=== PATIENT | female | born 1985 | race Caucasian/White ===

== ENCOUNTER 2021-07-18 23:27 | Emergency (ER) | payer MEDICAID ==
[~2021-07-18] VITALS: Ht 175.3 cm; Wt 77.3 kg
[~2021-07-18 23:27] MED LIST: CIPR-202 PO; CLIN-97 PO; CLIN150C8 PO; CYCL-1 PO; HYDR1TAB PO; IBUP-1984 PO; IBUP-1986 PO; ZOF4T PO
[2021-07-18 23:30] VITALS: BP 171/97
[2021-07-19 00:10] LABS: URINE HCG NEGATIVE (NEG)
[2021-07-19] MEDS ORDERED: CefTRIAXone 1000mg IM Kit (w/lidocaine diluent) IM ONE (00:15)
[2021-07-19] MEDS ORDERED: azithromycin 250mg tablet PO ONE (00:15)
[2021-07-19] MEDS ORDERED: DOXY100C76 PO (00:16)
--- NOTE | 2021-07-19 00:25 | NUR ---
PIV site c/d/i s complication or adverse. IVF bolus started as ordered, infusing well without complication. Offered pt blanket, declined. Pt laying supine, bed in lowest position, wheels locked, rail 2/2 up, call talbot in reach. Pt covered with warm blanket. Offered anything else, pt declined offer.
== END 2021-07-19 00:48 | disposition home or self-care (01) ==
LOC: ER 23:28
DX: Z20.2 Contact with and (suspected) exposure to infections with a predominantly sexual mode of transmission (principal); A54.9 Gonococcal infection, unspecified; A53.9 Syphilis, unspecified; F31.9 Bipolar disorder, unspecified; F15.90 Other stimulant use, unspecified, uncomplicated; Z88.1 Allergy status to other antibiotic agents; Z79.2 Long term (current) use of antibiotics; Z79.899 Other long term (current) drug therapy
CPT/HCPCS: 81025; 96372; 99283; J0696

== ENCOUNTER 2022-10-24 19:15 | Emergency (ER) | payer SELFPAY ==
[~2022-10-24] VITALS: Ht 172.7 cm; Wt 77.2 kg
[~2022-10-24 19:15] MED LIST changes: +CLIN-214 PO; -CLIN150C8 PO
[2022-10-24 19:21] VITALS: BP 168/109; PULSE 95; RESP 16; TEMP 97.3; O2SAT 98
[2022-10-24] MEDS ORDERED: CefTRIAXone 500MG IM Kit w/LIDOcaine IM ONE (20:25)
[2022-10-24] MEDS ORDERED: azithromycin 250mg tablet PO ONE (20:25)
[2022-10-24] MEDS ORDERED: ibuprofen tablet 400 MG TABLET PO ONE (20:25)
--- NOTE | 2022-10-24 20:31 | NUR ---
AMANDA CALLED AND WILL DISPATCH OUT OFFICER
[2022-10-24] MEDS ORDERED: IBUP-1986 PO (20:33)
[2022-10-24] MEDS ORDERED: DOXY-1 PO (20:33)
[2022-10-24 21:05] LABS: URINE HCG NEGATIVE (NEG)
--- NOTE | 2022-10-24 21:16 | NUR ---
SO AT BS
== END 2022-10-24 21:32 | disposition home or self-care (01) ==
LOC: ER 19:16
DX: J34.89 Other specified disorders of nose and nasal sinuses (principal); Z11.3 Encounter for screening for infections with a predominantly sexual mode of transmission; F31.9 Bipolar disorder, unspecified; F15.10 Other stimulant abuse, uncomplicated; Z88.1 Allergy status to other antibiotic agents; Z88.0 Allergy status to penicillin; Z79.899 Other long term (current) drug therapy; Y04.8XXA Assault by other bodily force, initial encounter; Y93.89 Activity, other specified; Y92.89 Other specified places as the place of occurrence of the external cause; Y99.8 Other external cause status
CPT/HCPCS: 36415; 81025; 86592; 87491; 87591; 96372; 99283; J0696

== ENCOUNTER 2022-12-29 13:48 | Emergency (ER) | payer MEDICAID | END 2022-12-29 14:41 | disposition left against medical advice (07) | LOC: ER 13:48 | DX: T14.8XXA Other injury of unspecified body region, initial encounter (principal); Z53.21 Procedure and treatment not carried out due to patient leaving prior to being seen by health care provider; Y04.0XXA Assault by unarmed brawl or fight, initial encounter; Y93.89 Activity, other specified; Y92.89 Other specified places as the place of occurrence of the external cause; Y99.8 Other external cause status ==

== ENCOUNTER 2024-09-11 14:08 | Inpatient (IN) | payer MEDICAID ==
[~2024-09-11] VITALS: Ht 175.3 cm; Wt 86.3 kg
--- NOTE | 2024-09-11 14:23 | Physician Documentation ---
History of Present Illness Chief Complaint: Abdominal Pain Stated Complaint: ABD SWELLING Primary Medical Doctor: bette pond HPI 39 year old female reports abdominal pain and a recent hospitalization at [facility] where she was seen for what sounds like a CHF exacerbation. She was discharged yesterday. However she reports that she was trying to get her caregivers at [facility] to work her up for abodminal paind and believes that her complaints were ignored. She has a hard time describing her abdominal pain, points all over, and also says that it is accompanied by pus issuing from her vagina. It is unclear if she received a CT scan or further workup at [facility] for this. She denies fevers and shortness of breath, N/V/D, and urinary symptoms. She also reports using methamphetamine last night. Medication Reconciliation Allergies: Coded Allergies: amoxicillin (Unverified Allergy, Unknown, 09/11/24) Uncoded Allergies: PENICILLIN (Allergy, Intermediate, 05/02/17) RASH Scheduled Ciprofloxacin HCl (Ciprofloxacin HCl), 1 TAB PO BID Clindamycin HCL* (Clindamycin HCL*), 1 CAP PO Q6H Clindamycin HCL* (Clindamycin HCL*), 1 CAP PO Q6H Clindamycin HCl (Clindamycin HCl CAPSULE), 2 CAP PO TID Hydrocodone/Acetaminophen (Vicodin 5-500 Tablet), 1 TAB PO Q6H Ibuprofen (Ibuprofen), 1 TAB PO Q8H Ibuprofen (Ibuprofen), 1 TAB PO Q8H Ibuprofen* (Motrin*), 1-2 TAB PO Q8H Ondansetron ODT* (Zofran ODT*), 4 MG PO Q6H Scheduled PRN Cyclobenzaprine* (Cyclobenzaprine*), 1 TABLET PO Q8H PRN for muscle spasms Miscellaneous Medications [None], (Reported) Past Medical History Past Medical History: No Pertinent History, Bipolar Past Surgical History: no surgical history Alcohol Use: None Drug Use: methamphetamine Lives with: S/O Lives In: Home Occupation: employed Review of Systems All Other Systems at this time: Reviewed and Negative Physical Exam Vital Signs: RN Vital Signs have been reviewed: Yes, Temperature: 96.8, Source: Temporal, Heart Rate: 92, Respiratory Rate: 18, BP: 129/92, Pulse Oximetry: 98, Weight: 86.350 Physical Exam HEENT: PERRL, moist oral mucosa, EOMI Pulmonary: No respiratory distress Cardiac: RRR, no murmur, rub or gallop GI: nondistended, soft, diffusely tender without peritoneal signs, no guarding, no rebound MSK: no deformity 1+ pitting edema to bilateral lower extremities Skin: w/d/i, no rash Neuro: alert, nonfocal Psych: normal affect Progress Progress Note We are able to get some records from [facility] and CT scan performed at their facility in the last 24 hours showed some fatty hepatomegaly as well as some anasarca with mesenteric edema and cardiomegaly but does not appear to show any infectious process. When discussing these results along with her labs patient became upset and eloped. Results/Orders Results/Orders Vital Signs 09/11/24 14:16 Temp 96.8 Pulse 92 Resp 18 B/P (MAP) 129/92 Pulse Ox 98 Medical Decision Making Findings 39 year old female with symptoms as above. Workup has thus far been significant for elevated total bilirubin and a RUQ ultrasound which demonstrates thickened gallbladder wall and pericholecystic fluid without notable gallstones. Some labs and CT scan are pending. Thus far she has a diagnosis of acalculous cholecystitis and I will sign her out to the oncoming ER physician for further workup and disposition. Additional Comments Ddx = PID, cervicitis, cholecystitis, choledocholithiasis, UTI, liver disease, CHF exacerbation Departure Disposition: 30 STILL A PATIENT Admitted to Inpatient Unit: yes, to hospitalist Impression: Primary Impression: Acalculous cholecystitis Condition: Guarded Referrals: NO PRIMARY CARE PROVIDER (PCP) Education Educated: Patient Additional Comment Medical Screen Exam History: This is a 39-year-old female who presents with progressively worsening lower extremity edema and abdominal edema causing pain, patient reports that she has been having shortness shortness breath on exertion and when lying flat. Patient additionally reports feeling ill lately reporting subjective fever. Exam: VITALS: Reviewed and as above. GENERAL: Alert, nontoxic appearing, no apparent distress. RESPIRATORY: No increased work of breathing, no respiratory distress, speaking in full clear sentences CV: Nonpitting lower extremity edema SKIN: Skin of lower extremities is reddened though blanchable MSE performed in triage and patient returned to ED lobby by nursing staff The note accurately reflects work and decisions made by me.SARITA Mattson 09/11/24 14:23 Signature Scribe Signature: . Attestation: The note accurately reflects work and decisions made by me.Edmond Forrester MD 09/11/24 20:07 . JOHN LOREDO Sep 11, 2024 14:23 BETZY MACEDO MD Sep 11, 2024 19:07 EDMOND FORRESTER MD Sep 11, 2024 20:08
--- NOTE | 2024-09-11 14:40 | ELECTROCARDIOGRAPH REPORT ---
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 Jose E Horvath Measurements Intervals [place] Rate: 90 P: 79 OK: 176 QRS: 100 QRSD: 116 T: -33 QT: 386 QTc: 473 Interpretive Statements Sinus rhythm LAE, consider biatrial enlargement Incomplete right bundle branch block Electronically Signed On 09-21-2024 18:43:[address] Jose E Horvath Please click the below link to view image of tracing.
[2024-09-11 14:47] LABS: BASOPHILS % (AUTO) 0.7 % (0-1); EOSINOPHILS % (AUTO) 0.5 % (0-6); HEMATOCRIT 46.2 % (35.0-45.0); HEMOGLOBIN 15.3 g/dl (12.0-16.0); LYMPHOCYTES # (AUTO) 1.4 X10'3 (1.1-4.8); LYMPHOCYTES % (AUTO) 20.9 % (21-51); MEAN CORPUSCULAR HEMOGLOBIN 29.8 PG (27.0-31.0); MEAN CORPUSCULAR VOLUME 90.2 FL (78-98); MEAN PLATELET VOLUME 7.6 FL (7.4-10.4); MONOCYTES # (AUTO) 0.5 X10'3 (0-0.9); MONOCYTES % (AUTO) 8.3 % (2-12); NEUTROPHILS # (AUTO) 4.5 X10'3 (1.8-7.7); NEUTROPHILS % (AUTO) 69.6 % (42-75); PLATELET COUNT 216 X10'3 (140-440); RED BLOOD COUNT 5.13 X10'6 (4.20-5.60); WHITE BLOOD COUNT 6.5 X10'3 (4.5-11.0)
[2024-09-11 15:01] LABS: ALANINE AMINOTRANSFERASE 51 U/L (12-78); ALBUMIN 3.7 G/DL (3.4-5.0); ALKALINE PHOSPHATASE 276 IU/L (46-116); ANION GAP 6 (8-16); ASPARTATE AMINO TRANSFERASE 50 U/L (10-37); BILIRUBIN,TOTAL 4.2 MG/DL (0.1-1.0); BLOOD UREA NITROGEN 19 MG/DL (7-18); CALCIUM 9.2 MG/DL (8.5-10.1); CHLORIDE 102 MMOL/L (99-107); CREATININE 1.12 MG/DL (0.40-0.90); GLUCOSE 112 MG/DL (70-104); POTASSIUM 4.8 MMOL/L (3.5-5.1); SODIUM 138 MMOL/L (135-145); TOTAL CARBON DIOXIDE 30.1 MMOL/L (24-32); eCRCL 70 ML/MIN; eGFR 54 ML/MIN
[2024-09-11 15:08] LABS: LIPASE 22 U/L (16-77); PRO BRAIN NATRIURETIC PEPTIDE 2387 PG/ML (0-125)
[2024-09-11 15:19] LABS: ALBUMIN/GLOBULIN RATIO 0.9 (1.1-1.5); TOTAL PROTEIN 7.9 G/DL (6.4-8.2)
--- NOTE | 2024-09-11 15:28 | RADIOLOGY REPORT ---
EXAM: DI CHEST,SINGLE VIEW HISTORY: CP COMPARISON: None TECHNIQUE: Portable upright AP view of the chest was performed. FINDINGS: No pneumothorax, consolidative infiltrates, or pulmonary edema. The heart is enlarged. IMPRESSION: Cardiomegaly without evidence of acute intrathoracic process.
[2024-09-11] MEDS ORDERED: iohexol 300mg/ml 100ml inj. ONE (16:49)
[2024-09-11 17:03] LABS: BILIRUBIN,URINE NEGATIVE (Neg); CLARITY,URINE CLEAR (Clear); COLOR,URINE YELLOW (Yellow); GLUCOSE, URINE NEGATIVE (Neg); KETONES,URINE NEGATIVE (Neg); LEUKOCYTE ESTERASE ,URINE NEGATIVE (Neg); NITRITES, URINE NEGATIVE (Neg); OCCULT BLOOD,URINE NEGATIVE (Neg); PROTEIN,URINE 100 mg/dl (Neg); UROBILINOGEN,URINE 0.2 E.U/dL (0.2-1.0)
[2024-09-11 17:07] LABS: URINE HCG NEGATIVE (NEG)
[2024-09-11 17:09] LABS: UA COLLECTION TYPE NON-SPECIFIED
[2024-09-11 17:12] LABS: BACTERIA,URINE FEW /HPF (Neg); MUCUS STRANDS NONE SEEN /LPF (Neg); RBC,URINE 0-2 /HPF (0-2); SQUAMOUS EPITHELIAL CELL,UR NONE SEEN /LPF (FEW); TRANSITIONAL EPI CELLS,URINE FEW /HPF; WBC,URINE 0-4 /HPF (0-4)
[2024-09-11 17:13] LABS: AMORPHOUS URATES 1+
--- NOTE | 2024-09-11 17:47 | RADIOLOGY REPORT ---
COMPLETE ABDOMEN ULTRASOUND: INDICATION: abdominal pain, elevated t. bili COMPARISON: None TECHNIQUE: Grayscale sonographic evaluation of the abdomen. FINDINGS: Liver: Right lobe of the liver measures 18.5 cm. Slightly coarsened echotexture. Patent main portal vein with appropriately directed flow. Gallbladder and biliary tree: Gallbladder argueta thickened measuring 5 mm with trace pericholecystic f luid. The gallbladder is not distended. There i gallbladder sludge. 5 mm cholesterol polyp. Kidneys: Right kidney measures 12.2 cm. Normal echotexture and parenchymal thickness. No hydronephrosis, solid mass or nephrolithiasis. IMPRESSION: 1. Gallbladder wall thickening with sludge with trace pericholecystic fluid without distension. Findi ngs are equivocal for cholecystitis. If there is clinical concern consider HIDA scan. 2. 5 mm cholesterol gallbladder polyp, given size no definite follow-up needed.
--- NOTE | 2024-09-11 18:42 | RADIOLOGY REPORT ---
Indication: abdominal pain Technique: CT axial images of the abdomen and pelvis are obtained with intravenous contrast. Coronal and sagittal reformats were obtained. Radiation Dose Information: CTDI volume is 20 mGy. Dose-length product is 1008 mGy*cm Comparison: None FINDINGS: Cardiomegaly. Right heart enlargement reflux of contrast the hepatic veins and IVC. Adrenal glands, spleen and pancreas unremarkable. No enhancing hepatic lesion. Hepatic periportal edema. IVC distention. Pericholecystic edema. No hydronephrosis. Bilateral perinephric edema. Stomach partially distended. Small bowel loops demonstrate moderate distention. Moderate volume stool in the colon. Bowel wall edema and thickening of the ascending and proximal tra nsverse colon. Abdominal aorta normal in caliber. Mesenteric edema. Scattered mesenteric and retroperitoneal lymph nodes measuring approximately 1 cm in short axis. Bladder is partially distended. Small amount of ascites fluid extending to the pelvis. Left inguinal lymph nodes measuring up to 10 mm. Right inguinal lymph nodes measuring up to 11 mm. Soft tissue edema / anasarca. [id number] thoracolumbar degenerative disc disease most pronounced at L5-S1. IMPRESSION: Mesenteric edema, periportal edema, pericholecystic edema, perinephric edema, IVC distention. These findings could be secondary to fluid /volume overload, septicemia, heart failure, infectious and infl ammatory processes. Correlate clinically. Cardiomegaly. Reflux of contrast in the hepatic veins and IVC may represent underlying right heart dy sfunction. There is evidence of right heart enlargement. Mesenteric edema. Small moderate ascites fluid which extends to the pelvis. Soft tissue edema / anasarca. Mesenteric, retroperitoneal lymph nodes up to 1 cm with differential considerations including reactiv e etiologies, infection/inflammatory processes, malignancy. Bowel wall edema and thickening of the ascending and transverse colon which can be secondary to genaro l hypertension related enteropathy, inflammatory bowel disease, colitis. Portal vein suboptimally characterized. Recommend abdominal ultrasound to ensure portal vein patency and exclude portal vein thrombosis. Findings described.
[2024-09-11 19:24] LABS: URINE AMPHETAMINE SCREEN POSITIVE (Neg); URINE BARBITUATE SCREEN NEGATIVE (Neg); URINE BENZODIAZEPINES SCREEN NEGATIVE (Neg); URINE CANNABINOID SCREEN NEGATIVE (Neg); URINE COCAINE SCREEN NEGATIVE (Neg); URINE METHADONE SCREEN NEGATIVE (Neg); URINE OPIATE SCREEN NEGATIVE (Neg); URINE PHENCYCLIDINE SCREEN NEGATIVE (Neg)
[2024-09-11] MEDS: CefTRIAXone/D5W-Rocephin 1gm 50 ML IV ONE (19:59)
[2024-09-11] MEDS: PERFLUTREN PROTEIN-A MICROSPHR (Optison) 0.22 MG/ML 3ML VIAL IV ONE ×2 (20:45→22:25)
[2024-09-11] MEDS ORDERED: magnesium hydroxide 30ml (MOM) UD suspension PO PRN (22:25)
[2024-09-11] MEDS ORDERED: HYDROcodone/acetaminophen 5mg/325mg tablet PO PRN (22:25)
[2024-09-11] MEDS ORDERED: potassium Cl 20 mEq SR tablet PO PRN ×2 (22:25)
[2024-09-11] MEDS ORDERED: magnesium sulf-water 4G/100mL 100 ML IV PRN (22:25)
[2024-09-11] MEDS ORDERED: magnesium sulf-water 2g/50mL 50 ML IV PRN (22:25)
[2024-09-11] MEDS ORDERED: morphine 2 MG/ML inj. syringe IV PRN (22:25)
[2024-09-11] MEDS ORDERED: magnesium Cl slow-release 64mg tablet PO PRN (22:25)
[2024-09-11] MEDS ORDERED: potassium Cl 40MEQ/1/2NS 520ml 520 ML IV PRN (22:25)
[2024-09-11] MEDS ORDERED: acetaminophen 325mg tablet PO PRN (22:25)
[2024-09-11] MEDS ORDERED: ondansetron/PF 4mg/2ml inj IV PRN (22:25)
--- NOTE | 2024-09-11 23:06 | HISTORY AND PHYSICAL-Residence ---
History & Physical Providers to CC Resident Creating Document: MARIELOS JACOBS, RES CC: TRINIDAD CHAVIRA MD ~ History of Present Illness Primary Medical Doctor: bette pond Reason for Admit\Complaint: Retaining fluids, fever associated with chills and worsening edema History of Present Illness A 39-year-old female who is homeless with multiple medical comorbidities presented to the ED with presenting complaints of retaining fluids, worsening edema, vaginal pus discharge and fever with chills. Patient states that she has been swelling up with increasing abdominal girth, pedal edema for the last one and half weeks. Patient also states that she had fever associated with chills with the maximum of 100.3 noted on her vomitus. Patient endorses epigastric and lower abdominal pain with no radiation with a severity of 5/10, burning/sharp in character associated with nausea and vomitings mostly dry heaving but has vomitings episodes with mostly saliva. Patient also describes that her pain worsens after eating. Patient is supposed to use 2-3 L of oxygen at home but has never used as she is homeless. Patient also states that she has substernal chest pain which is pressure-like with a severity of 7/10 with radiation to the left arm neck and ear that has been constant associated with shortness of breaths and present mostly on exertion but relieved with nitroglycerin. She has been having this chest pain for quite a bit of time that she has been neglecting. Patient states that she has shortness of breaths and can not walk more than 15 ft, Patient endorses orthopnea, PND, palpitations. test in an [facility] has been negative. Additionally patient states that she has not had her periods for the last four months and she is sexually active. Allergies: Coded Allergies: amoxicillin (Unverified Allergy, Unknown, 09/11/24) Uncoded Allergies: PENICILLIN (Allergy, Intermediate, 05/02/17) RASH Home Medications Home Medications Active Ibuprofen 800 Mg Tablet 1 Tab PO Q8H 10 Days Clindamycin HCL* (Clindamycin HCl) 300 Mg Capsule 1 Cap PO Q6H Clindamycin HCL* (Clindamycin HCl) 300 Mg Capsule 1 Cap PO Q6H Cyclobenzaprine* (Cyclobenzaprine HCl) 10 Mg Tablet 1 Tablet PO Q8H PRN Ibuprofen 800 Mg Tablet 1 Tab PO Q8H 10 Days Clindamycin HCl CAPSULE (Clindamycin HCl) 150 Mg Capsule 2 Cap PO TID Zofran ODT* (Ondansetron HCl) 4 Mg Tab.rapdis 4 Mg PO Q6H may sub tablets or phenergan 25mg every 6 hours #12 Motrin* (Ibuprofen) 400 Mg Tablet 1-2 Tab PO Q8H Ciprofloxacin HCl (Ciprofloxacin) 500 Mg Tab 1 Tab PO BID Vicodin 5-500 Tablet (Acetaminophen/Hydrocodone Bitart) 5 Mg/500 Mg Tablet 1 Tab PO Q6H Reported [None] Past Medical History Past Medical History Pulmonary fibrosis HTN Diabetes mellitus type 2 Cor pulmonale Valve regurgitation Past Surgical History Surgical History Comment None Past Social History Social History Comment Smokes 1-2 cigarettes per day for the last 27 years Uses methamphetamine Does not consume alcohol, marijuana Homeless Goes to [facility] for primary care. Smoking: Cigarettes Alcohol Use: None Drug Use: Methamphetamine Lives with: S/O Lives In: Home Occupation: employed ROS ROS All other systems reviewed in full and negative except for the pertinent positives mentioned in the HPI. Exam Vitals: Vital Signs Date Time Temp Pulse Resp B/P (MAP) Pulse Ox O2 Delivery O2 Flow Rate FiO2 09/11/24 20:01 96.8 96 12 125/89 (101) 92 0 General: General: Alert, awake, oriented, in acute distress HEENT: PERRLA, icterus, pallor present, no lymphadenopathy, carotid bruit Respiratory system: Bilateral vesicular breath sounds heard, no adventitious breath sounds CVS: S1-S2 heard, grade 3/6 holosystolic murmur present in the mitral area that is radiating to the tricuspid area GI: Generalized distention of the abdomen, tenderness in the epigastric and lower abdominal region present Soft, no organomegaly, no guarding/rigidity, hyperactive bowel sounds present Neuro: No focal neurological deficits present Extremities: Erythematous 3+ pitting edema, bluish discoloration of bilateral lower extremities, peripheral pulses present, a laceration present on the right lower extremity Skin: Warm and dry Diagnostic Data Last Recorded Lab Results: 09/11/24 1438 09/11/24 1438 Advance Care Planning Advanced Care plannin - 30 Minutes (I spent 20 minutes discussing various resuscitative measures and the patient decided to be full code) Additional Plan Assessment: A 39-year-old female who is homeless with multiple medical comorbidities presented to the ED with a worsening edema, abdominal pain and chest pain. Patient is admitted for the evaluation management of possible acute cholecystitis, heart failure with pending echo. Plan: Acute on chronic Heart failure, pending echo History of cor pulmonale Endocarditis, rule out Anasarca Elevated pro BNP, follow up with echo Cardiomegaly. Reflux of contrast in the hepatic veins and IVC may represent underlying right heart dysfunction. There is evidence of right heart enlargement. Chest x-ray: Cardiomegaly Received one dose of IV Lasix 60 mg followed by IV Lasix 40 mg b.i.d. Consider optimization with GDM T Strict Is&Os Daily weights 1.5 L fluid restriction Troponinemia possibly type 2 MN Can not exclude ACS/NSTEMI EKG: Normal sinus rhythm Follow up with a repeat troponin Follow up with echo Lexiscan in a.m. Bilateral lower extremity edema DVT, RULE OUT Follow up with vascular and arterial ultrasound of bilateral lower extremities Follow up with D-dimer Possible acute cholecystitis Ultrasound abdomen: Gallbladder wall thickening with sludge with trace pericholecystic fluid without distension. Findings are equivocal for cholecystitis. If there is clinical concern consider HIDA scan. 2. 5 mm cholesterol gallbladder polyp, given size no definite follow-up needed. CT abdomen pelvis at outside hospital: Mesenteric edema, body wall edema, hepatitis or cirrhosis can not be excluded CT abdomen pelvis at [facility]: Mesenteric edema, periportal edema, pericholecystic edema, perinephric edema, IVC distention. These findings could be secondary to fluid /volume overload, septicemia, heart failure, infectious and inflammatory processes. Correlate clinically. Small moderate ascites fluid which extends to the pelvis. Soft tissue edema / anasarca. Mesenteric, retroperitoneal lymph nodes up to 1 cm with differential considerations including reactive etiologies, infection/inflammatory processes, malignancy. Bowel wall edema and thickening of the ascending and transverse colon which can be secondary to portal hypertension related enteropathy, inflammatory bowel disease, colitis. IV Zofran 4 mg p.r.n. Pain management Follow up with HIDA scan Sepsis, POA History of drug abuse Follow up with CT chest, urinalysis normal Source unknown in the moment Started the patient on IV vancomycin, meropenem Follow up with blood cultures and hepatitis panel serologies Vaginal pus discharge Started the patient on azithromycin Follow up with chlamydia and Neisseria serologies Portal venous thrombosis, ruled out Ultrasound: Patent main portal vein with appropriately directed flow. Prerenal TRISTIAN probably secondary to renal tubular stasis Elevated BUN and creatinine Continue to monitor BMP Substance abuse disorder health services administrator consult HTN Started the patient on losartan 50 mg Diabetes mellitus type 2 A1c: 6.7 On hyper/hypoglycemia protocol Low sliding scale insulin Code status: Full code Diet: NPO after midnight DVT prophylaxis: SCD Disposition: Admit to PCU, follow up with Jong wilburn in a.m., follow up with DHAVAL Jacobs MD Internal Medicine, PGY 1 I discussed the patient with the resident and agree with the assessment and plan, as documented above, with no changes. Trinidad Chavira MD Critical Care. Date of Service: Sep 11, 2024 Billing Provider: TRINIDAD CHAVIRA MD, SIVA, RES Sep 11, 2024 23:06 TRINIDAD HCAVIRA MD Sep 12, 2024 17:44
[2024-09-11 23:11] LABS: HEMOGLOBIN A1C 6.7 % (4.5-6.2)
[2024-09-11] MEDS: ondansetron/PF 4mg/2ml inj IV PRN (23:14)
[2024-09-11] MEDS ORDERED: FURO-150 PO (23:16)
[2024-09-11] MEDS: furosemide 10 MG/1 ML 10ml inj IV ONE (23:20)
[2024-09-11] MEDS ORDERED: metoprolol tartrate 1mg/ml inj IV PRN (23:35)
[2024-09-11] MEDS ORDERED: aminophylline 500mg/20ml vial IV PRN (23:35)
[2024-09-11] MEDS ORDERED: glucagon, human recombinant 1mg kit SUBCUT PRN (23:35)
[2024-09-11] MEDS ORDERED: DEXTROSE 15 GM of carb/4 tabs (each vial/BOTTLE has 4 tablets) PO PRN (23:35)
[2024-09-11] MEDS ORDERED: dextrose 50%-water 50ml dispensing syringe IV PRN ×2 (23:35)
[2024-09-11] MEDS ORDERED: nitroGLYCERIN 0.4mg SUBLingual tab SL PRN (23:35)
[2024-09-11 23:52] LABS: D-DIMER 11.61 MG/L FEU (0-0.50)
[2024-09-12] VITALS (9 sets, daily range): BP systolic 107–122; BP diastolic 65–87; PULSE 84–93; RESP 13–21; TEMP 97–98.3; O2SAT 90–96
[2024-09-12] MEDS: azithromycin 250mg tablet PO ONE (00:52)
[2024-09-12] MEDS: meropenem inj 500 MG in normal saline 100ml IV soln 100 ML IV SCH (00:58)
[2024-09-12] MEDS: MEROPENEM 500MG/50ML-NS IVPB 50 ML IV ONE (00:59)
[2024-09-12] MEDS: VANCOMYCIN 2GM/400ML H20 (PEG) 400 ML IV ONE ×2 (00:59→02:12)
[2024-09-12] MEDS: mag hydrox/Alum hydrox/simeth 30ml oral suspension PO PRN (03:15)
[2024-09-12 05:19] LABS: BASOPHILS # (AUTO) 0.1 X10'3 (0-0.2); EOSINOPHILS # (AUTO) 0.1 X10'3 (0-0.9); EOSINOPHILS % (AUTO) 1.4 % (0-6); HEMATOCRIT 46.5 % (35.0-45.0); HEMOGLOBIN 15.1 g/dl (12.0-16.0); LYMPHOCYTES # (AUTO) 2.2 X10'3 (1.1-4.8); LYMPHOCYTES % (AUTO) 30.5 % (21-51); MEAN CORPUSCULAR HEMOGLOBIN 29.7 PG (27.0-31.0); MEAN CORPUSCULAR HGB CONC 32.6 g/dL (33.0-36.5); MEAN CORPUSCULAR VOLUME 91.2 FL (78-98); MEAN PLATELET VOLUME 7.6 FL (7.4-10.4); MONOCYTES # (AUTO) 0.5 X10'3 (0-0.9); MONOCYTES % (AUTO) 7.1 % (2-12); NEUTROPHILS # (AUTO) 4.3 X10'3 (1.8-7.7); PLATELET COUNT 230 X10'3 (140-440); RED BLOOD COUNT 5.09 X10'6 (4.20-5.60); RED CELL DISTRIBUTION WIDTH 16.3 % (11.5-14.5); WHITE BLOOD COUNT 7.2 X10'3 (4.5-11.0)
[2024-09-12 05:40] LABS: ALANINE AMINOTRANSFERASE 47 U/L (12-78); ALBUMIN 3.5 G/DL (3.4-5.0); ANION GAP 13 (8-16); ASPARTATE AMINO TRANSFERASE 45 U/L (10-37); BILIRUBIN,TOTAL 5.1 MG/DL (0.1-1.0); BLOOD UREA NITROGEN 16 MG/DL (7-18); BUN/CREATININE RATIO 13.9 (10.0-20.0); CALCIUM 8.9 MG/DL (8.5-10.1); CHLORIDE 102 MMOL/L (99-107); CREATININE 1.15 MG/DL (0.40-0.90); GLUCOSE 80 MG/DL (70-104); MAGNESIUM 2.2 MG/DL (1.5-2.4); POTASSIUM 4.6 MMOL/L (3.5-5.1); SODIUM 140 MMOL/L (135-145); TOTAL CARBON DIOXIDE 25.4 MMOL/L (24-32); eCRCL 69 ML/MIN; eGFR 53 ML/MIN
[2024-09-12 05:41] LABS: ALKALINE PHOSPHATASE 252 IU/L (46-116); HDL CHOLESTEROL 62 MG/DL (35-60); LDL CHOLESTEROL 68 MG/DL (50-100)
[2024-09-12 05:42] LABS: ALBUMIN/GLOBULIN RATIO 0.9 (1.1-1.5); CHOL/HDL RATIO 2.3 (0.00-4.99); CHOLESTEROL 140 MG/DL (0-200); TOTAL PROTEIN 7.5 G/DL (6.4-8.2); TRIGLYCERIDES 56 MG/DL (20-135)
[2024-09-12] MEDS: INSULIN LISPRO 100 UNIT/ML INSULN.PEN MULTI-DOSE SQ SCH (07:00)
--- NOTE | 2024-09-12 07:07 | VASCULAR REPORT ---
BILATERAL Lower Extremity Arterial Duplex Date: 09/12/2024 05:01 AM Clinical History: Leg pain. Comparison: None Technique: Duplex Doppler evaluation including color Doppler and spectral/pulsed waveform analysis of the lower extremity arteries was performed. Finding: RIGHT: Peak systolic velocities are as follows: SENIOR COMPENSATION CONSULTANT 66 cm/s Deep femoral 63 cm/s SFA proximal 76 cm/s SFA mid-portion 80 cm/s SFA distal 63 cm/s Popliteal 43 cm/s Posterior tibial 25 cm/s Anterior tibial 30 cm/s Peroneal 33 cm/s Dorsalis pedis not imaged The waveforms are triphasic. LEFT: Peak systolic velocities are as follows: SENIOR COMPENSATION CONSULTANT 78 cm/s Deep femoral 61 cm/s SFA proximal 80 cm/s SFA mid-portion 66 cm/s SFA distal 65 cm/s Popliteal 52 cm/s Posterior tibial 26 cm/s Anterior tibial 27 cm/s Peroneal 17 cm/s Dorsalis pedis not imaged The waveforms are triphasic. REFERENCE VALUES, [facility]) vascular Imaging Lab Criteria: Peak systolic velocity ranges (in cm/sec) are as follows: <150 cm/s - <20 % stenosis 150-200 cm/s - 20-49% stenosis 200-300 cm/s - 50-75% stenosis >300 cm/s -> 75% stenosis IMPRESSION: 1. There is no significant focal stenosis identified in the right or left lower extremity.
--- NOTE | 2024-09-12 07:41 | VASCULAR REPORT ---
Bilateral lower extremity venous duplex Clinical History: Swelling. Comparison: None Findings: Duplex Doppler evaluation of the deep venous systems of both lower extremities from the common femora l veins to the popliteal veins including color Doppler and spectral/pulsed waveform analysis was perf ormed. RIGHT SIDE: The common femoral vein demonstrates appropriate compressibility and waveform variability. There is compressibility/patency of the great saphenous vein at the proximal thigh. The femoral vein demonstrates appropriate compressibility and waveform variability. The deep femoral vein demonstrates appropriate compressibility and waveform variability. The popliteal vein demonstrates appropriate compressibility and waveform variability. There is normal compressibility at the tibioperoneal trunk. There is a lymph node measuring 2.4 x 0.5 cm. LEFT SIDE: The common femoral vein demonstrates appropriate compressibility and waveform variability. There is compressibility/patency of the great saphenous vein at the proximal thigh. The femoral vein demonstrates appropriate compressibility of the femoral vein. There is abnormal bot h arterial and venous flow seen on color Doppler images in the proximal and mid femoral vein. The deep femoral vein demonstrates appropriate compressibility and waveform variability. The popliteal vein demonstrates appropriate compressibility and waveform variability. There is normal compressibility at the tibioperoneal trunk. There is a lymph node measuring 1.9 x 0.6 cm. Impression: 1. No deep venous thrombosis in the bilateral lower extremities. 2. Abnormal doppler flow suggesting arterial and venous flow in the left proximal and mid femoral vei n. There is no obvious arterial connection and there was none seen on the concurrently performed talat rial ultrasound of the legs. However the doppler signal is abnormal and could suggest an underlying venous malformation. Arterial venous fistula is not excluded. Consider a repeat left lower extremity ultrasound targeted to the area of concern and including spectral waveform analysis exactly at the a john in question in the left femoral vein or alternatively CT angiography of the left lower extremity may be performed.
[2024-09-12] MEDS: DEXTROSE 15 GM of carb/4 tabs (each vial/BOTTLE has 4 tablets) PO PRN (07:51)
[2024-09-12] MEDS: heparin, porcine 5000 units/ml vial SQ SCH (08:00)
[2024-09-12] MEDS ORDERED: piperacillin/tazo 4.5gm/100ml 100 ML IV SCH (08:00)
[2024-09-12] MEDS ORDERED: azithromycin/NS 500mg/250ml 250 ML IV SCH (08:00)
[2024-09-12] MEDS: furosemide 10 MG/1 ML 10ml inj IV SCH (08:04)
[2024-09-12] MEDS: docusate sod 100mg capsule PO SCH (08:06)
[2024-09-12] MEDS: losartan 50mg tablet PO SCH (08:06)
[2024-09-12] MEDS: K and/or MAG REPLACEMENT MC SCH (08:12)
[2024-09-12] MEDS: MEROPENEM 500MG/50ML-NS IVPB 50 ML IV SCH (08:38)
[2024-09-12] MEDS ORDERED: VANCOMYCIN/H2O 750mg/150mL PB 150 ML IV SCH (13:00)
[2024-09-12] MEDS ORDERED: vancomycin inj. 750 MG in normal saline 250ml IV soln 250 ML IV SCH (13:00)
[2024-09-12] MEDS: regadenoson 0.4mg/5ml syringe IV PRN (13:10)
[2024-09-12] MEDS ORDERED: aminophylline 250mg/10ml inj. IV PRN (13:15)
[2024-09-12] MEDS ORDERED: iohexol 350MG/ML 100ml bottle IV ONE (13:19)
--- NOTE | 2024-09-12 14:29 | RADIOLOGY REPORT ---
Procedure: NM NM HIDA SCAN Exam Date: 09/12/2024 10:29 AM Clinical History: equivocal results of acute cholecystitis on US Comparison Study: None Technique: Following the intravenous administration of 6 mCi of technetium 99m labeled Choletec multi ple planar abdominal planar images were obtained in anterior projection in 5 minute intervals for 60 minutes . Right lateral images were obtained at 60 minutes after injection. Findings: The liver appears grossly normal in size. There is no abnormal persistence of the cardiac or blood po ol activity. There is prompt visualization of the gallbladder and excretion of activity into the smal l bowel. Impression: 1. No evidence of cystic duct obstruction.
[2024-09-12] MEDS: vancomycin/NS 1 GM ADD-VANTAGE 250 ML X 1 DOSE IV SCH (15:30)
--- NOTE | 2024-09-12 18:40 | RADIOLOGY REPORT ---
EXAM: CT Angiography Chest With Intravenous Contrast CLINICAL INDICATION: high D-dimer TECHNIQUE: Axial computed tomographic angiography images of the chest with intravenous contrast. Th is CT exam was performed using one or more of the following dose reduction techniques: automated exp osure control, adjustment of the mA and/or kV according to patient size, and/or use of iterative lolita nstruction technique. MIP reconstructed images were created and reviewed. CONTRAST: COMPARISON: None FINDINGS: LIMITATIONS: Suboptimal opacification of the pulmonary arteries. PULMONARY ARTERIES: No pulmonary embolism is identified. Some of the distal pulmonary arteries can not be evaluated due to suboptimal opacification. AORTA: No acute findings. No thoracic aortic aneurysm. LUNGS AND PLEURAL SPACES: Suggestion of pulmonary hypertension. Bibasilar atelectasis or scarring. No mass. No significant effusion. No pneumothorax. HEART: Mild cardiomegaly. No significant pericardial effusion. No evidence of RV dysfunction. BONES/JOINTS: No acute fracture. No dislocation. SOFT TISSUES: Unremarkable. LYMPH NODES: Unremarkable. No enlarged lymph nodes. INTRAPERITONEAL SPACE: Large fatty liver with trace ascites. OTHER FINDINGS: . IMPRESSION: 1. No pulmonary embolism is identified. Some of the distal pulmonary arteries cannot be evaluated d ue to suboptimal opacification. 2. Suggestion of pulmonary hypertension.
--- NOTE | 2024-09-12 18:51 | PROGRESS NOTE- Residence ---
Progress Note - Resident Providers to CC Resident Creating Document: TANYA SONDRADON Marie, RES ~ Antibiotic Timeout Antibiotic Ordered?: Yes Subjective The patient has been evaluated at the bedside. The patient states that she has been experiencing vaginal secretion greenish in color and associated lower abdominal pain described as a burning type, 5/10 in intensity, without radiation. The patient also noted bilateral lower extremity swelling. Objective Vital Signs Date Time Temp Pulse Resp B/P (MAP) Pulse Ox O2 Delivery O2 Flow Rate FiO2 09/12/24 08:06 93 09/12/24 08:00 92 Nasal Cannula 2.0 09/12/24 07:09 98.3 16 122/83 (96) Physical exam: General: Well alert, well oriented, not confused, not agitated, not in acute distress, well cooperated during the physical. HEENT: Conjunctive are pink, sclerae clear, icteric, pupil is equal in both sides, reactive to light, no ear discharge, no pharyngeal erythema or an edema. Neck: Supple, no JVD, no lymphadenopathy and thyromegaly. Chest: Equal air entry on both lungs, no additional sounds no rhonchi no wheezing at the moment. Cardiovascular: S1-S2 regular sinus rhythm and, regular rate, systolic murmur best heard in the mitral area. Abdomen: No visible peristalsis, Bowel sounds present on auscultation, soft, nontender, no guarding, no rigidity Extremities: No obvious deformities, 3+ pedal edema, capillary refill intact, peripheral pulsations are intact on both sides, presence of cross in the right lower extremity as per patient from shaving. Central Nervous System: No focal neurological deficits, no motor or sensory weakness in all 4 extremities, could move all 4 extremities, 2+ deep tendon reflexes, negative Babinski. Musculoskeletal: No joint swelling, deformities, inflammations, and no scoliosis and back tenderness Skin: Warm and dry. Result Diagram: 09/13/24 0502 09/13/24 0502 Coagulation Studies Laboratory Tests Test 09/11/24 23:25 D-Dimer 11.61 MG/L FEU (0-0.50) H D-Dimer Comment Assessment Assessment 39-year-old female patient admitted with multiple medical comorbidities, presented to the emergency department with chief complaint of greenish vaginal secretion. Plan Plan Acute exacerbation of diastolic congestive heart failure: Cor pulmonale: Right ventricular heart failure: Endocarditis-rule out: Anasarca: The patient states that she has been experienced bilateral lower extremity swelling. Echocardiogram: Impression: LVEF 65-70%, RVSP 79 mmHg. No evidence of vegetations. CT abdomen pelvis at [facility]: Mesenteric edema, periportal edema, pericholecystic edema, perinephric edema, IVC distention. These findings could be secondary to fluid /volume overload, septicemia, heart failure, infectious and inflammatory processes. Correlate clinically. Small moderate ascites fluid which extends to the pelvis. Soft tissue edema / anasarca. Mesenteric, retroperitoneal lymph nodes up to 1 cm with differential considerations including reactive etiologies, infection/inflammatory processes, malignancy. Bowel wall edema and thickening of the ascending and transverse colon which can be secondary to portal hypertension related enteropathy, inflammatory bowel disease, colitis. ProBNP: 2387. Lasix 40 mg IV b.i.d. Strict Is&Os Daily weights 1.5 L fluid restriction Troponinemia possibly type 2 OH Can not exclude ACS/NSTEMI EKG: Normal sinus rhythm Troponin levels [phone] Echocardiogram: Impression: LVEF 65-70%, RVSP 79 mmHg. No evidence of vegetations. Lexiscan in a.m. not able to perform due to anxiety of the patient. We will be performed tomorrow. Bilateral lower extremity edema DVT, RULE OUT Pulmonary embolism-ruled out: Vascular ultrasound: No deep venous thrombosis in the bilateral lower extremities. Arterial Doppler ultrasound: There is no significant focal stenosis identified in the right or left lower extremity. D-dimer 11.61. CTA of the chest: no pulmonary embolism is identified. Some of the distal pulmonary arteries cannot be evaluated due to suboptimal opacification. Suggestion of pulmonary hypertension. Possible acute cholecystitis-ruled out: Portal venous thrombosis, ruled out Ultrasound abdomen: Gallbladder wall thickening with sludge with trace pericholecystic fluid without distension. Findings are equivocal for cholecystitis. If there is clinical concern consider HIDA scan. 2. 5 mm cholesterol gallbladder polyp, given size no definite follow-up needed. CT abdomen pelvis at outside hospital: Mesenteric edema, body wall edema, hepatitis or cirrhosis can not be excluded CT abdomen pelvis at [facility]: Mesenteric edema, periportal edema, pericholecystic edema, perinephric edema, IVC distention. These findings could be secondary to fluid /volume overload, septicemia, heart failure, infectious and inflammatory processes. Correlate clinically. Small moderate ascites fluid which extends to the pelvis. Soft tissue edema / anasarca. Mesenteric, retroperitoneal lymph nodes up to 1 cm with differential considerations including reactive etiologies, infection/inflammatory processes, malignancy. Bowel wall edema and thickening of the ascending and transverse colon which can be secondary to portal hypertension related enteropathy, inflammatory bowel disease, colitis. Ultrasound: Patent main portal vein with appropriately directed flow. IV Zofran 4 mg p.r.n. Pain management HIDA SCAN: No evidence of cystic duct obstruction. Vaginal pus discharge: Possible chlamydia vs Trichomona infection versus gonorrhea: No sepsis criteria: The patient states greenish vaginal secretion Follow up with chlamydia and Neisseria serologies On ceftriaxone 1 g daily. On metronidazole 500 mg b.i.d. Culturelle [address] mmu b.i.d. Prerenal TRISTIAN probably secondary to renal tubular stasis Elevated BUN and creatinine. Follow-up urine lytes. 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 Losartan 50 mg Diabetes mellitus type 2 A1c: 6.7 Hyper/hypoglycemia protocol in place. Low-dose short-acting insulin. Code status: Full code DVT prophylaxis: Heparin Analgesia/sedation: Morphine Line/tube: PIV GI prophylaxis: None Nutrition: 75 carb controlled diet PT: Ordered Prognosis: Guarded Disposition: We will continue medical management. Don Coyle Internal Medicine Resident [facility] Addendum Patient was seen in presence of nursing staff, resident and charge nurse today. Patient was showing signs of mood swings not very cooperative during exam. First she was concerned about the vaginal discharge I did the genital exam I was not able to get any greenish discharged on glove and rest of the vulva and vagina was not swollen red on appearance. Patient was also concerned about the swelling over her legs and over her belly she is aware that she had recent meth use. Has clinical signs of right sided congestive heart failure. Patient wanted to get the stress test stress test was done which was abnormal cardiology consultation requested from Dr. Amador and Dr. Amador evaluated the patient today. No recommendation for cardiac catheterization at this point of time and recommended medical management. Patient was upset that we are planning to discharge the patient patient needs to be re-evaluated in a.m. for discharge plan. Date of Service: Sep 12, 2024 Billing Provider: LEVAR BATES MD, FRANCO MAYCO, RES Sep 12, 2024 18:51 LEVAR BATES MD Sep 13, 2024 17:56
--- NOTE | 2024-09-12 18:59 | CARDIOLOGY REPORT ---
APPROVED REPORT EXAM: Comprehensive 2D, Doppler, and color-flow Echocardiogram. 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 108.2 cm/s AoV VTI 13.4 cm AO Peak GR. 4.7 mmHg AO Mean GR. 2 mmHg LVOT VTI 18.19 cm LVOT Peak Vitor. 91.3 cm/s TATY(VTI)/BSA 4.25 cm2/m2 TATY (VTI) 4.25 cm2 Mitral Valve MV E Velocity 59.2 cm/s MV Peak Gr. 4 mmHg MV DECEL TIME 160 ms MV A Velocity 82.0 cm/s MV PHT 20 ms E/A Ratio 0.7 MVA (PHT) 11.00 cm2 MV REvu956.3 cm/s TDI Lateral E' P. V9.59 cm/s E/Lateral E' 6.2 Pulmonary Valve PAEDP12.33 mmHg Tricuspid Valve TR P. Velocity 414 cm/s RAP ESTIMATE 10 mmHg TR Peak Gr. 69 mmHg RVSP 79 mmHg LEFT VENTRICLE Left ventricular cavity is small with normal wall thickness. Overall systolic function is normal. Fla ttened septum consistent with right ventricular volume and pressure overload. LVEF is 65-70%. RIGHT VENTRICLE Right ventricle is severely dilated. ATRIA The left atrium size is normal. Right atrium is severely dilated. AORTIC VALVE Trileaflet AV appears mildly sclerotic without stenosis. No insufficiency. MITRAL VALVE Mitral valve leaflets are mildly thickened with mild annular calcification. No stenosis. Trace regurg itation. TRICUSPID VALVE The tricuspid valve is normal in structure with moderate regurgitation. PULMONIC VALVE The pulmonary valve is normal in structure with trace regurgitation. GREAT VESSELS The aortic root is normal in size. The ascending aorta is normal in size. IVC is dilated and collapse s less than 50% with inspiration. PERICARDIUM Normal pericardium. No effusion. Other Information Study Quality: Adequate Conclusion Left ventricular cavity is small with normal wall thickness. Overall systolic function is normal. Fl attened septum consistent with right ventricular volume and pressure overload. LVEF is 65-70%. Right ventricle is severely dilated. Elevated with herat pressures with an RVSP of 79 mmHg. The left atrium size is normal. Right atrium is severely dilated. Trileaflet AV appears mildly sclerotic without stenosis. No insufficiency. Mitral valve leaflets are mildly thickened with mild annular calcification. No stenosis. Trace regu rgitation. The tricuspid valve is normal in structure with moderate regurgitation. The pulmonary valve is normal in structure with trace regurgitation. Normal pericardium. No effusion.
[2024-09-12 20:57] LABS: BILIRUBIN,URINE NEGATIVE (Neg); CLARITY,URINE CLEAR (Clear); COLOR,URINE YELLOW (Yellow); GLUCOSE, URINE NEGATIVE (Neg); KETONES,URINE NEGATIVE (Neg); LEUKOCYTE ESTERASE ,URINE NEGATIVE (Neg); NITRITES, URINE NEGATIVE (Neg); OCCULT BLOOD,URINE NEGATIVE (Neg); PH,URINE 5.5 (4.8-8.0); PROTEIN,URINE NEGATIVE (Neg); UROBILINOGEN,URINE 0.2 E.U/dL (0.2-1.0)
[2024-09-12] MEDS: metroNIDAZOLE-Flagyl 500mg/NS 100 ML IV SCH (20:57)
[2024-09-12] MEDS: furosemide 40mg/4ml inj IV SCH (20:57)
[2024-09-12 20:58] LABS: UA COLLECTION TYPE NON-SPECIFIED
[2024-09-12 21:09] LABS: TOTAL PROTEIN,URINE RANDOM 27.4 MG/DL
[2024-09-12] MEDS: CefTRIAXone/D5W-Rocephin 1gm 50 ML IV SCH (21:20)
[2024-09-12 21:26] LABS: UA EOSINOPHILS FEW EOS /HPF
[2024-09-12] MEDS: Melatonin 3mg tablet PO ONE (23:17)
[2024-09-13] VITALS (17 sets, daily range): BP systolic 91–146; BP diastolic 56–96; PULSE 75–90; RESP 15–28; TEMP 97.2–98.1; O2SAT 91–97
[2024-09-13 05:18] LABS: HBSAG SCREEN Negative (Negative); HEP A AB, IGM Negative (Negative); HEP B CORE AB, IGM Negative (Negative); HEPATITIS C VIRUS ANTIBODY Non Reactive (Non Reactive)
[2024-09-13 05:42] LABS: BASOPHILS # (AUTO) 0.1 X10'3 (0-0.2); BASOPHILS % (AUTO) 1.1 % (0-1); EOSINOPHILS # (AUTO) 0.1 X10'3 (0-0.9); EOSINOPHILS % (AUTO) 2.2 % (0-6); HEMATOCRIT 44.1 % (35.0-45.0); HEMOGLOBIN 14.9 g/dl (12.0-16.0); LYMPHOCYTES # (AUTO) 1.8 X10'3 (1.1-4.8); LYMPHOCYTES % (AUTO) 30.6 % (21-51); MEAN CORPUSCULAR HEMOGLOBIN 30.5 PG (27.0-31.0); MEAN CORPUSCULAR HGB CONC 33.8 g/dL (33.0-36.5); MEAN CORPUSCULAR VOLUME 90.2 FL (78-98); MONOCYTES # (AUTO) 0.6 X10'3 (0-0.9); MONOCYTES % (AUTO) 10.1 % (2-12); NEUTROPHILS # (AUTO) 3.2 X10'3 (1.8-7.7); PLATELET COUNT 243 X10'3 (140-440); RED BLOOD COUNT 4.89 X10'6 (4.20-5.60); RED CELL DISTRIBUTION WIDTH 15.8 % (11.5-14.5); WHITE BLOOD COUNT 5.8 X10'3 (4.5-11.0)
[2024-09-13 06:00] LABS: ALANINE AMINOTRANSFERASE 44 U/L (12-78); ALBUMIN 3.2 G/DL (3.4-5.0); ALBUMIN/GLOBULIN RATIO 0.8 (1.1-1.5); ALKALINE PHOSPHATASE 249 IU/L (46-116); ANION GAP 11 (8-16); ASPARTATE AMINO TRANSFERASE 45 U/L (10-37); BILIRUBIN,TOTAL 3.7 MG/DL (0.1-1.0); BLOOD UREA NITROGEN 21 MG/DL (7-18); BUN/CREATININE RATIO 18.1 (10.0-20.0); CALCIUM 8.4 MG/DL (8.5-10.1); CHLORIDE 99 MMOL/L (99-107); CREATININE 1.16 MG/DL (0.40-0.90); GLUCOSE 98 MG/DL (70-104); MAGNESIUM 1.8 MG/DL (1.5-2.4); SODIUM 137 MMOL/L (135-145); TOTAL CARBON DIOXIDE 26.8 MMOL/L (24-32); TOTAL PROTEIN 7.1 G/DL (6.4-8.2); eCRCL 68 ML/MIN; eGFR 52 ML/MIN
[2024-09-13 08:20] LABS: PRO BRAIN NATRIURETIC PEPTIDE 1464 PG/ML (0-125)
--- NOTE | 2024-09-13 08:51 | RADIOLOGY REPORT ---
CLINICAL INFORMATION: Elevated troponins. TECHNIQUE: 7.9 mCi of technetium 99m sestamibi was infused at rest. Rest SPECT imaging was obtained. The patient refused the stress portion of the exam. Only rest images were obtained. COMPARISON: None FINDINGS: Rest images demonstrate no perfusion defect in the argueta of the left ventricle. No stress imaging was performed. IMPRESSION: Incomplete examination. The patient refused the stress portion of the examination. No perfusion defe ct identified on rest images.
[2024-09-13] MEDS ORDERED: METR-159 PO (10:49)
[2024-09-13] MEDS ORDERED: LACT1CAP26 PO (10:49)
[2024-09-13 12:31] LABS: C-REACTIVE PROTEIN 2.15 MG/DL (0.0-0.5)
[2024-09-13] MEDS: regadenoson 0.4mg/5ml syringe IV ONE (13:13)
[2024-09-13] MEDS: VANCOMYCIN LEVEL IV ONE ×2 (13:30→15:04)
--- NOTE | 2024-09-13 15:26 | RADIOLOGY REPORT ---
Procedure: [facility] SCAN Exam Date: 09/13/2024 12:31 PM Reason for study/Clinical History: TROPONINEMIA Comparison Study: [facility] SCAN on DOS: 09/12/24 Myocardial Perfusion Study with SPECT Technique: The patient received an intravenous injection of 7.9 mCi of technetium-99m sestamibi whil e at rest. After a short delay, SPECT tomographic images of the heart were obtained. The patient th en went to the stress lab where they received an intravenous infusion of 0.[address] andard protocol. 32 mCi of technetium-99m sestamibi was injected intravenously immediately after th e start of the lexiscan infusion. Gated SPECT tomographic images of the heart were acquired and proc essed. Findings: Global dyskinesia. Reversible defects of the septum, anterior argueta End diastolic volume: 56 mL End systolic volume: 26 mL The left ventricular ejection fraction is 54 %. (normal greater than 50%) Impression: Reversible defects of the septum, anterior argueta. Global dyskinesis The left ventricular ejection fraction is 54 %.
--- NOTE | 2024-09-13 17:50 | CONSULTATION REPORT ---
Cardiac Consultation Report Providers to CC ~ Subjective Subjective Cardiology consultation: Abnormal echocardiogram abnormal nuclear scan minimal troponin rise. Exertional shortness of breath and chest pain. Patient is sleeping peacefully on my arrival. Comfortable. By her history she has known severe pulmonary hypertension when she was hospitalized in in the [facility] 18 months ago or so. At that time she was discharged on diuretics and Viagra therapy. She has known right-sided heart failure. She has not been receiving her medications due to social dislocation without a home and living on the streets with multiple visits to different hospitals and emergency rooms for a variety of issues. She had a stable living environment she states she would take her medications. She states she can not get them in her situation. Unfortunately she also is a chronic methamphetamine user. In used prior to this hospitalization. Day prior to this particular hospitalization here she would [facility] where she was treated with diuretics and given antibiotics for vaginal discharge. Presently she is on multiple intravenous at antibiotics furosemide and potassium. There is a history of bipolar disorder however no medications. Once again perhaps for her homeless situation. Objective Vitals Vital Signs Date Time Temp Pulse Resp B/P (MAP) Pulse Ox O2 Delivery O2 Flow Rate FiO2 09/13/24 15:20 98.1 79 16 116/85 (95) 97 Nasal Cannula 2.0 Lab Results: 09/13/24 0502 09/13/24 0502 Objective Neck veins V wave noted at 45. Lungs are clear. Grade 1 systolic murmur left sternal border. Apical S3 present. Abdomen right upper quadrant tenderness bowel sounds present. Pulses plus two upper and lower extremities minimal lower extremity edema with chronic venous stasis skin changes. She is presently pleasant and cooperative Coagulation Studies Laboratory Tests Test 09/11/24 23:25 D-Dimer 11.61 MG/L FEU (0-0.50) H D-Dimer Comment Other Results Echocardiogram is reviewed right ventricle is nearly 3 times the size of the left ventricle massive right atrial enlargement. His apical dyskinetic motion with normal left ventricular contractility otherwise right ventricular ejection fraction is 30% or less. Left ventricular ejection fraction approximately 40 45%. Estimated pulmonary artery pressure is close to 80 mm Hg. Nuclear stress test once again shows a massive right ventricle hypokinetic with dyskinesis of the apical portion and partially anterior portion of the myocardium. During stress there is septal anterior reversible ischemia. The patient did not have any symptoms. EKG changes are chronic right bundle branch block with diffuse nonspecific ST-T changes. Troponin is 0.546. Problem\Assessment\Plan Additional Plan Impression 1. Severe pulmonary hypertension with massive right ventricle right atrium compressing the left ventricle with dyskinetic septal and apical motion present both on the echocardiogram and on the nuclear scan. Pulmonary hypertension previously treated at [facility] with diuretics and Viagra treatment. Usual dose 25 mg 3 times daily as tolerated. 2. Nuclear scan echocardiogram abnormal secondary to severe pulmonary hypertension. No need for diagnostic heart catheterization. Recommendation; hopefully the patient care managers can get her to a safe environment where she will be able to take her medications. Prognosis poor due to methamphetamine abuse and social circumstances. ALVINA GUILLEN MD Sep 13, 2024 17:50
[2024-09-13] MEDS ORDERED: nitroGLYCERIN 0.4mg SUBLingual tab SL PRN (18:35)
--- NOTE | 2024-09-13 18:39 | PROGRESS NOTE- Residence ---
Progress Note - Resident Providers to CC Resident Creating Document: REZA BE, RES ~ Antibiotic Timeout Antibiotic Ordered?: Yes Subjective The patient has been evaluated at the bedside. The patient currently denies abdominal pain, chest pain, still endorses greenish secretion from genital area. Objective Vital Signs Date Time Temp Pulse Resp B/P (MAP) Pulse Ox O2 Delivery O2 Flow Rate FiO2 09/13/24 15:20 98.1 79 16 116/85 (95) 97 Nasal Cannula 2.0 Physical exam: General: Well alert, well oriented, not confused, not agitated, not in acute distress, well cooperated during the physical. HEENT: Conjunctive are pink, sclerae clear, icteric, pupil is equal in both sides, reactive to light, no ear discharge, no pharyngeal erythema or an edema. Neck: Supple, no JVD, no lymphadenopathy and thyromegaly. Chest: Equal air entry on both lungs, no additional sounds no rhonchi no wheezing at the moment. Cardiovascular: S1-S2 regular sinus rhythm and, regular rate, systolic murmur best heard in the mitral area. Abdomen: No visible peristalsis, Bowel sounds present on auscultation, soft, nontender, no guarding, no rigidity Extremities: No obvious deformities, 3+ pedal edema, capillary refill intact, peripheral pulsations are intact on both sides, presence of cross in the right lower extremity as per patient from shaving. Genital examination performed by attending accompanied by nurse: No evidenced discharged in urinary tract infection. Central Nervous System: No focal neurological deficits, no motor or sensory weakness in all 4 extremities, could move all 4 extremities, 2+ deep tendon reflexes, negative Babinski. Musculoskeletal: No joint swelling, deformities, inflammations, and no scoliosis and back tenderness Skin: Warm and dry. Result Diagram: 09/13/24 0502 09/13/24 0502 Coagulation Studies Laboratory Tests Test 09/11/24 23:25 D-Dimer 11.61 MG/L FEU (0-0.50) H D-Dimer Comment Assessment Assessment 39-year-old female patient admitted with multiple medical comorbidities, presented to the emergency department with chief complaint of greenish vaginal secretion. Plan Plan Acute exacerbation of diastolic congestive heart failure: Cor pulmonale: Right ventricular heart failure: Endocarditis-rule out: Anasarca: The patient states that she has been experienced bilateral lower extremity swelling. Echocardiogram: Impression: LVEF 65-70%, RVSP 79 mmHg. No evidence of vegetations. CT abdomen pelvis at [facility]: Mesenteric edema, periportal edema, pericholecystic edema, perinephric edema, IVC distention. These findings could be secondary to fluid /volume overload, septicemia, heart failure, infectious and inflammatory processes. Correlate clinically. Small moderate ascites fluid which extends to the pelvis. Soft tissue edema / anasarca. Mesenteric, retroperitoneal lymph nodes up to 1 cm with differential considerations including reactive etiologies, infection/inflammatory processes, malignancy. Bowel wall edema and thickening of the ascending and transverse colon which can be secondary to portal hypertension related enteropathy, inflammatory bowel disease, colitis. ProBNP: 2387. Lasix 40 mg IV b.i.d. Strict Is&Os Daily weights 1.5 L fluid restriction. 09/13/2024: Lasix 40 mg IV daily. Strict I&Os, daily weights, 1.5 L fluid restriction. NSTEMI: EKG: Normal sinus rhythm Troponin levels [phone] Echocardiogram: Impression: LVEF 65-70%, RVSP 79 mmHg. No evidence of vegetations. 09/13/2024: Lexiscan: Reversible defects of the septum, anterior argueta. Global dyskinesis. The left ventricular ejection fraction is 54 %. Cardiology, Dr. Amador consulted. Recommends medical management. Aspirin 81 mg daily. Atorvastatin 40 mg daily. Metoprolol 25 mg daily. Nitroglycerin 0.4 mg SL as needed. Vaginal pus discharge: Possible chlamydia vs Trichomona infection versus gonorrhea: No sepsis criteria: The patient states greenish vaginal secretion Follow up with chlamydia and Neisseria serologies On ceftriaxone 1 g daily. On metronidazole 500 mg b.i.d. Culturelle 10339 mmu b.i.d. 09/13/2024: Pelvic examination performed by attending doctor (Dr. Miguel) accompanied by charge nurse at the bedside. No evidence of purulent secretion, no tenderness of pelvic area or cervix. Continue ceftriaxone 1 g daily. Metronidazole 500 mg b.i.d. Prerenal TRISTIAN probably secondary to renal tubular stasis: Elevated BUN and creatinine. Follow-up urine lytes. Continue to monitor BMP 09/13/2024: Fractional excretion of sodium: 0.4%, indicating prerenal TRISTIAN. Bilateral lower extremity edema DVT-ruled out: Pulmonary embolism-ruled out: Vascular ultrasound: No deep venous thrombosis in the bilateral lower extremities. Arterial Doppler ultrasound: There is no significant focal stenosis identified in the right or left lower extremity. D-dimer 11.61. CTA of the chest: no pulmonary embolism is identified. Some of the distal pulmonary arteries cannot be evaluated due to suboptimal opacification. Suggestion of pulmonary hypertension. Possible acute cholecystitis-ruled out: Portal venous thrombosis, ruled out Ultrasound abdomen: Gallbladder wall thickening with sludge with trace pericholecystic fluid without distension. Findings are equivocal for cholecystitis. If there is clinical concern consider HIDA scan. 2. 5 mm cholesterol gallbladder polyp, given size no definite follow-up needed. CT abdomen pelvis at outside hospital: Mesenteric edema, body wall edema, hepatitis or cirrhosis can not be excluded CT abdomen pelvis at [facility]: Mesenteric edema, periportal edema, pericholecystic edema, perinephric edema, IVC distention. These findings could be secondary to fluid /volume overload, septicemia, heart failure, infectious and inflammatory processes. Correlate clinically. Small moderate ascites fluid which extends to the pelvis. Soft tissue edema / anasarca. Mesenteric, retroperitoneal lymph nodes up to 1 cm with differential considerations including reactive etiologies, infection/inflammatory processes, malignancy. Bowel wall edema and thickening of the ascending and transverse colon which can be secondary to portal hypertension related enteropathy, inflammatory bowel disease, colitis. Ultrasound: Patent main portal vein with appropriately directed flow. IV Zofran 4 mg p.r.n. Pain management HIDA SCAN: No evidence of cystic duct obstruction. 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 Losartan 50 mg Diabetes mellitus type 2 A1c: 6.7 Hyper/hypoglycemia protocol in place. Low-dose short-acting insulin. Code status: Full code DVT prophylaxis: Heparin Analgesia/sedation: Morphine Line/tube: PIV GI prophylaxis: None Nutrition: 75 carb controlled diet PT: Ordered Prognosis: Guarded Disposition: We will continue medical management. Anticipated discharge tomorrow. Reza Coyle Internal Medicine Resident [facility] Date of Service: Sep 13, 2024 Billing Provider: LEVAR MIGUEL MD, FRANCO LUIS, RES Sep 13, 2024 18:39
[2024-09-13] MEDS: diphenhydrAMINE 25mg capsule PO PRN (19:55)
[2024-09-13] MEDS: LORazepam 1 MG tablet PO ONE (22:05)
[2024-09-14 00:41] VITALS: O2SAT 93
[2024-09-14 02:00] VITALS: BP 128/78; PULSE 86; RESP 16; TEMP 97.6; O2SAT 93
[2024-09-14 05:13] LABS: CHLAMYDIA TRACHOMATIS, NAA Negative (Negative)
[2024-09-14 06:00] VITALS: BP 136/92; PULSE 80; RESP 16; TEMP 97.7; O2SAT 95
[2024-09-14 06:41] LABS: BASOPHILS % (AUTO) 0.8 % (0-1); EOSINOPHILS # (AUTO) 0.2 X10'3 (0-0.9); EOSINOPHILS % (AUTO) 3.8 % (0-6); HEMATOCRIT 44.8 % (35.0-45.0); HEMOGLOBIN 14.8 g/dl (12.0-16.0); LYMPHOCYTES # (AUTO) 1.2 X10'3 (1.1-4.8); LYMPHOCYTES % (AUTO) 24.1 % (21-51); MEAN CORPUSCULAR HEMOGLOBIN 30.1 PG (27.0-31.0); MEAN CORPUSCULAR HGB CONC 33.1 g/dL (33.0-36.5); MEAN CORPUSCULAR VOLUME 90.7 FL (78-98); MEAN PLATELET VOLUME 7.5 FL (7.4-10.4); MONOCYTES # (AUTO) 0.6 X10'3 (0-0.9); NEUTROPHILS # (AUTO) 3.1 X10'3 (1.8-7.7); NEUTROPHILS % (AUTO) 60.3 % (42-75); PLATELET COUNT 216 X10'3 (140-440); RED BLOOD COUNT 4.94 X10'6 (4.20-5.60); RED CELL DISTRIBUTION WIDTH 15.4 % (11.5-14.5); WHITE BLOOD COUNT 5.1 X10'3 (4.5-11.0)
[2024-09-14 06:51] LABS: ALANINE AMINOTRANSFERASE 40 U/L (12-78); ALBUMIN/GLOBULIN RATIO 0.7 (1.1-1.5); ALKALINE PHOSPHATASE 240 IU/L (46-116); ANION GAP 9 (8-16); ASPARTATE AMINO TRANSFERASE 42 U/L (10-37); BILIRUBIN,TOTAL 2.7 MG/DL (0.1-1.0); BLOOD UREA NITROGEN 17 MG/DL (7-18); BUN/CREATININE RATIO 15.7 (10.0-20.0); CALCIUM 8.7 MG/DL (8.5-10.1); CHLORIDE 102 MMOL/L (99-107); CREATININE 1.08 MG/DL (0.40-0.90); GLUCOSE 85 MG/DL (70-104); MAGNESIUM 1.9 MG/DL (1.5-2.4); POTASSIUM 3.7 MMOL/L (3.5-5.1); SODIUM 141 MMOL/L (135-145); TOTAL CARBON DIOXIDE 30.5 MMOL/L (24-32); TOTAL PROTEIN 7.1 G/DL (6.4-8.2); eCRCL 73 ML/MIN; eGFR 56 ML/MIN
[2024-09-14 08:30] VITALS: RESP 16; O2SAT 93; O2SAT 94
[2024-09-14] MEDS: atorvastatin 20mg tablet PO SCH (08:37)
[2024-09-14] MEDS: aspirin 81mg, enteric-coated 1 TAB TABLET.DR PO SCH (08:39)
[2024-09-14] MEDS: metoprolol succinate 25mg (24-HOUR) SR. Tablet PO SCH (08:39)
[2024-09-14] MEDS ORDERED: EMPA10TA PO (10:15)
[2024-09-14] MEDS ORDERED: METR-159 PO (10:15)
[2024-09-14] MEDS ORDERED: METO-395 PO (10:17)
[2024-09-14] MEDS ORDERED: ASPI-1265 PO (10:17)
[2024-09-14] MEDS ORDERED: ATOR20TA66 PO (10:17)
[2024-09-14 10:49] VITALS: BP 114/72; PULSE 75; RESP 17; TEMP 97.4; O2SAT 94
--- NOTE | 2024-09-14 15:18 | DISCHARGE SUMMARY-Residence ---
Discharge Summary Providers to CC Resident Creating Document: TANYA LOZADADON, RES ~ Discharge Summary Admission Diagnosis: ACUTE CHOLECYSTITIS Hospital Course DATE OF ADMISSION: 09/11/2024 DATE OF DISCHARGE: 09/14/2024 Discharge Diagnosis\Comment: Acute exacerbation of diastolic congestive heart failure Cor pulmonale Right ventricular heart failur Endocarditis-rule out Anasarca NSTEMI Vaginal pus discharge Possible chlamydia vs Trichomona infection versus gonorrhea No sepsis criteria Vaginal pus discharge Possible chlamydia vs Trichomona infection versus gonorrhea No sepsis criteria Bilateral lower extremity edema DVT-ruled out Pulmonary embolism-ruled out Possible acute cholecystitis-ruled out Portal venous thrombosis-ruled out Operations\Procedures: Jong Consultants: Fern Cutter Complications: None Condition on DC: Stable New Medications: Aspirin (Aspirin) 81 Mg Tab.chew 1 TAB PO DAILY for 30 Days, #30 TAB.CHEW Atorvastatin Calcium (Atorvastatin Calcium) 20 Mg Tablet 20 MG PO DAILY for 30 Days, #30 TAB Empagliflozin (Jardiance) 10 Mg Tablet 1 TAB PO DAILY for 30 Days, #30 TAB 0 Refills Lactobacillus Rhamnosus (Culturelle) 10 Billion Cell Capsule 1 CAP PO BID for 30 Days, #60 CAP 0 Refills Metoprolol Succinate (Metoprolol Succinate) 25 Mg Tab.sr.24h 1 TAB PO DAILY for 30 Days, #30 TAB 0 Refills Metronidazole* (Flagyl*) 500 Mg Tablet 1 TAB PO Q12H for 5 Days, #10 TAB Continued Medications: Furosemide* (Lasix*) 20 Mg Tablet 20 TAB PO DAILY for 30 Days, #30 TAB Discharge Summary: HPI: A 39-year-old female who is homeless with multiple medical comorbidities presented to the ED with presenting complaints of retaining fluids, worsening edema, vaginal pus discharge and fever with chills. Patient states that she has been swelling up with increasing abdominal girth, pedal edema for the last one and half weeks. Patient also states that she had fever associated with chills with the maximum of 100.3 noted on her vomitus. Patient endorses epigastric and lower abdominal pain with no radiation with a severity of 5/10, burning/sharp in character associated with nausea and vomitings mostly dry heaving but has vomitings episodes with mostly saliva. Patient also describes that her pain worsens after eating. Patient is supposed to use 2-3 L of oxygen at home but has never used as she is homeless. Patient also states that she has substernal chest pain which is pressure-like with a severity of 7/10 with radiation to the left arm neck and ear that has been constant associated with shortness of breaths and present mostly on exertion but relieved with nitroglycerin. She has been having this chest pain for quite a bit of time that she has been neglecting. Patient states that she has shortness of breaths and can not walk more than 15 ft, Patient endorses orthopnea, PND, palpitations. test in [facility] has been negative. Additionally patient states that she has not had her periods for the last four months and she is sexually active. Hospital course: 39-year-old female patient admitted with multiple complaints. Mainly due to vaginal secretion stated as green colored. Further work out because of abdominal pain and chest pain was performed. Troponin levels were elevated around 500, Lexiscan was obtained which showed reversible defects of the septum, anterior argueta. Global dyskinesis. Fern Cutter, Dr. Amador was consulted who recommends medical management. Due to the abdominal pain CT scan of the abdomen was obtained showing soft tissue edema/ anasarca likely related to right-sided heart failure, the patient was started on Lasix and GDMT. Upon the following day the patient reports improvement of abdominal distention and pain, acute cholecystitis was ruled out. Due to her vaginal discharge physical exam was performed by attending Dr. Miguel accompanied by charge nurse at the bedside without evidenced of purulent secretion or tenderness in pelvic area or cervix. Patient was started on treatment for STDs based on ceftriaxone and metronidazole. Results came back negative for gonorrhea and chlamydia trachomatis. The patient remained hemodynamically stable. The patient will be discharged home. Discharge course: The patient remained hemodynamically stable. The patient will be discharged with the following instructions: Call 911 or come back to the emergency department if severe chest pain, shortness of breath, palpitations, fever sensation, or severe abdominal pain is evidence. Take metronidazole 1 tablet of 500 mg every 12 hours for 5 days. Take metoprolol 1 tablet of 25 mg daily. Take atorvastatin 1 tablet of 20 mg daily. Take aspirin 1 tablet of 81 mg daily. Take jardiance 1 tablet of 10 mg daily. Take culturelle [place] [address] mmu every 12 hours. Follow up with your primary care physician within 2 weeks. Strong recommendation to stop methampethamines or any type of recreational drugs. Physical exam: General: Well alert, well oriented, not confused, not agitated, not in acute distress, well cooperated during the physical. HEENT: Conjunctive are pink, sclerae clear, icteric, pupil is equal in both sides, reactive to light, no ear discharge, no pharyngeal erythema or an edema. Neck: Supple, no JVD, no lymphadenopathy and thyromegaly. Chest: Equal air entry on both lungs, no additional sounds no rhonchi no wheezing at the moment. Cardiovascular: S1-S2 regular sinus rhythm and, regular rate, systolic murmur best heard in the mitral area. Abdomen: No visible peristalsis, Bowel sounds present on auscultation, soft, nontender, no guarding, no rigidity Extremities: No obvious deformities, 3+ pedal edema, capillary refill intact, peripheral pulsations are intact on both sides, presence of cross in the right lower extremity as per patient from shaving. Genital examination performed by attending accompanied by nurse: No evidenced discharged in urinary tract infection. Central Nervous System: No focal neurological deficits, no motor or sensory weakness in all 4 extremities, could move all 4 extremities, 2+ deep tendon reflexes, negative Babinski. Musculoskeletal: No joint swelling, deformities, inflammations, and no scoliosis and back tenderness Skin: Warm and dry. *Problems/Diagnosis: (1) TRISTIAN (acute kidney injury) Status: Acute (2) Cor pulmonale Status: Chronic (3) Right-sided heart failure Status: Chronic (4) Congestive heart failure Status: Acute (5) NSTEMI (non-ST elevated myocardial infarction) Status: Acute Total Time Spent on D/C: > 30 Minutes Date of Service: Sep 14, 2024 Billing Provider: SHOBHA CUEVA MD, FRANCO LUIS, RES Sep 14, 2024 15:17
[2024-09-15] MEDS ORDERED: FURO-150 PO (08:48)
== END 2024-09-14 11:39 | disposition home or self-care (01) | DRG 190 ==
LOC: ER 14:09 → ED HOLD 20:18 → EDBEDREQ 22:31 → PCU 3S 23:54
PROVIDERS: ADMIT Internal Medicine Pulmonary Disease; ATTEND Internal Medicine
PROC: BW211ZZ Computerized Tomography (CT Scan) of Abdomen and Pelvis using Low Osmolar Contrast (ICD-10-PCS; 2024-09-11)
PROC: 4A02XM4 Measurement of Cardiac Total Activity, External Approach (ICD-10-PCS; principal; 2024-09-12)
PROC: 3E033HZ Introduction of Radioactive Substance into Peripheral Vein, Percutaneous Approach (ICD-10-PCS; 2024-09-12)
PROC: B32T1ZZ Computerized Tomography (CT Scan) of Left Pulmonary Artery using Low Osmolar Contrast (ICD-10-PCS; 2024-09-12)
PROC: B3201ZZ Computerized Tomography (CT Scan) of Thoracic Aorta using Low Osmolar Contrast (ICD-10-PCS; 2024-09-12)
PROC: B32S1ZZ Computerized Tomography (CT Scan) of Right Pulmonary Artery using Low Osmolar Contrast (ICD-10-PCS; 2024-09-12)
PROC: CF141ZZ Planar Nuclear Medicine Imaging of Gallbladder using Technetium 99m (Tc-99m) (ICD-10-PCS; 2024-09-12)
PROC: 3E033HZ Introduction of Radioactive Substance into Peripheral Vein, Percutaneous Approach (ICD-10-PCS; 2024-09-13)
PROC: 4A02XM4 Measurement of Cardiac Total Activity, External Approach (ICD-10-PCS; 2024-09-13)
DX: I21.4 Non-ST elevation (NSTEMI) myocardial infarction (principal); I50.33 Acute on chronic diastolic (congestive) heart failure; N17.9 Acute kidney failure, unspecified; I27.81 Cor pulmonale (chronic); K81.9 Cholecystitis, unspecified; E11.9 Type 2 diabetes mellitus without complications; F15.90 Other stimulant use, unspecified, uncomplicated; F31.9 Bipolar disorder, unspecified; A64 Unspecified sexually transmitted disease; I11.0 Hypertensive heart disease with heart failure; Z59.00 Homelessness unspecified; Z88.0 Allergy status to penicillin; Z88.1 Allergy status to other antibiotic agents
CPT/HCPCS: 36415; 71045; 71275; 74177; 76700; 78227; 78451; 80053; 80061; 80305; 81001; 81003; 81025; 82570; 82948; 83036; 83605; 83690; 83735; 83880; 83930; 83935; 84145; 84156; 84300; 84484; 84540; 84702; 85025; 85379; 85651; 86140; 86705; 86709; 86803; 87040; 87081; 87207; 87340; 87491; 87522; 87591; 93005; 93017; 93306; 93925; 93970; 96365; 97116; 97161; 97530; 99285; A6250; A9500; A9537; G0378; J0696; J1644; J1815; J1938; J2185; J2405; J2785; J2805; J3370; J3372; J3490; J7040; Q0163; Q9967

== ENCOUNTER 2024-09-23 13:34 | Inpatient (IN) | payer MEDICAID ==
[~2024-09-23] VITALS: Ht 165.1 cm; Wt 90.0 kg
[~2024-09-23 13:34] MED LIST changes: +ASPI-1265 PO; +ATOR20TA66 PO; -CIPR-202 PO; -CLIN-214 PO; -CLIN-97 PO; -CYCL-1 PO; +EMPA10TA PO; +FURO-150 PO; -HYDR1TAB PO; -IBUP-1984 PO; -IBUP-1986 PO; +LACT1CAP26 PO; +METO-395 PO; +METR-159 PO; -ZOF4T PO
--- NOTE | 2024-09-23 13:40 | Physician Documentation ---
History of Present Illness ~ Chief Complaint: Extremity Swelling Stated Complaint: CHF Time Seen by MD: 13:39 Primary Medical Doctor: bette pond [facility] 39-year-old female just released from this hospital approximately 10 days ago presents per ambulance due to concerns for increasing shortness of breath, increasing abdominal girth, and increasing facial and peripheral edema. She reports that she has been out of her medications for the last three days due to inability to pay for them. Reportedly, her insurance has changed. She denies chills or fever. She denies dysuria. No chest pain. Known hx of methamphetamine-induced cardiomyopathy. Most recent echocardiogram 09/12/2024 showed severe dilatation of the right ventricle with ejection fraction 65-70% and RVSP 79 mmHg. Troponin 565 at last visit with BNP 1464. Reportedly "in a program" for meth use and currently sober. Tetanus witin 5 years: No Medication Reconciliation Allergies: Coded Allergies: amoxicillin (Unverified Allergy, Unknown, 09/23/24) Uncoded Allergies: PENICILLIN (Allergy, Intermediate, 05/02/17) RASH Scheduled Aspirin (Aspirin), 1 TAB PO DAILY Atorvastatin Calcium (Atorvastatin Calcium), 20 MG PO DAILY Empagliflozin (Jardiance), 1 TAB PO DAILY Furosemide* (Lasix*), 40 TAB PO DAILY Lactobacillus Rhamnosus (Culturelle), 1 CAP PO BID Metoprolol Succinate (Metoprolol Succinate), 1 TAB PO DAILY Metronidazole* (Flagyl*), 1 TAB PO Q12H Miscellaneous Medications [None], (Reported) Past Medical History Past Medical History: No Pertinent History, Bipolar Past Surgical History: no surgical history Alcohol Use: None Drug Use: methamphetamine Lives with: S/O Lives In: Home Occupation: employed Review of Systems ROS As stated above in the HPI, otherwise all systems are reviewed and negative. Physical Exam Vital Signs: Temperature: 98.0, Source: Oral, Heart Rate: 84, Respiratory Rate: 20, BP: 182/128, Pulse Oximetry: 96, Weight: 90.000 Oxygen Flow Rate: 0 Physical Exam General: Alert, no apparent distress. Neck: Full range of motion. Respiratory: Lungs clear, no respiratory distress. Dim bases. Chest: No accessory muscle use. Cardiovascular: Regular rate and rhythm, no murmurs. Gastrointestinal: Soft, nontender, mildly distended. Bowels sounds present. Extremities: Normal range of motion, no deformity. Neurologic: Oriented x4. Psychiatric: Normal mood and affect. Skin: Normal color, warm and dry. Facial edema, including tuan-orbital. 2+ edema hands and feet. Progress Results/Orders Results/Orders Orders - DOTTY JAMA SCHEDULE CLERK Vice President Regulatory (09/23/24 14:19) Page Hospitalist (09/23/24 15:11) Completed Orders - DOTTY JAMA SCHEDULE CLERK Liver Panel (09/23/24 13:40) Furosemide 40mg Inj (Lasix Inj) (09/23/24 13:55) Furosemide 40mg Inj (Lasix Inj) (09/23/24 13:55) Aspirin 81mg Chew Tablet (Aspirin 81mg C (09/23/24 14:55) Medications Received in ER Medications (Trade) Dose Ordered Sig/Sydnee Route PRN Reason Start Time Stop Time Status Last Admin Dose Admin (Lasix inj) 40 mg NOW ONCE IV 09/23/24 13:55 09/23/24 13:56 DC 09/23/24 14:26 40 MG (aspirin 81MG chew tablet) 81 mg ONCE ONCE PO 09/23/24 14:55 09/23/24 14:56 DC 09/23/24 15:11 81 MG Vital Signs 09/23/24 13:35 Temp 98.0 Pulse 84 Resp 20 B/P (MAP) 182/128 Pulse Ox 96 O2 Flow Rate 0 Laboratory Tests Test 09/23/24 14:07 White Blood Count 5.6 Red Blood Count 5.10 Hemoglobin 15.3 Hematocrit 46.1 H Mean Corpuscular Volume 90.2 Mean Corpuscular Hemoglobin 29.9 Mean Corpuscular Hemoglobin Concent 33.2 Red Cell Distribution Width 15.4 H Platelet Count 237 Mean Platelet Volume 7.3 L Neutrophils (%) (Auto) 68.6 Lymphocytes (%) (Auto) 19.2 L Monocytes (%) (Auto) 8.9 Eosinophils (%) (Auto) 2.1 Basophils (%) (Auto) 1.2 H Neutrophils # (Auto) 3.8 Lymphocytes # (Auto) 1.1 Monocytes # (Auto) 0.5 Eosinophils # (Auto) 0.1 Basophils # (Auto) 0.1 CBC Comment Sodium Level 136 Potassium Level 4.3 Chloride Level 104 Carbon Dioxide Level 23.9 L Anion Gap 8 Blood Urea Nitrogen 18 Creatinine 0.88 Estimated GFR/1.73 m2 72 BUN/Creatinine Ratio 20.5 H Glucose Level 94 Calcium Level 9.0 Total Bilirubin 3.9 H Direct Bilirubin 0.7 H Aspartate Amino Transf (AST/SGOT) 50 H Alanine Aminotransferase (ALT/SGPT) 48 Alkaline Phosphatase 241 H Troponin I High Sensitivity 434 *H Pro-B-Type Natriuretic Peptide 2844 H Total Protein 7.3 Albumin 3.3 L Globulin 4.0 Albumin/Globulin Ratio 0.8 L Chemistry Comments EKG/XRAY/CT/US/VASC/MRI EKG : Additional Comment Interpreted to show RSR rate of 83. No ectopy. No ST segment elevation. Incom plete RBBB. QTC 430 ms. Chest X-Ray : Additional Comments [place] [address] DIAGNOSTIC RADIOLOGY Patient: ALDAIR ESCALERA Medical Record: [id number] [facility] : 1985, Age: 39 Sex: Female Location: ER Patient Status: [facility] ER Service Date/Time: 09/23/24/ 1351 Ordering Physician: IBRAHIMA STARK DO Exam: CHEST,SINGLE VIEW AP portable chest CLINICAL INDICATION: CP Comparison: 09/11/2024 FINDINGS: Heart size is enlarged. No infiltrates or effusions. IMPRESSION: 1. No acute cardiopulmonary pathology compared to prior study Electronically Signed by:LISA ENGLAND MD Date & Time: 09/23/241401 Dictated by: LISA ENGLAND MD Dictation date and time: 09/23/241401 Primary Care Provider: NO PRIMARY CARE PROVIDER cc: IBRAHIMA STARK DO ~ Medical Decision Making Additional Comment This is a 39-year-old female with a significant history of methamphetamine induced cardiomyopathy. She was just released from this hospital approximately 10 days ago for multitude of complaints that included fluid volume overload. At that time, she was found to have a echocardiogram that demonstrated a normal ejection fraction, but markedly elevated right ventricular systolic pressure. She notes that she is currently in a program for methamphetamine dependence, and is sober. She has evidently been out of her medications for three days, and presented due to worsening of her shortness of breath and significant edema to the face and extremities. Her troponin today is again elevated, but not as high as at previous visit. Her chest x-ray does not show evidence of fluid volume overload. EKG without acute changes. Heart score 2. The patient was given furosemide 40 mg IV in the ER. She was then considered appropriate for admission due to her multiple comorbidities and high risk for worsening of her symptoms without access to her medications. NILAM Stark was consulted regardi ng this patient's presentation, hx, symptoms, and affirmed her need to be admitted for further care. Departure Time of Disposition: 15:23 Disposition: 09 ADMITTED INPATIENT Admitted to Inpatient Unit: yes, to hospitalist Impression: Primary Impression: NSTEMI (non-ST elevated myocardial infarction) Additional Impressions: Congestive heart failure Edema of lower extremity Referrals: NO PRIMARY CARE PROVIDER (PCP) Signature Scribe Signature: no scribe Attestation: The note accurately reflects work and decisions made by me.Dotty Freeman NP 09/23/24 13:50 DOTTY JAMA NP Sep 23, 2024 13:40
--- NOTE | 2024-09-23 13:42 | ELECTROCARDIOGRAPH REPORT ---
[facility] Test Date: 2024-09-23 Test Time: 13:40:05 Pat Name: ALDAIR ESCALERA Department: [facility] Patient ID: [facility]-[id number] Room: [place] [address] Gender: F F[employer] Builder: : 1985 Requested By: IBRAHIMA JOHNS Order Number: [id number] Reading MD: Dr. Jose E Horvath Measurements Intervals [place] Rate: 83 P: 77 [place]: 173 QRS: 100 QRSD: 113 T: 47 QT: 430 QTc: 506 Interpretive Statements Sinus rhythm Biatrial enlargement Incomplete right bundle branch block Anteroseptal infarct, age indeterminate Electronically Signed On 09-23-2024 18:13:[address] Jose E Horvath Please click the below link to view image of tracing.
--- NOTE | 2024-09-23 14:04 | RADIOLOGY REPORT ---
AP portable chest CLINICAL INDICATION: CP Comparison: 09/11/2024 FINDINGS: Heart size is enlarged. No infiltrates or effusions. IMPRESSION: 1. No acute cardiopulmonary pathology compared to prior study
[2024-09-23 14:20] LABS: MEAN PLATELET VOLUME 7.3 FL (7.4-10.4); RED CELL DISTRIBUTION WIDTH 15.4 % (11.5-14.5)
[2024-09-23 14:42] LABS: CREATININE 0.88 MG/DL (0.40-0.90); TOTAL CARBON DIOXIDE 23.9 MMOL/L (24-32); eCRCL 77 ML/MIN; eGFR 72 ML/MIN
[2024-09-23 14:44] LABS: PRO BRAIN NATRIURETIC PEPTIDE 2844 PG/ML (0-125)
[2024-09-23] MEDS ORDERED: mag hydrox/Alum hydrox/simeth 30ml oral suspension PO PRN (16:00)
[2024-09-23] MEDS ORDERED: magnesium sulf-water 4G/100mL 100 ML IV PRN (16:00)
[2024-09-23] MEDS ORDERED: magnesium sulf-water 2g/50mL 50 ML IV PRN (16:00)
[2024-09-23] MEDS ORDERED: ondansetron/PF 4mg/2ml inj IV PRN (16:00)
[2024-09-23] MEDS ORDERED: magnesium hydroxide 30ml (MOM) UD suspension PO PRN (16:00)
[2024-09-23] MEDS ORDERED: magnesium Cl slow-release 64mg tablet PO PRN (16:00)
[2024-09-23] MEDS ORDERED: potassium Cl 20 mEq SR tablet PO PRN ×2 (16:00)
[2024-09-23] MEDS ORDERED: potassium Cl 40MEQ/1/2NS 520ml 520 ML IV PRN (16:00)
--- NOTE | 2024-09-23 16:18 | HISTORY AND PHYSICAL-Residence ---
History & Physical Providers to CC Resident Creating Document: TEOFILO WINSTON CC: ILANA POLLOCK MD ~ History of Present Illness Primary Medical Doctor: bette pond Reason for Admit\Complaint: Shortness of breath History of Present Illness Patient is a 39-year-old female with medical history of heart failure with preserved ejection fraction, pulmonary hypertension, type 2 diabetes, hypertension, chronic respiratory failure and substance abuse who came to the ED due to increasing shortness of breaths and edema. Patient was discharged from our hospital about 9 days ago, at that time she was admitted with acute on chronic heart failure and she was discharged on GDMT. Patient reports that due to insurance problems she was not able to get any of her medications, therefore, she has been off of them since discharged. She states that about 2 days ago she presented with increasing facial and abdominal edema, as well as increasing shortness of breath on exertion, orthopnea and PND. She is supposed to be on 2- 4 L of oxygen, but she also has not been able to get her oxygen tank. She denies significant lower extremity edema. She does report that she has been experiencing intermittent chest pain/pressure, which lasts sec at a time, stabbing, with a episodes every 45 minutes to 1 hour, left-sided, radiating to the neck/jaw, 7/10 of intensity. Patient does not have a PCP or price economist at this time as she starting to resolve her insurance situation. She is also living in a sober living facility for her methamphetamine use disorder. Allergies: Coded Allergies: amoxicillin (Unverified Allergy, Unknown, 09/23/24) Uncoded Allergies: PENICILLIN (Allergy, Intermediate, 05/02/17) RASH Home Medications Home Medications Active Lasix* (Furosemide) 20 Mg Tablet 40 Tab PO DAILY 30 Days Atorvastatin Calcium 20 Mg Tablet 20 Mg PO DAILY 30 Days Aspirin 81 Mg Tab.chew 1 Tab PO DAILY 30 Days Metoprolol Succinate 25 Mg Tab.sr.24h 1 Tab PO DAILY 30 Days Jardiance (Empagliflozin) 10 Mg Tablet 1 Tab PO DAILY 30 Days Flagyl* (Metronidazole) 500 Mg Tablet 1 Tab PO Q12H 5 Days Culturelle (Lactobacillus Rhamnosus) 10 Billion Cell Capsule 1 Cap PO BID 30 Days Reported [None] Past Medical History Past Medical History Heart failure with preserved ejection fraction, pulmonary hypertension, type 2 diabetes, hypertension, chronic respiratory failure and substance abuse Past Surgical History Surgical History Comment None Family History Family History: FH: heart disease FATHER Past Social History Smoking: Cigarettes (Currently smokes 1 or 2 cigarettes a day. Used to smoke up to 2 packs a day. Smoking since age 12) Alcohol Use: Sober (She has been sober for the past 5 years. Used to drink 1 bottle of rum or 30 beers a day) Drug Use: Methamphetamine Lives with: Other Lives In: Other (Sober living facility) Occupation: unemployed ROS ROS All systems were reviewed except for pertinent positives mentioned in HPI Exam Vitals: Vital Signs Date Time Temp Pulse Resp B/P (MAP) Pulse Ox O2 Delivery O2 Flow Rate FiO2 09/23/24 13:35 98.0 84 20 182/128 96 0 General: General: awake, alert oriented to place, time, and person HEENT: Marked periorbital edema. Nasal cannula in place. No pallor present, no icterus, moist mucous membranes Neck: No masses and tenderness Resp: Unlabored. Lungs clear to auscultation bilaterally. Chest: Normal expansion. Some tenderness to palpation on left hemithorax Cardiovascular: Regular Rate and rhythm, normal S1 and S2 without murmur, rub or gallop Abdomen: Soft and nontender, no organomegaly, no guarding and rigidity, bowel sounds present Neuro: No focal weakness in the upper and lower limb muscles, power of the muscles 5/5 bilateral upper and lower extremities, normal reflexes bilaterally. Cranial nerves intact Extremities: Trace lower extremity edema. No cyanosis or clubbing Skin: Warm and Dry. No lesions Psych: Normal affect Diagnostic Data Last Recorded Lab Results: 09/23/24 1407 09/23/24 1407 Advance Care Planning Advanced Care plannin - 30 Minutes Additional Plan Patient is a 39-year-old female with medical history of heart failure with preserved ejection fraction, pulmonary hypertension, type 2 diabetes, hypertension, chronic respiratory failure and substance abuse who came to the ED due to increasing shortness of breaths and edema. Admitted for evaluation and management of acute on chronic heart failure with preserved ejection fraction and pulmonary hypertension. Acute on chronic HFpEF Acute on chronic respiratory failure Pulmonary hypertension/cor pulmonale Generalized edema Chest pain, atypical CAD with positive stress test Methamphetamine induced cardiomyopathy Hypertension/hypertensive urgency, improving Noncompliance Patient with known history of meth induced cardiomyopathy Echocardiogram 10 days ago showed: LVEF is 65-70%. Right ventricle is severely dilated. Elevated with herat pressures with an RVSP of 79 mmHg Stress test last visit was also positive for reversible ischemia. Not cardiac catheterization recommended at that time by Dr. Amador Chest x-ray today is unremarkable DVT/PE were ruled out last visit on CTA and vascular ultrasound ProBNP 2844, increased from 1464 on last discharge Troponins are close to her baseline. 434, 503 today Resume metoprolol 25 mg daily, Jardiance 10 mg daily, baby aspirin, atorvastatin 20 mg daily Will add lisinopril Received 80 mg of Lasix in ED. Will continue 40 mg daily Strict I's and O's and daily weights Type 2 diabetes A1c was 6.7 on last admission Will start Lantus 10 units, lispro 3 units, low-dose supplemental Substance abuse-methamphetamine Patient is currently living at a sober living facility Financial insecurity student services director consulted for possible assistance for medication coverage Code Status: Full code DVT prophylaxis: Lovenox Nutrition: carb controlled PT: Ordered Prognosis: Guarded Disposition: Admit to PCU with tele monitoring. Continue medical management Teofilo Welch MD Internal Medicine Resident PGY-1 Date of Service: Sep 23, 2024 Billing Provider: ILANA POLLOCK MD, LEONARDO LUIS Sep 23, 2024 16:18
[2024-09-23] MEDS ORDERED: DEXTROSE 15 GM of carb/4 tabs (each vial/BOTTLE has 4 tablets) PO PRN ×2 (17:05)
[2024-09-23] MEDS ORDERED: dextrose 50%-water 50ml dispensing syringe IV PRN ×2 (17:05)
[2024-09-23] MEDS ORDERED: glucagon, human recombinant 1mg kit SUBCUT PRN (17:05)
[2024-09-23] MEDS: INSULIN LISPRO 100 UNIT/ML INSULN.PEN MULTI-DOSE SQ SCH ×2 (18:00→21:00)
[2024-09-23 20:00] VITALS: RESP 18; O2SAT 95
[2024-09-23] MEDS: K and/or MAG REPLACEMENT MC SCH (20:00)
[2024-09-23] MEDS: docusate sod 100mg capsule PO SCH (20:00)
[2024-09-23] MEDS: insulin glargine (Lantus) pen - multi-dose SQ SCH (21:00)
[2024-09-23] MEDS: enoxaparin 40mg/0.4ml syringe SQ SCH (21:51)
[2024-09-23 22:00] VITALS: BP 120/88; PULSE 89; RESP 18; TEMP 98.6; O2SAT 92
[2024-09-24] VITALS (7 sets, daily range): BP systolic 104–135; BP diastolic 70–103; PULSE 72–82; RESP 16–22; TEMP 96.6–98.6; O2SAT 93–98
[2024-09-24 06:54] LABS: MEAN PLATELET VOLUME 7.3 FL (7.4-10.4); RED CELL DISTRIBUTION WIDTH 15.6 % (11.5-14.5)
[2024-09-24 07:02] LABS: CREATININE 1.01 MG/DL (0.40-0.90); TOTAL CARBON DIOXIDE 27.9 MMOL/L (24-32); eCRCL 67 ML/MIN; eGFR 61 ML/MIN
[2024-09-24] MEDS: metoprolol succinate 25mg (24-HOUR) SR. Tablet PO SCH (08:07)
[2024-09-24] MEDS: EMPAGLIFLOZIN 10 MG TABLET PO SCH (08:07)
--- NOTE | 2024-09-24 16:37 | CONSULTATION REPORT ---
History of Present Illness Providers to CC CC: KATYA PERRY MD ~ Reason for Admit\Admit Dx: Cardiology consultation Refering MD: bette pond History of Present Illness This is a 39-year-old female with past history of hypertension, diabetes mellitus, chronic respiratory failure on home oxygen. She was diagnosed with suspected pulmonary hypertension during a hospitalization in [place] in April 2022. She spent two weeks in the ICU at that time. Did not have a right heart catheterization but was discharged home on oxygen as well as sildenafil. Unfortunately, due to insurance difficulties she has lost her oxygen. She has a history of methamphetamine use. Last use was about a week ago when she relapsed. Currently in a sober living situation and has not intentions of staying sober. Patient was discharged home on Lasix and some other medications however has been unable to afford her medications as she does not currently have insurance. She ran out of her medications a few days ago and noticed increased facial swelling, abdominal bloating and lower extremity edema. She therefore presented to the hospital. She had a nuclear stress test which was abnormal secondary to severe right heart dilation and likely pulmonary hypertension. It was read as reversibility of the septum and anterior argueta. Read by service desk specialist as no reversible ischemia. Of note, she was seen by Cardiology September 13, 2024 who also noted abnormal nuclear stress test secondary to pulmonary hypertension. Allergies: Coded Allergies: amoxicillin (Unverified Allergy, Unknown, 09/23/24) Uncoded Allergies: PENICILLIN (Allergy, Intermediate, 05/02/17) RASH Home Medications Home Medications Active Lasix* (Furosemide) 20 Mg Tablet 40 Tab PO DAILY 30 Days Atorvastatin Calcium 20 Mg Tablet 20 Mg PO DAILY 30 Days Aspirin 81 Mg Tab.chew 1 Tab PO DAILY 30 Days Metoprolol Succinate 25 Mg Tab.sr.24h 1 Tab PO DAILY 30 Days Jardiance (Empagliflozin) 10 Mg Tablet 1 Tab PO DAILY 30 Days Flagyl* (Metronidazole) 500 Mg Tablet 1 Tab PO Q12H 5 Days Culturelle (Lactobacillus Rhamnosus) 10 Billion Cell Capsule 1 Cap PO BID 30 Days Reported [None] Past Medical History Medical History Comment Suspected pulmonary arterial hypertension secondary to methamphetamine use Hypertension Diabetes mellitus Chronic respiratory failure Past Surgical History Surgical History Comment Denies surgeries Past Family History Family History Comment Father had CHF. from an ID at age 73 Family History: FH: heart disease FATHER Past Social History Social History Comment Patient is attempting to quit smoking. Down to a couple cigarettes per day. Has smoked since age 12. Denies alcohol use. Methamphetamine use disorder. Recent relapse. Currently in sober living. Physical Exam Last Vital Signs Recorded: RN Vital Signs have been reviewed: Yes, Temperature: 97.9, Source: Oral, Heart Rate: 82, Respiratory Rate: 22, BP: 133/103, Pulse Oximetry: 96, Weight: 90.000 Physical Exam General: Awake, alert, oriented. No apparent distress. Jaundice noted in the sclera Neck: Supple. Normal range of motion. No JVD Respiratory: Lungs are clear to auscultation bilaterally. No respiratory distress. Chest: Normal shape and size. No accessory muscle use. Cardiovascular: Regular rate and rhythm. S1-S2. No murmur, gallop, rub. Gastrointestinal: Abdomen is firm. Nontender to palpation. Bowel sounds present. Extremities: No lower extremity edema, cyanosis or clubbing. Neurologic: Alert and oriented x4. Nonfocal Psychiatric: Normal mood and affect. Skin: Normal color. Warm and dry. Review of Systems ROS Patient complains of abdominal pain and bloating. Lower extremity edema improved. Was asked, but otherwise denies review of systems. Results EKG EKG Sinus rhythm rate of 83. Severe biatrial enlargement noted. Incomplete right bundle branch block with QRS duration of 113 milliseconds. Poor R-wave progression. Echocardiogram Echocardiogram Conclusion Left ventricular cavity is small with normal wall thickness. Overall systolic function is normal. Flattened septum consistent with right ventricular volume and pressure overload. LVEF is 65-70%. Right ventricle is severely dilated. Elevated with herat pressures with an RVSP of 79 mmHg. The left atrium size is normal. Right atrium is severely dilated. Trileaflet AV appears mildly sclerotic without stenosis. No insufficiency. Mitral valve leaflets are mildly thickened with mild annular calcification. No stenosis. Trace regurgitation. The tricuspid valve is normal in structure with moderate regurgitation. The pulmonary valve is normal in structure with trace regurgitation. Normal pericardium. No effusion. Dictated by:AISSATOU RAMIREZ MD Dictation date and time:09/12/24 9957 Cardiac Stress Test Cardiac Stress Test Procedure: [facility] SC[facility] Exam Date: 09/13/2024 12:31 PM Reason for study/Clinical History: TROPONINEMIA Comparison Study: [facility] SCAN on DOS: 09/12/24 Myocardial Perfusion Study with SPECT Technique: The patient received an intravenous injection of 7.9 mCi of technetium-99m sestamibi while at rest. After a short delay, SPECT tomographic images of the heart were obtained. The patient then went to the stress lab where they received an intravenous infusion of 0.4 mg lexiscan utilizing standard protocol. 32 mCi of technetium-99m sestamibi was injected intravenously immediately after the start of the lexiscan infusion. Gated SPECT tomographic images of the heart were acquired and processed. Findings: Global dyskinesia. Reversible defects of the septum, anterior argueta End diastolic volume: 56 mL End systolic volume: 26 mL The left ventricular ejection fraction is 54 %. (normal greater than 50%) Impression: Reversible defects of the septum, anterior argueta. Global dyskinesis The left ventricular ejection fraction is 54 %. Electronically Signed by:FABIEN MARTIN MD Date & Time: 09/13/24 0207 Other Other EXAM: CT Angiography Chest With Intravenous Contrast CLINICAL INDICATION: high D-dimer TECHNIQUE: Axial computed tomographic angiography images of the chest with intravenous contrast. This CT exam was performed using one or more of the following dose reduction techniques: automated exposure control, adjustment of the mA and/or kV according to patient size, and/or use of iterative reconstruction technique. MIP reconstructed images were created and reviewed. CONTRAST: COMPARISON: None FINDINGS: LIMITATIONS: Suboptimal opacification of the pulmonary arteries. PULMONARY ARTERIES: No pulmonary embolism is identified. Some of the distal pulmonary arteries cannot be evaluated due to suboptimal opacification. AORTA: No acute findings. No thoracic aortic aneurysm. LUNGS AND PLEURAL SPACES: Suggestion of pulmonary hypertension. Bibasilar atelectasis or scarring. No mass. No significant effusion. No pneumothorax. HEART: Mild cardiomegaly. No significant pericardial effusion. No evidence of RV dysfunction. BONES/JOINTS: No acute fracture. No dislocation. SOFT TISSUES: Unremarkable. LYMPH NODES: Unremarkable. No enlarged lymph nodes. INTRAPERITONEAL SPACE: Large fatty liver with trace ascites. OTHER FINDINGS: . IMPRESSION: 1. No pulmonary embolism is identified. Some of the distal pulmonary arteries cannot be evaluated due to suboptimal opacification. 2. Suggestion of pulmonary hypertension. Electronically Signed by:DARREL CHO MD Date & Time: 09/12/24 1836 Dictated by: DARREL CHO MD Dictation date and time: 09/12/24 1315 Diagram Lab Result Diagram: 09/24/24 0609/24/24 06 Lab Results High sensitivity troponins 434, 503, 467 Assessment/Plan Additional Plan This is a 39-year-old female who presented with abdominal bloating and swelling. The following is her problem list: Severe right ventricular failure Suspected pulmonary arterial hypertension, group one secondary to methamphetamine use TTE demonstrates preserved LVEF. D shaped septum. Severe RV dilation with reduced function. RVSP 79 mm of mercury. Moderate TR. --Recommend referral (outpatient) to [facility] for further evaluation and management of possible PAH --previously on soldenafil. Can consider restarting this however will benefit from at least dual therapy from a PAH center. --continue Lasix to keep euvolemic. NSTEMI ID type 2 secondary to severe right-sided heart failure --previous stress test last admission read as reversibility to the septal and anterior argueta. There is possibly some septal reversibility however over estimated due to massive RV. Continue with medical management. Hypertension --on lisinopril 10 mg daily Diabetes mellitus Hemoglobin A1c 6.7 Tobacco use disorder Patient encouraged to quit Methamphetamine use disorder Patient strongly encouraged to quit. Risks of continued methamphetamine use were reviewed up to and including . Case reviewed with Dr. Cynthia Perry who had the opportunity to review stress test. In agreement with the above. Supervising MD Supervising Physician: RUSTY Zuleta NP Sep 24, 2024 16:37
--- NOTE | 2024-09-24 18:15 | PROGRESS NOTE- Residence ---
Progress Note - Resident Providers to CC Resident Creating Document: TEOFILO WINSTON CC: ILANA POLLOCK MD ~ Antibiotic Timeout Antibiotic Ordered?: No Subjective Patient was examined at bedside today. Her shortness of breath and edema has improved. However, she has some flu-like symptoms with a headache, sore throat and nasal congestion. Objective Vital Signs Date Time Temp Pulse Resp B/P (MAP) Pulse Ox O2 Delivery O2 Flow Rate FiO2 09/24/24 15:00 97.7 76 18 135/90 (105) 93 Nasal Cannula 4.0 Result Diagram: 09/24/2460409/24/24604 General: awake, alert oriented to place, time, and person HEENT: Marked periorbital edema. Nasal cannula in place. No pallor present, no icterus, moist mucous membranes Neck: No masses and tenderness Resp: Unlabored. Lungs clear to auscultation bilaterally. Chest: Normal expansion. Some tenderness to palpation on left hemithorax Cardiovascular: Regular Rate and rhythm, normal S1 and S2 without murmur, rub or gallop Abdomen: Soft and nontender, no organomegaly, no guarding and rigidity, bowel sounds present Neuro: No focal weakness in the upper and lower limb muscles, power of the muscles 5/5 bilateral upper and lower extremities, normal reflexes bilaterally. Cranial nerves intact Extremities: Trace lower extremity edema. No cyanosis or clubbing Skin: Warm and Dry. No lesions Psych: Normal affect Coagulation Studies Laboratory Tests Test 09/24/24 09:10 D-Dimer 12.45 MG/L FEU (0-0.50) H D-Dimer Comment Assessment Assessment Patient is a 39-year-old female with medical history of heart failure with preserved ejection fraction, pulmonary hypertension, type 2 diabetes, hypertension, chronic respiratory failure and substance abuse who came to the ED due to increasing shortness of breaths and edema. Admitted for evaluation and management of acute on chronic heart failure with preserved ejection fraction and pulmonary hypertension. Plan Plan Acute on chronic HFpEF Acute on chronic respiratory failure Pulmonary hypertension/cor pulmonale Generalized edema Chest pain, atypical CAD with positive stress test Methamphetamine induced cardiomyopathy Hypertension/hypertensive urgency, improving Noncompliance Patient with known history of meth induced cardiomyopathy Echocardiogram 10 days ago showed: LVEF is 65-70%. Right ventricle is severely dilated. Elevated with herat pressures with an RVSP of 79 mmHg Stress test last visit was also positive for reversible ischemia. Not cardiac catheterization recommended at that time by Dr. Amador Chest x-ray today is unremarkable DVT/PE were ruled out last visit on CTA and vascular ultrasound ProBNP 2844, increased from 1464 on last discharge Troponins are close to her baseline. 434, 503 today Resume metoprolol 25 mg daily, Jardiance 10 mg daily, baby aspirin, atorvastatin 20 mg daily Added lisinopril Continue Lasix 40 mg daily Strict I's and O's and daily weights Cardiology consulted. Recommended restarting sildenafil and referral to [facility] for dual PAH therapy Type 2 diabetes A1c was 6.7 on last admission Will start Lantus 10 units, lispro 3 units, low-dose supplemental Continue monitoring BG Substance abuse-methamphetamine Patient is currently living at a sober living facility Substance abuse navigator consulted Financial insecurity rehabilitation services director consulted for possible assistance for medication coverage Flu-like symptoms COVID negative Tylenol PRN Code Status: Full code DVT prophylaxis: Lovenox Nutrition: carb controlled PT: Ordered Prognosis: Guarded Disposition: Continue care PCU with tele monitoring. Continue medical management Teofilo Welch MD Internal Medicine Resident PGY-1 Date of Service: Sep 24, 2024 Billing Provider: ILANA POLLOCK MD, LEONARDO LUIS Sep 24, 2024 18:15
[2024-09-24 20:26] LABS: URINE AMPHETAMINE SCREEN NEGATIVE (Neg); URINE BARBITUATE SCREEN NEGATIVE (Neg); URINE BENZODIAZEPINES SCREEN NEGATIVE (Neg); URINE CANNABINOID SCREEN NEGATIVE (Neg); URINE COCAINE SCREEN NEGATIVE (Neg); URINE METHADONE SCREEN NEGATIVE (Neg); URINE OPIATE SCREEN NEGATIVE (Neg); URINE PHENCYCLIDINE SCREEN NEGATIVE (Neg)
[2024-09-24 20:32] LABS: LEUKOCYTE ESTERASE ,URINE NEGATIVE (Neg); NITRITES, URINE NEGATIVE (Neg); OCCULT BLOOD,URINE NEGATIVE (Neg)
[2024-09-24 20:35] LABS: UA COLLECTION TYPE CLN CATCH MIDSTREAM
[2024-09-24 20:53] LABS: SQUAMOUS EPITHELIAL CELL,UR FEW /LPF (FEW)
[2024-09-25 02:00] VITALS: BP 104/65; PULSE 78; RESP 19; TEMP 97.2; O2SAT 93
[2024-09-25 06:18] LABS: MEAN PLATELET VOLUME 7.5 FL (7.4-10.4); RED CELL DISTRIBUTION WIDTH 15.1 % (11.5-14.5)
[2024-09-25 06:37] LABS: CREATININE 1.15 MG/DL (0.40-0.90); TOTAL CARBON DIOXIDE 28.3 MMOL/L (24-32); eCRCL 59 ML/MIN; eGFR 53 ML/MIN
[2024-09-25 07:00] VITALS: BP 108/59; PULSE 68; RESP 19; TEMP 97.4; O2SAT 100
[2024-09-25] MEDS ORDERED: LACT1CAP26 PO (10:28)
[2024-09-25] MEDS ORDERED: ASPI-1265 PO (10:28)
[2024-09-25] MEDS ORDERED: METO-395 PO (10:28)
[2024-09-25] MEDS ORDERED: LISI10TA27 PO (10:28)
[2024-09-25] MEDS ORDERED: METF-1203 PO (10:28)
[2024-09-25] MEDS ORDERED: ATOR20TA66 PO (10:28)
[2024-09-25] MEDS ORDERED: FURO-149 PO (10:28)
[2024-09-25] MEDS ORDERED: EMPA10TA PO (10:28)
[2024-09-25] MEDS ORDERED: SPIR25TA5 PO (10:37)
[2024-09-25 11:00] VITALS: BP 104/86; PULSE 69; RESP 28; TEMP 97.5; O2SAT 96
[2024-09-25] MEDS ORDERED: SILD20TA14 PO (13:49)
--- NOTE | 2024-09-25 14:08 | DISCHARGE SUMMARY-Residence ---
Discharge Summary Providers to CC Resident Creating Document: MALCOLM ENCARNACION RES CC: ILANA POLLOCK MD ~ Discharge Summary Assessment 39-year-old female with medical history of heart failure with preserved ejection fraction, pulmonary hypertension, type 2 diabetes, hypertension, chronic respiratory failure and substance abuse who came to the ED due to increasing shortness of breaths and edema. Admission Diagnosis: Acute on chronic CHF Hospital Course DATE OF ADMISSION: 09/23/2024 DATE OF DISCHARGE: 09/25/2024 Discharge Diagnosis\Comment: Acute on chronic heart failure with preserved ejection fraction Pulmonary hypertension Acute on chronic hypoxemic respiratory failure Methamphetamine induced cardiomyopathy Type 2 VT Type 2 diabetes mellitus MethAmphetamine use disorder Tobacco use disorder Operations\Procedures: None Consultants: Dr.Aazib. Perry, cardiology Complications: None Condition on DC: Stable New Medications: Furosemide (Lasix) 40 Mg Tablet 1 TAB PO DAILY for 30 Days, #30 TAB 0 Refills Metformin HCl (Metformin HCl) 500 Mg Tablet 2 TAB PO BIDWM for 30 Days, #120 TAB Sildenafil Citrate (Sildenafil) 20 Mg Tablet 1 TAB PO Q8H for 30 Days, #90 TAB 0 Refills Spironolactone (Spironolactone) 25 Mg Tablet 25 MG PO DAILY, #30 TAB Lisinopril (Lisinopril) 10 Mg Tablet 10 MG PO DAILY for 30 Days, #30 TAB Continued Medications: Aspirin (Aspirin) 81 Mg Tab.chew 1 TAB PO DAILY for 30 Days, #30 TAB.CHEW (This prescription has been renewed) Atorvastatin Calcium (Atorvastatin Calcium) 20 Mg Tablet 20 MG PO DAILY for 30 Days, #30 TAB (This prescription has been renewed) Empagliflozin (Jardiance) 10 Mg Tablet 1 TAB PO DAILY for 30 Days, #30 TAB 0 Refills (This prescription has been renewed) Lactobacillus Rhamnosus (Culturelle) 10 Billion Cell Capsule 1 CAP PO BID for 30 Days, #60 CAP 0 Refills (This prescription has been renewed) Metoprolol Succinate (Metoprolol Succinate) 25 Mg Tab.sr.24h 1 TAB PO DAILY for 30 Days, #30 TAB 0 Refills (This prescription has been renewed) [None] () Discontinued Medications: Furosemide* (Lasix*) 20 Mg Tablet 40 TAB PO DAILY for 30 Days, #60 TAB Metronidazole* (Flagyl*) 500 Mg Tablet 1 TAB PO Q12H for 5 Days, #10 TAB Discharge Summary: 39-year-old female with medical history of heart failure with preserved ejection fraction, pulmonary hypertension, type 2 diabetes, hypertension, chronic respiratory failure and substance abuse who came to the ED due to increasing shortness of breaths and edema. Hospital course -patient was admitted with acute on chronic hypoxemic respiratory failure. 2D echo showed EF of 65-70% with severely dilated right ventricle with RVSP of 79 -patient had past history of pulmonary hypertension. Cardiology was consulted and they also suggested diagnosis of pulmonary arterial hypertension. She was taking sildenafil 20 mg t.i.d. at one point which she discontinued. But she reported improvement with taking sildenafil -during the hospital course she was started on GD MT with empagliflozin and spironolactone for heart failure with preserved ejection fraction -she was also started on lisinopril and metoprolol for high blood pressures -troponins were elevated in the range of 400s to 500s. And stress test was positive for reversible ischemia. Cardiology consulted and they recommended this could be secondary to PH and no cardiac catheterization was recommended -also had A1c of 6.7 and was started on Lantus and lispro -she received counseling from substance abuse navigator regarding methamphetamine and tobacco cessation -patient's symptoms improved and her oxygen requirements were back to her baseline status. 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 Nasal cannula in place. No pallor present, no icterus, moist mucous membranes Neck: No masses and tenderness Resp: Unlabored. Lungs clear to auscultation bilaterally. Chest: Normal expansion. Some tenderness to palpation on left hemithorax Cardiovascular: Regular Rate and rhythm, normal S1 and S2 without murmur, rub or gallop Abdomen: Soft and nontender, no organomegaly, no guarding and rigidity, bowel sounds present Neuro: No focal weakness in the upper and lower limb muscles, power of the muscles 5/5 bilateral upper and lower extremities, normal reflexes bilaterally. Cranial nerves intact Extremities: Trace lower extremity edema. No cyanosis or clubbing Skin: Warm and Dry. No lesions Psych: Normal affect Labs at discharge CBC- H and H 14/44, WBC 5.3, platelets 249 CMP sodium 140, potassium 4.2, BUN 24, creatinine 1.15, A1c 6.7, Serum bilirubin 3.6, AST 61, ALT 56, ALP 240, albumin 3.1 TSH 3.81 Troponins 434, 503, 467 2D echo done on 09/12/2024 Conclusion Left ventricular cavity is small with normal wall thickness. Overall systolic function is normal. Flattened septum consistent with right ventricular volume and pressure overload. LVEF is 65-70%. Right ventricle is severely dilated. Elevated with herat pressures with an RVSP of 79 mmHg. The left atrium size is normal. Right atrium is severely dilated. Trileaflet AV appears mildly sclerotic without stenosis. No insufficiency. Mitral valve leaflets are mildly thickened with mild annular calcification. No stenosis. Trace regurgitation. The tricuspid valve is normal in structure with moderate regurgitation. The pulmonary valve is normal in structure with trace regurgitation. Normal pericardium. No effusion. Cardiac nuclear stress test done on 09/13/2024 Reversible defects of the septum, anterior argueta. Global dyskinesis The left ventricular ejection fraction is 54 %. Chest CTA done on 09/12/2024 IMPRESSION: 1. No pulmonary embolism is identified. Some of the distal pulmonary arteries cannot be evaluated due to suboptimal opacification. 2. Suggestion of pulmonary hypertension. Her discharge medications can be found above, and she is sent home with the following recommendations Please follow up with your PCP within a week of discharge You also need to follow up with Pulmonary hypertension Clinic at [facility] for further evaluation Strongly recommended to stop using methamphetamine Strongly recommended to be abstinent from nicotine smoking and alcohol use Strongly recommended to be compliant with all medications Follow on the diet mentioned in the handouts for heart failure and diabetes Started you on a new medication called metformin for diabetes Return to the ER in case of any worsening shortness of breaths *Problems/Diagnosis: (1) Pulmonary hypertension (2) Right-sided heart failure Status: Chronic Total Time Spent on D/C: > 30 Minutes Counseling Services Smoking & Tobacco Cessation: 3-10 Minutes Date of Service: Sep 25, 2024 Billing Provider: ILANA POLLOCK MD, HARIVARSHA, RES Sep 25, 2024 14:04
== END 2024-09-25 12:15 | disposition home or self-care (01) | DRG 194 ==
LOC: ER 13:35 → ED HOLD 16:05 → PCU 3S 17:45
PROVIDERS: ADMIT Family Medicine; ATTEND Family Medicine
DX: I11.0 Hypertensive heart disease with heart failure (principal); J96.21 Acute and chronic respiratory failure with hypoxia; I21.A1 Myocardial infarction type 2; I16.0 Hypertensive urgency; I50.33 Acute on chronic diastolic (congestive) heart failure; Z20.822 Contact with and (suspected) exposure to COVID-19; F17.210 Nicotine dependence, cigarettes, uncomplicated; E11.9 Type 2 diabetes mellitus without complications; F15.10 Other stimulant abuse, uncomplicated; I42.7 Cardiomyopathy due to drug and external agent; Z99.81 Dependence on supplemental oxygen; Z88.0 Allergy status to penicillin; Z88.1 Allergy status to other antibiotic agents; I25.2 Old myocardial infarction; Z79.899 Other long term (current) drug therapy; Z91.199 Patient's noncompliance with other medical treatment and regimen due to unspecified reason
CPT/HCPCS: 36415; 71045; 80048; 80053; 80076; 80305; 81001; 82948; 83735; 83880; 84443; 84484; 85025; 85379; 87081; 87811; 93005; 96374; 99285; G0378; J1650; J1815; J1938

== ENCOUNTER 2024-09-25 22:33 | Emergency (ER) | payer MEDICAID ==
[~2024-09-25] VITALS: Ht 175.3 cm; Wt 82.0 kg
[~2024-09-25 22:33] MED LIST changes: +FURO-149 PO; +LISI10TA27 PO; +METF-1203 PO; +SILD20TA14 PO; +SPIR25TA5 PO
[2024-09-25 22:43] VITALS: TEMP 98.6
[2024-09-25 23:02] LABS: MEAN PLATELET VOLUME 7.4 FL (7.4-10.4); RED CELL DISTRIBUTION WIDTH 15.5 % (11.5-14.5)
--- NOTE | 2024-09-25 23:17 | Physician Documentation ---
History of Present Illness ~ Chief Complaint: Chest Pain Stated Complaint: CHEST PAIN Time Seen by MD: 23:11 Primary Medical Doctor: bette pond [facility] Patient presents to the emergency room for evaluation of chest pain similar to previous visit. Please see previous note for details. Medication Reconciliation Allergies: Coded Allergies: Penicillins (Verified Allergy, Unknown, 09/25/24) Uncoded Allergies: PENICILLIN (Allergy, Intermediate, 05/02/17) RASH Scheduled Aspirin (Aspirin), 1 TAB PO DAILY Atorvastatin Calcium (Atorvastatin Calcium), 20 MG PO DAILY Empagliflozin (Jardiance), 1 TAB PO DAILY Furosemide (Lasix), 1 TAB PO DAILY Lactobacillus Rhamnosus (Culturelle), 1 CAP PO BID Lisinopril (Lisinopril), 10 MG PO DAILY Metformin HCl (Metformin HCl), 2 TAB PO BIDWM Metoprolol Succinate (Metoprolol Succinate), 1 TAB PO DAILY Sildenafil Citrate (Sildenafil), 1 TAB PO Q8H Spironolactone (Spironolactone), 25 MG PO DAILY Miscellaneous Medications [None], (Reported) Discontinued Medications Furosemide* (Lasix*), 40 TAB PO DAILY Metronidazole* (Flagyl*), 1 TAB PO Q12H Past Medical History Past Medical History: No Pertinent History, Bipolar Past Surgical History: no surgical history Patient History: FH: heart disease FATHER Alcohol Use: Sober Drug Use: methamphetamine Lives with: Other Lives In: Other Occupation: unemployed Review of Systems ROS All review of systems negative except as per HPI Physical Exam Vital Signs: Temperature: 98.6, Source: Oral, Heart Rate: 77, Respiratory Rate: 16, BP: 123/105, Pulse Oximetry: 92, Weight: 82.000 Oxygen Flow Rate: 0 Physical Exam General: Patient is awake, alert, oriented x4 in no acute distress Head: Normocephalic and atraumatic. Eyes: Conjunctival normal. EOMI. PERRL. ENT: Mucous membranes moist. Neck: Supple, trachea is midline. Chest: Clear to auscultation bilaterally without rales, rhonchi, or wheezes. There is no accessory muscle use or retractions. Cardiac: RRR without murmurs, gallops, or rubs. Progress Results/Orders Results/Orders Orders - EDMOND FORRESTER MD Chest,Single View (09/25/24 23:18) Monitor (09/25/24 22:42) Saline Lock (09/25/24 22:42) Oxygen (09/25/24 22:42) Electrocardiogram (09/25/24 22:42) Hs Troponin I W Calculations (09/26/24 01:42) Completed Orders - EDMOND FORRESTER MD Chest,Single View (09/25/24 23:18) Cbc/Diff (09/25/24 22:42) BMP (09/25/24 22:42) PBNP (09/25/24 22:42) Hs Troponin I W Calculations (09/25/24 22:42) Hs Troponin I W Calculations (09/26/24 00:42) Vital Signs 09/25/24 09/25/24 09/26/24 09/26/24 22:43 22:50 00:17 00:17 Temp 98.6 Pulse 77 88 Resp 16 16 B/P (MAP) 123/105 139/104 (116) Pulse Ox 92 91 O2 Flow Rate 0 2.0 Laboratory Tests Test 09/25/24 22:52 09/26/24 00:33 White Blood Count 6.7 Red Blood Count 5.04 Hemoglobin 15.1 Hematocrit 45.4 H Mean Corpuscular Volume 90.0 Mean Corpuscular Hemoglobin 29.9 Mean Corpuscular Hemoglobin Concent 33.2 Red Cell Distribution Width 15.5 H Platelet Count 264 Mean Platelet Volume 7.4 Neutrophils (%) (Auto) 69.5 Lymphocytes (%) (Auto) 19.0 L Monocytes (%) (Auto) 9.7 Eosinophils (%) (Auto) 0.8 Basophils (%) (Auto) 1.0 Neutrophils # (Auto) 4.7 Lymphocytes # (Auto) 1.3 Monocytes # (Auto) 0.7 Eosinophils # (Auto) 0.1 Basophils # (Auto) 0.1 CBC Comment Sodium Level 141 Potassium Level 4.6 Chloride Level 103 Carbon Dioxide Level 32.6 H Anion Gap 5 L Blood Urea Nitrogen 24 H Creatinine 1.23 H Estimated GFR/1.73 m2 49 BUN/Creatinine Ratio 19.5 Glucose Level 103 Calcium Level 8.8 Troponin I High Sensitivity 357 *H 375 *H Troponin I High Sens Percent Delta 23 5 Troponin I Hi Sens Absolute Change -110 18 Pro-B-Type Natriuretic Peptide 1458 H Albumin 3.3 L Chemistry Comments EKG/XRAY/CT/US/VASC/MRI EKG : Additional Comment EKG interpreted by myself shows time of 05/17/2055, rate 76, sinus rhythm, normal axis, nonspecific ST-T changes Medical Decision Making Findings Patient presents to the emergency room with chief complaint of chest pain as per HPI. Patient's chest pain is atypical and she has just recently been admitted and evaluated by by cardiology therefore he had not feel she requires readmission for re-evaluation by Cardiology. Troponins are elevated however she is known to have a baseline elevation of troponins and that has no significant change seeing 1st and 2nd draws. Differential Dx:Considerations: Include: angina, aortic dissection, chest wall pain, costochondritis, gastritis, myocardial infarction, pericarditis, pneumonia, pulmonary embolus Departure Disposition: 01 HOME / SELF CARE / HOMELESS Impression: Primary Impression: Chest pain Condition: Stable Discharge Instructions: Nonspecific Chest Pain, Adult Referrals: NO PRIMARY CARE PROVIDER (PCP) Signature Scribe Signature: No scribe Attestation: The note accurately reflects work and decisions made by me.Edmond Forrester MD 09/26/24 01:03 EDMOND FORRESTER MD Sep 25, 2024 23:17
[2024-09-25 23:24] LABS: CREATININE 1.23 MG/DL (0.40-0.90); PRO BRAIN NATRIURETIC PEPTIDE 1458 PG/ML (0-125); TOTAL CARBON DIOXIDE 32.6 MMOL/L (24-32); eCRCL 64 ML/MIN; eGFR 49 ML/MIN
--- NOTE | 2024-09-26 00:26 | RADIOLOGY REPORT ---
CHEST RADIOGRAPH Indication: CP Technique: Single frontal view of the chest was obtained COMPARISON: DI CHEST,SINGLE VIEW on DOS: 09/23/24, DI CHEST,SINGLE VIEW on DOS: 09/11/24 FINDINGS: Lines and Tubes: None Lungs: Clear Pleura: No effusion. No pneumothorax. Cardiomediastinal contours: Cardiomegaly. Bones: Unremarkable IMPRESSION: 1. No acute disease. 2. Cardiomegaly.
[2024-09-26 01:15] VITALS: BP 133/99; PULSE 76; RESP 19; O2SAT 94
--- NOTE | 2024-09-26 05:25 | ELECTROCARDIOGRAPH REPORT ---
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 Jose E Horvath Measurements Intervals [place] Rate: 76 P: 76 [place]: 177 QRS: 95 QRSD: 115 T: -15 QT: 437 QTc: 492 Interpretive Statements Sinus rhythm Biatrial enlargement Incomplete right bundle branch block Anteroseptal infarct, age indeterminate Electronically Signed On 09-26-2024 6:10:[address] Jose E Horvath Please click the below link to view image of tracing.
== END 2024-09-26 01:17 | disposition home or self-care (01) ==
LOC: ER 22:33
DX: R07.9 Chest pain, unspecified (principal); R06.02 Shortness of breath; F15.90 Other stimulant use, unspecified, uncomplicated; F10.90 Alcohol use, unspecified, uncomplicated; Z88.0 Allergy status to penicillin; Y90.9 Presence of alcohol in blood, level not specified
CPT/HCPCS: 36415; 71045; 80048; 83880; 84484; 85025; 93005; 99285

== ENCOUNTER 2024-10-04 11:18 | Inpatient (IN) | payer MEDICAID ==
[~2024-10-04] VITALS: Ht 175.3 cm; Wt 75.0 kg
[~2024-10-04 11:18] MED LIST changes: -FURO-150 PO; -METR-159 PO
--- NOTE | 2024-10-04 11:40 | ELECTROCARDIOGRAPH REPORT ---
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
[2024-10-04 12:03] LABS: MEAN PLATELET VOLUME 7.4 FL (7.4-10.4); RED CELL DISTRIBUTION WIDTH 15.0 % (11.5-14.5)
[2024-10-04 12:13] LABS: APTT 27 SECONDS (22-32); INR 1.0 INR
[2024-10-04 12:16] LABS: CREATININE 1.02 MG/DL (0.40-0.90); TOTAL CARBON DIOXIDE 25.4 MMOL/L (24-32); eCRCL 77 ML/MIN; eGFR 60 ML/MIN
[2024-10-04 12:23] LABS: PRO BRAIN NATRIURETIC PEPTIDE 2017 PG/ML (0-125)
--- NOTE | 2024-10-04 12:27 | RADIOLOGY REPORT ---
EXAM: DI CHEST,SINGLE VIEW Indication: Chest pain, shortness a breath Technique: Single frontal view of the chest was obtained Comparison: DI CHEST,SINGLE VIEW on DOS: 09/25/24, DI CHEST,SINGLE VIEW on DOS: 09/23/24, DI CHEST,SINGL E VIEW on DOS: 09/11/24 FINDINGS: Lines and Tubes: None Lungs: No focal consolidation. Pleura: No effusion. No pneumothorax. Cardiomediastinal contours: Unremarkable Bones: No acute osseous abnormality. IMPRESSION: No acute cardiopulmonary disease.
--- NOTE | 2024-10-04 15:33 | Physician Documentation ---
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 Similar to prior. It is exertional and positional. EMS noted her to be hypoxic, she now requires 3 L. She is supposed to be on oxygen, however does not have the supplies. 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 Currently drug free. Medication Reconciliation Allergies: Coded Allergies: Penicillins (Verified Allergy, Unknown, 10/04/24) Uncoded Allergies: PENICILLIN (Allergy, Intermediate, 05/02/17) RASH Scheduled Aspirin (Aspirin), 1 TAB PO DAILY Atorvastatin Calcium (Atorvastatin Calcium), 20 MG PO DAILY Empagliflozin (Jardiance), 1 TAB PO DAILY Furosemide (Lasix), 1 TAB PO DAILY Lactobacillus Rhamnosus (Culturelle), 1 CAP PO BID Lisinopril (Lisinopril), 10 MG PO DAILY Metformin HCl (Metformin HCl), 2 TAB PO BIDWM Metoprolol Succinate (Metoprolol Succinate), 1 TAB PO DAILY Sildenafil Citrate (Sildenafil), 1 TAB PO Q8H Spironolactone (Spironolactone), 25 MG PO DAILY Miscellaneous Medications [None], (Reported) Past Medical History Past Medical History: No Pertinent History, Bipolar Past Surgical History: no surgical history Patient History: FH: heart disease FATHER Alcohol Use: Sober Drug Use: methamphetamine Lives with: Other Lives In: Other Occupation: unemployed Review of Systems ROS 10 point review of systems was performed and unless noted above in HPI is negative for acute process/complaint. Physical Exam Vital Signs: Temperature: 97.0, Source: Temporal, Heart Rate: 66, Respiratory Rate: 18, BP: 109/79, Pulse Oximetry: 97, Weight: 75.000 Oxygen Flow Rate: 2.0 Physical Exam GENERAL: Awake, alert, oriented, GCS 15, no apparent distress, non-toxic appearing, answers questions, follows commands appropriately. HEENT: Atraumatic, normocephalic, pupils equal, extraocular muscles intact, sclerae anicteric, mucus membranes moist, oropharynx is clear, no stridor. NECK: supple, full active range of motion, trachea midline, no thyromegaly, no lymphadenopathy, no JVD. CARDIOVASCULAR: regular rate/rhythm, no murmurs/gallops/rubs, Pulses are 2+ in all extremities and symmetric. Capillary refill less than 2 seconds. PULMONARY: Nonlabored on 3 L of supplemental oxygen, good air movement ,no respiratory distress, speaking in full sentences, clear to auscultation bilaterally, no wheezing, no ronchi, no rales, no accessory muscle use. GASTROINTESTINAL: Soft, non-tender, non-distended, normal active bowel sounds, no organomegaly, no pulsatile masses, no CVA tenderness. NEUROLOGIC: Lucid with normal mental status. Normal facial symmetry. Moves all extremities symmetrically and with purpose. No truncal ataxia. Speech is fluid without evidence of dysarthria or aphasia, no focal deficits appreciated. MUSCULOSKELETAL: There is full range of motion of all extremities. There is no joint pain or joint swelling or joint erythema. There is no muscle pain or tenderness or swelling. EXTREMITIES: warm, well-perfused, no cyanosis, no clubbing, no edema, no acute deformities. Skin: warm, dry, no rashes or lesions, no jaundice, no petechiae orpurpura. No ecchymosis. PSYCHIATRIC: Normal affect, normal insight, normal concentration. Focused exam: [] Progress Results/Orders Results/Orders Orders - MONICO JOHNS DO Culture Blood (10/04/24 11:37) Chest,Single View (10/04/24 11:37) Completed Orders - MONICO JOHNS DO Electrocardiogram (10/04/24 11:37) Cbc/Diff (10/04/24 11:37) ESR (10/04/24 11:37) D-Dimer (10/04/24 11:37) C-Reactive Protein (10/04/24 11:37) Pt Inr (10/04/24 11:37) PTT (10/04/24 11:37) Chest,Single View (10/04/24 11:37) PBNP (10/04/24 11:37) MG (10/04/24 11:37) CMP (10/04/24 11:37) Hs Troponin I W Calculations (10/04/24 11:37) Hs Troponin I W Calculations (10/04/24 13:37) Hs Troponin I W Calculations (10/04/24 14:37) Lacticsepsis (10/04/24 11:37) Vital Signs 10/04/24 10/04/24 10/04/24 10/04/24 11:38 11:50 11:54 12:49 Temp 97.0 Pulse 64 68 64 Resp 17 19 24 14 B/P (MAP) 117/87 111/75 (87) Pulse Ox 94 93 97 O2 Flow Rate 2.0 2.0 10/04/24 14:33 Pulse 66 Resp 18 B/P (MAP) 109/79 (89) Pulse Ox 97 O2 Flow Rate 2.0 Laboratory Tests Test 10/04/24 11:47 10/04/24 11:48 10/04/24 13:28 10/04/24 14:31 Erythrocyte Sedimentation Rate 4 Lactic Acid Level 0.8 White Blood Count 5.8 Red Blood Count 5.60 Hemoglobin 17.2 H Hematocrit 50.3 H Mean Corpuscular Volume 89.9 Mean Corpuscular Hemoglobin 30.7 Mean Corpuscular Hemoglobin Concent 34.2 Red Cell Distribution Width 15.0 H Platelet Count 268 Mean Platelet Volume 7.4 Neutrophils (%) (Auto) 53.9 Lymphocytes (%) (Auto) 33.8 Monocytes (%) (Auto) 10.6 Eosinophils (%) (Auto) 0.6 Basophils (%) (Auto) 1.1 H Neutrophils # (Auto) 3.1 Lymphocytes # (Auto) 2.0 Monocytes # (Auto) 0.6 Eosinophils # (Auto) 0.0 Basophils # (Auto) 0.1 CBC Comment Prothrombin Time 10.3 INR International Normalized Ratio 1.0 Activated Partial Thromboplast Time 27 D-Dimer 1.06 H D-Dimer Comment Coagulation Comments Sodium Level 133 L Potassium Level 4.3 Chloride Level 100 Carbon Dioxide Level 25.4 Anion Gap 8 Blood Urea Nitrogen 28 H Creatinine 1.02 H Estimated GFR/1.73 m2 60 BUN/Creatinine Ratio 27.5 H Glucose Level 92 Calcium Level 9.0 Magnesium Level 2.5 H Total Bilirubin 2.8 H Aspartate Amino Transf (AST/SGOT) 47 H Alanine Aminotransferase (ALT/SGPT) 65 Alkaline Phosphatase 255 H Troponin I High Sensitivity 358 *H 335 *H 356 *H C-Reactive Protein 0.13 Pro-B-Type Natriuretic Peptide 2017 H Total Protein 8.1 Albumin 3.7 Globulin 4.4 H Albumin/Globulin Ratio 0.8 L Chemistry Comments Troponin I High Sens Percent Delta 6 6 Troponin I Hi Sens Absolute Change -23 21 Microbiology Date/Time Source Procedure Growth Status 10/04/24 11:48 Blood Arm Right Blood Culture - Preliminary NEGATIVE (LESS THAN 24 HOURS) Resulted EKG/XRAY/CT/US/VASC/MRI EKG : Additional Comment EKG was obtained and interpreted by myself shows sinus rhythm of 64, normal OR interval, borderline QRS with a incomplete right bundle, QT of 509, right axis, J-point depression in the inferior leads and precordial leads with T-wave inversions. No STEMI. Medical Decision Making Findings Facility Status: ED Holds, [facility] process The plan was discussed with the patient, who demonstrates clear understanding of the plan and is in agreement with the plan unless otherwise noted in the chart. All questions have been answered, all concerns were addressed unless otherwise documented. I was available throughout their ED stay for frequent reassessment and questions. Differential Diagnoses (considered and possible or likely): [CHF, COPD, ACS, pneumonia, less likely pneumothorax, less likely anemia requiring transfusion, less likely PE] ??Differential Diagnoses (considered and unlikely, not requiring evaluation currently): [See above] MDM Data Please see [facility] for the following: Independent Historians and external Records Review. Historian: [Patient] Independent Historians: ?[Record review, EMS] Medication Management: [Reviewed medication list] Social History and determinants: [Reviewed] Please see the body of the note for the following: Any independent interpretations of ECG, imaging studies. All vitals signs/haemodynamics, ordered tests were independently reviewed and interpreted by myself. Nursing triage complaint and vitals reviewed, additional nursing notes were reviewed as available and I agree unless otherwise noted or documented in contradiction in the chart Vital Signs: Independently reviewed Labs: Independently interpreted Imaging: Independently interpreted Old Medical Records: Independently reviewed, see HPI for relevant summary and information Pulse Oximetry: [97% on 3 L] interpreted as [hypoxia, new onset need for supplemental oxygen] by me [Registered Nurses: [Regular Rate, Regular rhythm, no ectopy, NSR] reviewed and interpreted by me] Additionally notably showing: [Hemodynamics reviewed. Patient is does require supplemental oxygen, no evidence of tachycardic, no evidence of hypotension. Laboratory studies showed hemo concentration. D-dimer is elevated 1.06. Chemistry notable for intravascular depletion. Lactic acid is normal. BNP is elevated, as well as troponins.] Tests considered but not ordered include: [CTA pending at the time of admission] Social Determinants of Health Impact: Patient was evaluated in [facility], or [facility] [place] to healthcare due to below par ratio of patient to medical providers. [] Comorbid Conditions Impacting Present Evaluation and Care/Treatment: [Congestive heart failure] Management Discussions with other Healthcare Providers: [Hospitalist regarding admission] Treatment and Disposition Medication Management (Given or considered): []. See EMR for details Consideration for Hospitalization/Escalation/Deescalation of Care: Admission for observation is necessary for further management of her hypoxia, CHF exacerbation, elevated troponin/heart strain ?ED Course:?[No clinical deterioration or improvement] ?Shared decision making:?[] Code status:?FULL Please see the full Electronic Medical Record for full details of nursing documentation, medications list, other records of complete past medical history and conditions, vital signs, laboratory studies, and any radiologic study interpretations by radiologists. Portions of this note were completed using [employer] dictation software and as a result there may exist minor errors in spel ling. I have reviewed elements of past family and social history and agree as included in note. Departure Disposition: ADMITTED INPATIENT Admitted to Inpatient Unit: to hospitalist Impression: Primary Impression: Acute hypoxic respiratory failure Additional Impressions: Acute exacerbation of congestive heart failure Elevated troponin Condition: Stable Referrals: NO PRIMARY CARE PROVIDER (PCP) Signature Scribe Signature: No scribe Attestation: This note accurately reflects clinical decisions, work performed by myself, Monico Johns, MONICO MATUTE DO Oct 04, 2024 15:32
[2024-10-04] MEDS ORDERED: potassium Cl 20 mEq SR tablet PO PRN ×2 (16:30)
[2024-10-04] MEDS ORDERED: magnesium Cl slow-release 64mg tablet PO PRN (16:30)
[2024-10-04] MEDS ORDERED: acetaminophen 650mg rectal suppository RC PRN (16:30)
[2024-10-04] MEDS ORDERED: mag hydrox/Alum hydrox/simeth 30ml oral suspension PO PRN (16:30)
[2024-10-04] MEDS ORDERED: potassium Cl 40MEQ/1/2NS 520ml 520 ML IV PRN (16:30)
[2024-10-04] MEDS ORDERED: magnesium sulf-water 2g/50mL 50 ML IV PRN (16:30)
[2024-10-04] MEDS ORDERED: magnesium hydroxide 30ml (MOM) UD suspension PO PRN (16:30)
[2024-10-04] MEDS ORDERED: magnesium sulf-water 4G/100mL 100 ML IV PRN (16:30)
[2024-10-04] MEDS ORDERED: bisacodyl 10mg suppository rectal RC PRN (16:30)
[2024-10-04] MEDS: furosemide 10 MG/1 ML 10ml inj IV ONE (17:31)
[2024-10-04 17:50] VITALS: PULSE 80; PULSE 82; RESP 20; O2SAT 98; O2SAT 99
[2024-10-04] MEDS: nicotine 21mg patch - 24 hr TD SCH (19:19)
[2024-10-04] MEDS: K and/or MAG REPLACEMENT MC SCH (19:20)
[2024-10-04] MEDS: docusate sod 100mg capsule PO SCH (19:21)
[2024-10-04] MEDS: heparin, porcine 5000 units/ml vial SQ SCH (19:21)
[2024-10-04 19:42] LABS: URINE HCG NEGATIVE (NEG)
[2024-10-04 19:44] LABS: LEUKOCYTE ESTERASE ,URINE NEGATIVE (Neg); NITRITES, URINE NEGATIVE (Neg); OCCULT BLOOD,URINE TRACE-INTACT (Neg)
[2024-10-04 19:45] LABS: UA COLLECTION TYPE CLN CATCH MIDSTREAM
[2024-10-04 19:49] LABS: SQUAMOUS EPITHELIAL CELL,UR FEW /LPF (FEW)
[2024-10-04 19:51] LABS: URINE AMPHETAMINE SCREEN NEGATIVE (Neg); URINE BARBITUATE SCREEN NEGATIVE (Neg); URINE BENZODIAZEPINES SCREEN NEGATIVE (Neg); URINE CANNABINOID SCREEN NEGATIVE (Neg); URINE COCAINE SCREEN NEGATIVE (Neg); URINE METHADONE SCREEN NEGATIVE (Neg); URINE OPIATE SCREEN NEGATIVE (Neg); URINE PHENCYCLIDINE SCREEN NEGATIVE (Neg)
--- NOTE | 2024-10-04 20:46 | HISTORY AND PHYSICAL-Residence ---
History & Physical Providers to CC Resident Creating Document: RITO LAFLEUR, RES ~ History of Present Illness Primary Medical Doctor: bette pond Reason for Admit\Complaint: Chest pain History of Present Illness The patient is a 39-year-old female with a significant medical history including heart failure with preserved ejection fraction (HFpEF), pulmonary arterial hypertension (PAH), chronic respiratory failure, type 2 diabetes mellitus, essential hypertension, and methamphetamine-induced cardiomyopathy. She was recently hospitalized and discharged just over a week ago following an admission for acute decompensated heart failure. She was initiated on guideline-directed medical therapy (GDMT), including metoprolol, empagliflozin, and spironolactone; however, due to ongoing insurance issues, she was unable to fill or resume any of her discharge medications. Today, she presents again with complaints of worsening shortness of breath, orthopnea, paroxysmal nocturnal dyspnea (PND), and with the no facial and abdominal swelling. She also endorsed intermittent stabbing chest pain episodes rated 7/10 in intensity, sudden in onset, began today, radiating to the neck and jaw, though currently resolved. Additionally, she describes chills, hot flashes, and drenching sweats, despite being in an air-conditioned room. She remains on baseline oxygen, of 2 L. but however she claims that she never got her oxygen delivery equipment delivered at home. She resides in a sober living facility and admits to continued cigarette use (12/day) despite cessation counseling. She remains abstinent from alcohol and methamphetamine since her last discharge. She does not have a primary care physician or toolroom attendant due to ongoing insurance limitations. She is hemodynamically stable on presentation. [facility], cardiology and pulmonology Allergies: Coded Allergies: Penicillins (Verified Allergy, Unknown, 10/04/24) Home Medications Home Medications Active Sildenafil (Sildenafil Citrate) 20 Mg Tablet 1 Tab PO Q8H 30 Days Spironolactone 25 Mg Tablet 25 Mg PO DAILY Metformin HCl 500 Mg Tablet 2 Tab PO BIDWM 30 Days Lasix (Furosemide) 40 Mg Tablet 1 Tab PO DAILY 30 Days Lisinopril 10 Mg Tablet 10 Mg PO DAILY 30 Days Atorvastatin Calcium 20 Mg Tablet 20 Mg PO DAILY 30 Days Aspirin 81 Mg Tab.chew 1 Tab PO DAILY 30 Days Metoprolol Succinate 25 Mg Tab.sr.24h 1 Tab PO DAILY 30 Days Jardiance (Empagliflozin) 10 Mg Tablet 1 Tab PO DAILY 30 Days Culturelle (Lactobacillus Rhamnosus) 10 Billion Cell Capsule 1 Cap PO BID 30 Days Reported [None] Past Medical History Past Medical History Heart failure with preserved ejection fraction, pulmonary hypertension, type 2 diabetes, hypertension, chronic respiratory failure Methamphetamine use disorder Past Surgical History Surgical History Comment None Family History Family History: FH: heart disease FATHER Past Social History Social History Comment Smoking: Continue smokes about 2 cigarettes a day, smoked of about half a pack of cigarettes for approximately 10 years Alcohol use: Admits to heavy alcohol use in the past but could few years ago Illicit drug use: Methamphetamine, last 1 month ago Smoking: Cigarettes Alcohol Use: Sober Drug Use: Methamphetamine Lives with: Other Lives In: Other Occupation: unemployed ROS ROS Reviewed in full. All negative except for pertinent positive HPI. Exam Vitals: Vital Signs Date Time Temp Pulse Resp B/P (MAP) Pulse Ox O2 Delivery O2 Flow Rate FiO2 10/04/24 19:30 95 Nasal Cannula* 2 28 10/04/24 19:25 87 15 107/73 (84) 10/04/24 11:38 97.0 General: Awake , alert, and oriented x4, resting comfortably in the bed, in mild acute distress HEENT: Atraumatic, normocephalic, EOMI, anicteric sclera ; pink conjunctiva Neck: Trachea midline. Supple, full range of motion, no JVD Cardiac: Regular rhythm, regular rate with no murmurs all over the precordium. Respiratory: Equal breath sounds bilaterally, no tachypnea, no wheezing ,rub or rales, Chest wall is symmetric and without deformity. Gastrointestinal: Abdomen symmetric, non-distended, soft, non-tender, normal bowel sounds x4 quadrant, normoactive, no hepatosplenomegaly Musculoskeletal: Mild 1+ pedal edema Neurological: Speech is clear, alert, and oriented x 4. No motor or sensory deficit, deep tendon reflexes normal, cerebellar intact. Cranial nerves II-XII intact. Skin: Warm and dry Diagnostic Data Last Recorded Lab Results: 10/04/24 1148 10/04/24 1148 Diagnostic Data: Laboratory Tests Test 10/04/24 11:48 Prothrombin Time 10.3 SECONDS (9.0-12.0) INR International Normalized Ratio 1.0 INR Activated Partial Thromboplast Time 27 SECONDS (22-32) D-Dimer 1.06 MG/L FEU (0-0.50) H D-Dimer Comment Coagulation Comments Advance Care Planning Advanced Care plannin - 30 Minutes Additional Plan 1. Acute on Chronic Heart Failure with Preserved Ejection Fraction (HFpEF) Type 2 versus type 1 NH- demand ischemia (Type 2 NH) due to volume overload/PAH Heart score 6 Patient presented with hot flashes and severe diaphoresis Differentials include: Exacerbation of COPD, HFpEF, hypothyroidism/hyperthyroidism, pulmonary hypertension Known HFpEF, currently presenting with classic signs and symptoms of volume overload (orthopnea, PND,). 2D echo (09/12): LVEF 6570%, severely dilated RV, RVSP 79 mmHg, moderate TR consistent with pulmonary hypertension/cor pulmonale. ProBNP elevated to 2844 (from 1464 at prior discharge). Troponins stable but mildly elevated (721945), likely demand ischemia (Type 2 NH) due to volume overload/PAH. Ordered another troponin Initiated furosemide 40 mg IV b.i.d. Continue strict I/Os, daily weights. Restarted GDMT: empagliflozin 10 mg daily, spironolactone 25 mg daily, metoprolol succinate 25 mg daily. Started lisinopril 10 mg daily for afterload reduction. Patient educated on strict salt and fluid restriction. 2. Pulmonary Hypertension (PAH) / Cor Pulmonale Chronic, previously confirmed by echo and CTA. RVSP 79 mmHg; severely dilated RV; RA also dilated. Restarted sildenafil 20 mg TID (previously beneficial). Referral to [facility] Clinic pending; emphasized as critical follow-up. 3. Methamphetamine-Induced Cardiomyopathy / Substance Use Meth-induced cardiomyopathy with PAH. Substance use navigator consulted previously. Patient remains in sober living facility and continues to abstain from methamphetamines and alcohol. Smoking cessation advised currently smokes 12 cigarettes/day; encouraged to quit, offered resources again. 4. Chest Pain / Type 2 NSTEMI Heart score 6 Recurrent intermittent chest pain (stabbing, 7/10, brief). Nuclear stress test: reversible ischemia, EF 54% during the previous admission. Troponins mildly elevated but stable consistent with Type 2 NH in context of HF and PAH. Another troponin level ordered Cardiology previously deferred cardiac cath due to presumed PAH-driven ischemia. No ongoing anginal symptoms; continue conservative management with aspirin 81 mg, atorvastatin 20 mg, beta-lois. 5. History of Acute on Chronic Respiratory Failure, COPD and heart failure Baseline oxygen dependent; currently on home 2 L O2 No signs of acute hypoxemia or respiratory distress on re-admission. Restarted on home oxygen. 6. Type 2 Diabetes Mellitus A1c from prior admission: 6.7%. Initiated Lantus 10 units qHS and lispro 3 units TID with meals, plus sliding scale. 7. Hypertension / Hypertensive Urgency BP on admission: 182/128. Restarted lisinopril and metoprolol as above. BP now improved; continue to monitor closely. 8. Social Determinants / Noncompliance Medication noncompliance secondary to insurance and pharmacy access. Social work consulted again to help coordinate medication coverage. Encouraged follow-up with primary care and cardiology upon insurance resolution. Disposition and Follow-Up Condition at previous discharge: Hemodynamically stable, improved respiratory status, euvolemic. Follow-up: Pulmonary Hypertension Clinic at [facility]. Code Status: Full code DVT Prophylaxis: Heparin SQ Prognosis: Guarded Disposition: Continue medical management, we will consult Cardiology tomorrow Rito Lafleur MD Internal Medicine Resident, PGY-2 Date of Service: Oct 04, 2024 Billing Provider: ILANA POLLOCK MD, GAURAV, RES Oct 04, 2024 20:46
[2024-10-04 21:08] LABS: ETHANOL < 10 MG/DL (<10)
[2024-10-04 23:45] VITALS: BP 122/76; PULSE 66; RESP 18; O2SAT 100
[2024-10-05] VITALS (9 sets, daily range): BP systolic 96–122; BP diastolic 46–79; PULSE 68–75; RESP 12–20; TEMP 97.2–97.8; O2SAT 96–100
[2024-10-05] MEDS ORDERED: HYDR50TA65 PO (00:25)
[2024-10-05 07:04] LABS: MEAN PLATELET VOLUME 7.7 FL (7.4-10.4); RED CELL DISTRIBUTION WIDTH 14.9 % (11.5-14.5)
[2024-10-05 07:25] LABS: CREATININE 1.09 MG/DL (0.40-0.90); PHOSPHORUS 4.4 MG/DL (2.3-4.5); TOTAL CARBON DIOXIDE 27.6 MMOL/L (24-32); eCRCL 72 ML/MIN; eGFR 56 ML/MIN
[2024-10-05] MEDS: normal saline 1000ml 1,000 ML IV SCH (08:25)
[2024-10-05] MEDS: metoprolol succinate 25mg (24-HOUR) SR. Tablet PO SCH (09:43)
[2024-10-05] MEDS: EMPAGLIFLOZIN 10 MG TABLET PO SCH (09:45)
--- NOTE | 2024-10-05 14:23 | PROGRESS NOTE- Residence ---
Progress Note - Resident Providers to CC Resident Creating Document: RITO LAFLEUR RES ~ Antibiotic Timeout Antibiotic Ordered?: No Subjective Patient was seen and examined at bedside, patient claims of having an episode of shortness of breaths with a associated throat discomfort after receiving Lasix. Recommended to further monitor for such episodes on receiving Lasix. No acute overnight symptoms Objective Vital Signs Date Time Temp Pulse Resp B/P (MAP) Pulse Ox O2 Delivery O2 Flow Rate FiO2 10/05/24 08:00 12 99 Nasal Cannula 3.0 10/05/24 06:30 69 10/05/24 06:00 97.7 109/79 (89) 10/04/24 19:30 28 Result Diagram: 10/05/24 0545 10/05/24 0545 Awake , alert, and oriented x4, resting comfortably in the bed, in mild acute distress HEENT: Atraumatic, normocephalic, EOMI, anicteric sclera ; pink conjunctiva Neck: Trachea midline. Supple, full range of motion, no JVD Cardiac: Regular rhythm, regular rate with no murmurs all over the precordium. Respiratory: Equal breath sounds bilaterally, no tachypnea, no wheezing ,rub or rales, Chest wall is symmetric and without deformity. Gastrointestinal: Abdomen symmetric, non-distended, soft, non-tender, normal bowel sounds x4 quadrant, normoactive, no hepatosplenomegaly Musculoskeletal: Mild 1+ pedal edema Neurological: Speech is clear, alert, and oriented x 4. No motor or sensory deficit, deep tendon reflexes normal, cerebellar intact. Cranial nerves II-XII intact. Skin: Warm and dry Coagulation Studies Laboratory Tests Test 10/04/24 11:48 Prothrombin Time 10.3 SECONDS (9.0-12.0) INR International Normalized Ratio 1.0 INR Activated Partial Thromboplast Time 27 SECONDS (22-32) D-Dimer 1.06 MG/L FEU (0-0.50) H D-Dimer Comment Coagulation Comments Advance Care Planning Advanced Care plannin - 30 Minutes Assessment Assessment This patient was recently hospitalized and discharged just over a week ago following an admission for acute decompensated heart failure. She was initiated on guideline-directed medical therapy (GDMT), including metoprolol, empagliflozin, and spironolactone; however, due to ongoing insurance issues, she was unable to fill or resume any of her discharge medications. She presented again with complaints of worsening shortness of breath, orthopnea, paroxysmal nocturnal dyspnea (PND), and with the no facial and abdominal swelling. She also endorsed intermittent stabbing chest pain episodes rated 7/10 in intensity, sudden in onset, began today, radiating to the neck and jaw, though currently resolved. Additionally, she describes chills, hot flashes, and drenching sweats, despite being in an air-conditioned room. She remains on baseline oxygen, of 2 L. but however she claims that she never got her oxygen delivery equipment delivered at home. Plan Plan 1. Acute on Chronic Heart Failure with Preserved Ejection Fraction (HFpEF) Type 2 NM- demand ischemia (Type 2 NM) due to volume overload/PAH Heart score 6 Patient presented with hot flashes and severe diaphoresis Differentials include: Exacerbation of COPD, HFpEF, hypothyroidism/hyperthyroidism, pulmonary hypertension Known HFpEF, currently presenting with classic signs and symptoms of volume overload (orthopnea, PND,). 2D echo (09/12): LVEF 6570%, severely dilated RV, RVSP 79 mmHg, moderate TR consistent with pulmonary hypertension/cor pulmonale. ProBNP elevated to 2844 (from 1464 at prior discharge). Troponins stable but mildly elevated ([id number]), likely demand ischemia (Type 2 NM) due to volume overload/PAH. Ordered another troponin Initiated furosemide 40 mg IV b.i.d. Continue strict I/Os, daily weights. Restarted GDMT: empagliflozin 10 mg daily, spironolactone 25 mg daily, metoprolol succinate 25 mg daily. Started lisinopril 10 mg daily for afterload reduction. Patient educated on strict salt and fluid restriction. 10/05/2024: Another troponin was 333, stable with no significant elevation Continue furosemide 40 mg IV b.i.d., GDM T with a empagliflozin, spironolactone metoprolol succinate, lisinopril Patient claims of having an episode of shortness of breaths, throat giving away after 10 minutes of receiving IV Lasix, continuing IV Lasix for now please monitor for any further episodes If patient has similar episodes we will consider changing the class of diuretics from furosemide. 2. Acute hypoxemic respiratory failure secondary to exacerbation of COPD and HFpEF Pulmonary Hypertension (PAH) / Cor Pulmonale Chronic, previously confirmed by echo and CTA. RVSP 79 mmHg; severely dilated RV; RA also dilated. Restarted sildenafil 20 mg TID (previously beneficial). Referral to [facility] pending; emphasized as critical follow-up. 3. Methamphetamine-Induced Cardiomyopathy / Substance Use Meth-induced cardiomyopathy with PAH. Substance use navigator consulted previously. Patient remains in sober living facility and continues to abstain from methamphetamines and alcohol. Smoking cessation advised currently smokes 12 cigarettes/day; encouraged to quit, offered resources again. 4. Chest Pain / Type 2 NSTEMI Heart score 6 Recurrent intermittent chest pain (stabbing, 10, brief). Nuclear stress test: reversible ischemia, EF 54% during the previous admission. Troponins mildly elevated but stable consistent with Type 2 NM in context of HF and PAH. Another troponin level ordered Cardiology previously deferred cardiac cath due to presumed PAH-driven ischemia. No ongoing anginal symptoms; continue conservative management with aspirin 81 mg, atorvastatin 20 mg, beta-lois. 10/05/2024: Reconsulted Cardiology, awaiting recommendations 5. History of Acute on Chronic Respiratory Failure, COPD and heart failure Baseline oxygen dependent; currently on home 2 L O2 No signs of acute hypoxemia or respiratory distress on re-admission. Restarted on home oxygen. 6. Type 2 Diabetes Mellitus A1c from prior admission: 6.7%. Continue Lantus 10 units qHS and lispro 3 units TID with meals, plus sliding scale. 7. Hypertension / Hypertensive Urgency BP on admission: 182/128. Restarted lisinopril and metoprolol as above. BP now improved; continue to monitor closely. 10/05/2024: Blood pressure has normalized today 8. Social Determinants / Noncompliance Medication noncompliance secondary to insurance and pharmacy access. Social work consulted again to help coordinate medication coverage. Encouraged follow-up with primary care and cardiology upon insurance resolution. Disposition and Follow-Up Condition at previous discharge: Hemodynamically stable, improved respiratory status, euvolemic. Follow-up: Pulmonary Hypertension Clinic at [facility]. Code Status: Full code DVT Prophylaxis: Heparin SQ Prognosis: Guarded Disposition: Continue medical management, consult Cardiology today. Rito Lafleur MD Internal Medicine Resident, PGY-2 Date of Service: Oct 05, 2024 Billing Provider: ILANA POLLOCK MD, GAURAV, RES Oct 05, 2024 14:23
[2024-10-05] MEDS ORDERED: DAPA10TA PO (17:22)
[2024-10-05] MEDS ORDERED: NALT50TA5 PO (17:22)
[2024-10-05] MEDS ORDERED: LISI5TAB22 PO (17:22)
[2024-10-05] MEDS ORDERED: NICO-631 TD (17:33)
--- NOTE | 2024-10-05 18:17 | PROGRESS NOTE ---
Progress Note Cardiology Providers to CC ~ Subjective Subjective Patient is known to me from her last admission. Please see my previous note September 24, 2024. She presented again with non specific chest pain. Believes that her medications were messed up. In review of her medication list she is onto SGLT2 inhibitors including Jardiance and Farxiga. She is on what appears to be guideline directed medical therapy for heart failure. Has had some low blood pressures. Reports continued shortness for breath and dyspnea on exertion. Has had some improvement in symptoms. Reports significant weight loss Objective Result Diagram: 10/05/2445 10/05/2445 Objective General: Awake, alert, oriented. No apparent distress Neck: Supple. Normal range of motion. No JVD Respiratory: Lungs are clear to auscultation bilaterally. No respiratory distress. Chest: Normal shape and size. No accessory muscle use. Cardiovascular: Regular rate and rhythm. S1-S2. No murmur, gallop, rub. Gastrointestinal: Abdomen is soft. Nontender to palpation. Bowel sounds present. Extremities: No lower extremity edema, cyanosis or clubbing. Neurologic: Alert and oriented x4. Nonfocal Psychiatric: Normal mood and affect. Skin: Normal color. Warm and dry. Coagulation Studies Laboratory Tests Test 10/04/24 11:48 Prothrombin Time 10.3 SECONDS (9.0-12.0) INR International Normalized Ratio 1.0 INR Activated Partial Thromboplast Time 27 SECONDS (22-32) D-Dimer 1.06 MG/L FEU (0-0.50) H D-Dimer Comment Coagulation Comments Problem\Assessment\Plan Additional Plan Severe right ventricular failure Suspected pulmonary arterial hypertension, group one secondary to methamphetamine use TTE demonstrates preserved LVEF. D shaped septum. Severe RV dilation with reduced function. RVSP 79 mm of mercury. Moderate TR. --primary care his graciously referred her to PH center. --restarted on sildenafil. will f/up for further testing/mgt. --continue Lasix to keep euvolemic. NSTEMI [place] type 2 secondary to severe right-sided heart failure --previous stress test last admission read as reversibility to the septal and anterior argueta. There is possibly some septal reversibility however over estimated due to massive RV. Continue with medical management. May continue beta-lois but if she remains hypotensive can consider stopping this as well as her lisinopril as below. Hypertension --on lisinopril 10 mg daily, given that she is not on sildenafil she may need this decrease/stopped. Diabetes mellitus Hemoglobin A1c 6.7 --started on SGLT2 inhibitor. She is concerned about low blood sugar. Encouraged to follow up with primary care and management per hospitalist team. Tobacco use disorder Patient encouraged to quit Methamphetamine use disorder Patient strongly encouraged to quit. Risks of continued methamphetamine use were reviewed up to and including . Case reviewed with Dr. Jesus Perry. In agreement with medical management and outpatient follow up. For any further cardiology needs please contact Dr. Perry directly. Supervising Physician: RUSTY De Anda NP Oct 05, 2024 18:17
[2024-10-06] MEDS: ondansetron/PF 4mg/2ml inj IV PRN (00:51)
[2024-10-06 02:00] VITALS: BP 99/61; PULSE 61; RESP 14; TEMP 97.3; O2SAT 94
[2024-10-06 05:45] LABS: MEAN PLATELET VOLUME 7.7 FL (7.4-10.4); RED CELL DISTRIBUTION WIDTH 14.8 % (11.5-14.5)
[2024-10-06 05:46] LABS: CREATININE 1.06 MG/DL (0.40-0.90); PHOSPHORUS 4.6 MG/DL (2.3-4.5); TOTAL CARBON DIOXIDE 28.1 MMOL/L (24-32); eCRCL 74 ML/MIN; eGFR 58 ML/MIN
[2024-10-06 06:00] VITALS: BP 107/64; PULSE 63; RESP 14; TEMP 97.5; O2SAT 97
[2024-10-06 08:00] VITALS: RESP 14; O2SAT 63
[2024-10-06 11:00] VITALS: BP 107/65; PULSE 73; RESP 18; TEMP 97.4; O2SAT 91
[2024-10-06] MEDS ORDERED: hydrALAZINE 20mg/ml inj. IV ONE (12:05)
[2024-10-06 15:00] VITALS: BP 120/67; PULSE 78; RESP 14; TEMP 97.8; O2SAT 96
[2024-10-06] MEDS ORDERED: FURO-149 PO (16:03)
[2024-10-06] MEDS ORDERED: CARV3.122 PO (16:05)
[2024-10-06 16:13] VITALS: BP 106/70; RESP 16; O2SAT 97
--- NOTE | 2024-10-06 18:02 | DISCHARGE SUMMARY-Residence ---
Discharge Summary Providers to CC Resident Creating Document: DAVIDJULICynthia HOWARD, RES ~ Discharge Summary Admission Diagnosis: CHF/Pul HTN Hospital Course DATE OF ADMISSION: DATE OF DISCHARGE: Discharge Summary: Vital Signs Date Time Temp Pulse Resp B/P (MAP) Pulse Ox O2 Delivery O2 Flow Rate FiO2 10/06/24 16:13 16 106/70 (82) 97 Room Air 10/06/24 15:00 97.8 78 2.0 10/04/24 19:30 28 Laboratory Tests Test 10/04/24 19:28 10/04/24 21:13 10/05/24 01:27 10/05/24 05:45 Urine Specimen Description Cln catch midstream Urine Color Yellow Urine Clarity Clear Urine pH 6.0 Urine Specific Melvin <=1.005 Urine Protein Negative mg/dl Urine Glucose (UA) 250 mg/dl Urine Ketones Negative mg/dl Urine Occult Blood Trace-intact Urine Nitrite Negative Urine Bilirubin Negative Urine Urobilinogen 0.2 E.U/dL Urine Leukocyte Esterase Negative Urine RBC 0-2 /HPF Urine WBC 0-4 /HPF Urine Squamous Epithelial Cells Few /LPF Urine Bacteria None seen /HPF Urine Culture Indicated Not ind Volume Urine Centrifuged 10 ml Urine HCG, Qualitative Negative Urine Comment Urine Opiates Screen Negative Urine Methadone Screen Negative Urine Fentanyl Screen Negative Urine Barbiturates Screen Negative Urine Phencyclidine Screen Negative Urine Amphetamines Screen Negative Urine Benzodiazepines Screen Negative Urine Cocaine Screen Negative Urine Cannabinoids Screen Negative Drug Screen Comment Troponin I High Sensitivity 333 ng/L Troponin I High Sens Percent Delta 6 % Troponin I Hi Sens Absolute Change -23 ng/L Glucometer 84 mg/dl White Blood Count 6.3 X10'3 Red Blood Count 5.49 X10'6 Hemoglobin 16.6 g/dl Hematocrit 49.2 % Mean Corpuscular Volume 89.5 FL Mean Corpuscular Hemoglobin 30.3 PG Mean Corpuscular Hemoglobin Concent 33.8 g/dL Red Cell Distribution Width 14.9 % Platelet Count 254 X10'3 Mean Platelet Volume 7.7 FL Neutrophils (%) (Auto) 58.2 % Lymphocytes (%) (Auto) 29.1 % Monocytes (%) (Auto) 10.7 % Eosinophils (%) (Auto) 0.9 % Basophils (%) (Auto) 1.1 % Neutrophils # (Auto) 3.6 X10'3 Lymphocytes # (Auto) 1.8 X10'3 Monocytes # (Auto) 0.7 X10'3 Eosinophils # (Auto) 0.1 X10'3 Basophils # (Auto) 0.1 X10'3 CBC Comment Sodium Level 133 MMOL/L Potassium Level 4.4 MMOL/L Chloride Level 97 MMOL/L Carbon Dioxide Level 27.6 MMOL/L Anion Gap 8 Blood Urea Nitrogen 34 MG/DL Creatinine 1.09 MG/DL Estimated GFR/1.73 m2 56 ML/MIN BUN/Creatinine Ratio 31.2 Glucose Level 94 MG/DL Calcium Level 9.2 MG/DL Phosphorus Level 4.4 MG/DL Magnesium Level 2.6 MG/DL Albumin 3.7 G/DL Chemistry Comments Test 10/05/24 07:52 10/05/24 13:03 10/05/24 13:23 10/05/24 17:57 Glucometer 143 mg/dl 67 mg/dl 79 mg/dl 129 mg/dl Test 10/06/24 00:47 10/06/24 04:54 Glucometer 136 mg/dl White Blood Count 5.5 X10'3 Red Blood Count 5.56 X10'6 Hemoglobin 16.9 g/dl Hematocrit 49.6 % Mean Corpuscular Volume 89.2 FL Mean Corpuscular Hemoglobin 30.4 PG Mean Corpuscular Hemoglobin Concent 34.0 g/dL Red Cell Distribution Width 14.8 % Platelet Count 236 X10'3 Mean Platelet Volume 7.7 FL Neutrophils (%) (Auto) 52.7 % Lymphocytes (%) (Auto) 35.4 % Monocytes (%) (Auto) 9.9 % Eosinophils (%) (Auto) 1.4 % Basophils (%) (Auto) 0.6 % Neutrophils # (Auto) 2.9 X10'3 Lymphocytes # (Auto) 1.9 X10'3 Monocytes # (Auto) 0.5 X10'3 Eosinophils # (Auto) 0.1 X10'3 Basophils # (Auto) 0.0 X10'3 CBC Comment Sodium Level 130 MMOL/L Potassium Level 4.2 MMOL/L Chloride Level 96 MMOL/L Carbon Dioxide Level 28.1 MMOL/L Anion Gap 6 Blood Urea Nitrogen 37 MG/DL Creatinine 1.06 MG/DL Estimated GFR/1.73 m2 58 ML/MIN BUN/Creatinine Ratio 34.9 Glucose Level 114 MG/DL Calcium Level 9.1 MG/DL Phosphorus Level 4.6 MG/DL Magnesium Level 2.2 MG/DL Albumin 3.5 G/DL Free Thyroxine 0.94 NG/DL Chemistry Comments Date of Service: Oct 06, 2024 Billing Provider: ILANA POLLOCK MD,JULI HOWARD, RES Oct 06, 2024 18:02
== END 2024-10-06 17:55 | disposition home or self-care (01) | DRG 133 ==
LOC: ER 11:19 → ED HOLD 16:30 → EDBEDREQ 21:04 → PCU 3S 23:38
PROVIDERS: ADMIT Family Medicine; ATTEND Family Medicine
DX: J96.21 Acute and chronic respiratory failure with hypoxia (principal); I21.A1 Myocardial infarction type 2; I50.33 Acute on chronic diastolic (congestive) heart failure; I27.21 Secondary pulmonary arterial hypertension; I11.0 Hypertensive heart disease with heart failure; J44.1 Chronic obstructive pulmonary disease with (acute) exacerbation; F15.90 Other stimulant use, unspecified, uncomplicated; I16.0 Hypertensive urgency; E11.9 Type 2 diabetes mellitus without complications; I42.7 Cardiomyopathy due to drug and external agent; E03.9 Hypothyroidism, unspecified; F17.210 Nicotine dependence, cigarettes, uncomplicated; Z91.148 Patient's other noncompliance with medication regimen for other reason
CPT/HCPCS: 36415; 71045; 80048; 80053; 80305; 80320; 81001; 81025; 82948; 83605; 83735; 83880; 84100; 84439; 84443; 84484; 85025; 85379; 85610; 85651; 85730; 86140; 87040; 87081; 93005; 94760; 96374; 96375; 99285; G0378; J1644; J1938; J2060; J2405; Q0177

== ENCOUNTER 2024-11-30 17:53 | Inpatient (IN) | payer MEDICAID ==
[~2024-11-30] VITALS: Ht 175.3 cm; Wt 81.0 kg
[~2024-11-30 17:53] MED LIST changes: +CARV3.122 PO; +HYDR50TA65 PO; -LISI10TA27 PO; -METF-1203 PO; -METO-395 PO; +NALT50TA5 PO; +NICO-631 TD; -SPIR25TA5 PO
--- NOTE | 2024-11-30 18:11 | Physician Documentation ---
History of Present Illness General Chief Complaint: See Chief Complaint Stated Complaint: DOCTOR REFERAL Time Seen by MD: 18:08 Primary Medical Doctor: bette pond History of Present Illness Initial Comments This is a 39-year-old female with a history of pulmonary artery hypertension who was directed by her outside sales presented to the emergency department due to increased weight gain recently, patient reports that is is maxed out on Lasix and her outside sales would like her to be assessed before increasing her Lasix dose. Additional note by Monico Johns DO: I took over the care of this patient from previous physician. I reviewed any previous notes available, obtain my own history, review of systems and physical examination was performed by myself. This is a 39-year-old female with a family history of congestive heart failure, personal history of pulmonary arterial hypotension, remote history of methamphetamine abuse, three months spleen, presents for evaluation of weight ga in. She is followed by outside sales at [facility]. She normally takes Lasix 40 b.i.d.. She sometimes takes 80 b.i.d. when she goes over 3 lb of weight gain and today she was six so she took extra dose. At the time of my examination she complains of left-sided chest pain, shortness of breath. She did not have to increase her baseline oxygen. Her oxygen and varies as needed of from 2 L to 6 L. no particular palliating or aggravating factors were elicited with the patient. Denies any fevers or chills. No concern for tobacco or alcohol use. Medication Reconciliation Allergies: Coded Allergies: Penicillins (Verified Allergy, Unknown, Rash, 11/30/24) Scheduled Aspirin (Aspirin), 1 TAB PO DAILY Atorvastatin Calcium (Atorvastatin Calcium), 20 MG PO DAILY Carvedilol (Carvedilol), 0.5 TAB PO Q12H Empagliflozin (Jardiance), 1 TAB PO DAILY Furosemide (Lasix), 1 TAB PO DAILY Hydroxyzine HCl (Hydroxyzine HCl), 1 TAB PO HS, (Reported) Lactobacillus Rhamnosus (Culturelle), 1 CAP PO BID Naltrexone Hcl (Naltrexone Hcl), 1 TAB PO DAILY, (Reported) Nicotine 14 MG Patch* (Habitrol 14 MG Patch*), 1 PATCH TD DAILY, (Reported) Sildenafil Citrate (Sildenafil), 1 TAB PO Q8H Past Medical History Past Medical History: No Pertinent History, Bipolar Past Surgical History: no surgical history Smoking: Cigarettes Alcohol Use: Sober Drug Use: methamphetamine Lives with: Other Lives In: Other Occupation: unemployed Review of Systems ROS As stated above in the HPI, otherwise all systems are reviewed and negative. Physical Exam Physical Exam Vital Signs: Heart Rate: 93, Respiratory Rate: 16, BP: 113/85, Pulse Oximetry: 98, Weight: 82.500 Oxygen Flow Rate: 0 Physical Exam GENERAL: Awake, alert, oriented, GCS 15, no apparent distress, non-toxic appearing, answers questions, follows commands appropriately. Examined in bed 15. HEENT: Atraumatic, normocephalic, pupils equal, extraocular muscles intact, sclerae anicteric, mucus membranes moist, oropharynx is clear, no stridor. NECK: supple, full active range of motion, trachea midline, no thyromegaly, no lymphadenopathy, no JVD. CARDIOVASCULAR: regular rate/rhythm, no murmurs/gallops/rubs, Pulses are 2+ in all extremities and symmetric. Capillary refill less than 2 seconds. PULMONARY: Nonlabored, good air movement ,no respiratory distress, speaking in full sentences, coarse breath bilaterally, no wheezing, no ronchi, no rales, no accessory muscle use. GASTROINTESTINAL: Soft, non-tender, non-distended, normal active bowel sounds, no organomegaly, no pulsatile masses, no CVA tenderness. NEUROLOGIC: Lucid with normal mental status. Normal facial symmetry. Moves all extremities symmetrically and with purpose. No truncal ataxia. Speech is fluid without evidence of dysarthria or aphasia, no focal deficits appreciated. MUSCULOSKELETAL: There is full range of motion of all extremities. There is no joint pain or joint swelling or joint erythema. There is no muscle pain or tenderness or swelling. EXTREMITIES: warm, well-perfused, no cyanosis, no clubbing, no edema, no acute deformities. Skin: warm, dry, no rashes or lesions, no jaundice, no petechiae orpurpura. No ecchymosis. PSYCHIATRIC: Normal affect, normal insight, normal concentration. Focused exam: [] Progress Results/Orders Results/Orders Vital Signs 11/30/24 11/30/24 11/30/24 11/30/24 18:04 19:16 19:17 19:19 Pulse 93 94 Resp 16 14 B/P (MAP) 113/85 119/79 (92) Pulse Ox 98 99 99 O2 Delivery Nasal Cannula* O2 Flow Rate 0 1.0 1 FiO2 N/A Laboratory Tests Test 11/30/24 18:20 11/30/24 20:38 White Blood Count 6.4 Red Blood Count 4.67 Hemoglobin 14.1 Hematocrit 40.8 Mean Corpuscular Volume 87.3 Mean Corpuscular Hemoglobin 30.2 Mean Corpuscular Hemoglobin Concent 34.6 Red Cell Distribution Width 13.8 Platelet Count 271 Mean Platelet Volume 6.9 L Neutrophils (%) (Auto) 50.9 Lymphocytes (%) (Auto) 34.3 Monocytes (%) (Auto) 9.8 Eosinophils (%) (Auto) 4.1 Basophils (%) (Auto) 0.9 Neutrophils # (Auto) 3.3 Lymphocytes # (Auto) 2.2 Monocytes # (Auto) 0.6 Eosinophils # (Auto) 0.3 Basophils # (Auto) 0.1 CBC Comment Sodium Level 138 Potassium Level 3.9 Chloride Level 101 Carbon Dioxide Level 28.3 Anion Gap 9 Blood Urea Nitrogen 28 H Creatinine 1.10 H Estimated GFR/1.73 m2 55 BUN/Creatinine Ratio 25.5 H Glucose Level 128 H Calcium Level 9.1 Total Bilirubin 2.2 H Aspartate Amino Transf (AST/SGOT) 36 Alanine Aminotransferase (ALT/SGPT) 54 Alkaline Phosphatase 171 H Troponin I High Sensitivity 139 *H 137 *H Pro-B-Type Natriuretic Peptide 1263 H Total Protein 7.9 Albumin 4.0 Globulin 3.9 Albumin/Globulin Ratio 1.0 L Chemistry Comments Troponin I High Sens Percent Delta 1 Troponin I Hi Sens Absolute Change -2 EKG/XRAY/CT/US/VASC/MRI EKG : Additional Comment EKG was obtained and interpreted by myself shows sinus rhythm, rate of 100, normal MT interval, borderline QRS with a incomplete right bundle, no QT prolongation, right axis, no STEMI, diffuse ST depressions with T-wave inversions. This is unchanged from the EKG that patient showed me on her cell phone that was obtain a month ago. Medical Decision Making Findings MSE performed in triage and patient returned to ED lobby by nursing staff to await available ED room Additional note by Monico Johns DO: I took over the care of this patient from previous physician. I reviewed any previous notes available, obtain my own history, review of systems and physical examination was performed by myself. Facility Status: ED Holds, E process The plan was discussed with the patient, who demonstrates clear understanding of the plan and is in agreement with the plan unless otherwise noted in the chart. All questions have been answered, all concerns were addressed unless otherwise documented. I was available throughout their ED stay for frequent reassessment and questions. Differential Diagnoses (considered and possible or likely): [Differential diagnosis considered includes chest wall pain, pleurisy, pneumonia, pulmonary embolus, GERD, esophagitis, gastritis, anxiety, stress reaction, costochondritis, acute coronary syndrome, aortic dissection, pericarditis, myocarditis, or pneumothorax.] ??Differential Diagnoses (considered and unlikely, not requiring evaluation currently): [Aortic/great vessels dissection was considered but it is unlikely based on absence of ripping, tearing, migratory chest pain, absence of syncope or focal neurologic deficits, physical examination indicating equal and sy mmetric pulses.] MDM Data Please see [facility] for the following: Independent Historians and external Records Review. Historian: [Patient] Independent Historians: ?[Record review] Medication Management: [Reviewed medication list] Social History and determinants: [Reviewed] Please see the body of the note for the following: Any independent interpretations of ECG, imaging studies. All vitals signs/haemodynamics, ordered tests were independently reviewed and interpreted by myself. 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 History: [Regular Rate, Regular rhythm, no ectopy, NSR] reviewed and interpreted by me] Additionally notably showing: [Hemodynamics reviewed. She is not febrile, not tachycardic, no evidence of hypotension, no respiratory distress on her baseline oxygen. CBC is normal. Metabolic panel is unremarkable. Slightly elevated bilirubin noted. Her troponins are elevated.] Tests considered but not ordered include: [Further cardiac diagnostic studies can be done on an inpatient basis] Social Determinants of Health Impact: Patient was evaluated in [facility] [place], [facility] [place] healthcare due to below par ratio of patient to medical providers. [] Comorbid Conditions Impacting Present Evaluation and Care/Treatment: [Known CHF, known positive stress test in the past] Management Discussions with other Healthcare Providers: [Hospitalist regarding admission] Treatment and Disposition Medication Management (Given or considered): [Lasix]. See EMR for details Consideration for Hospitalization/Escalation/Deescalation of Care: Admission for observation has been considered, and appears to be necessary for further workup of her elevated troponin. ?ED Course:?[No clinical deterioration] ?Shared decision making:?[] Code status:?FULL Please see the full Electronic Medical Record for full details of nursing documentation, medications list, other records of complete past medical history and conditions, vital signs, laboratory studies, and any radiologic study interpretations by radiologists. Portions of this note were completed using Fire[employer] dictation software and as a result there may exist minor errors in spelling. I have reviewed elements of past family and social history and agree as included in note. Departure Disposition: 09 ADMITTED INPATIENT Impression: Primary Impression: Acute exacerbation of congestive heart failure Additional Impressions: Elevated troponin Positive cardiac stress test Condition: Stable Referrals: NO PRIMARY CARE PROVIDER (PCP) Signature Scribe Signature: No scribe Attestation: This note accurately reflects clinical decisions, work performed by myself, DO FACUNDO Siddiqui PAUL W FNP Nov 30, 2024 18:11 MONICO JOHNS DO Nov 30, 2024 22:06
--- NOTE | 2024-11-30 18:13 | ELECTROCARDIOGRAPH REPORT ---
[facility] Test Date: 2024-11-30 Test Time: 18:10:22 Pat Name: ALDAIR ESCALERA Department: EMERGENCY ROOM Room: Gender: F Etiquette Coach: ALTA : 1985 Requested By: JOHN LOREDO Order Number: [id number] Reading MD: Measurements Intervals [place] Rate: 100 P: 58 AL: 192 QRS: 102 QRSD: 118 T: -57 QT: 376 QTc: 485 Interpretive Statements Sinus tachycardia Incomplete right bundle branch block Baseline wander in lead(s) V2 Please click the below link to view image of tracing.
[2024-11-30 18:35] LABS: MEAN PLATELET VOLUME 6.9 FL (7.4-10.4); RED CELL DISTRIBUTION WIDTH 13.8 % (11.5-14.5)
--- NOTE | 2024-11-30 18:46 | RADIOLOGY REPORT ---
CHEST RADIOGRAPH Indication: CP Technique: Single frontal view of the chest was obtained Comparison: DI CHEST,SINGLE VIEW on DOS: 10/22/24, DI CHEST,SINGLE VIEW on DOS: 10/04/24, DI CHEST,SING LE VIEW on DOS: 09/25/24, DI CHEST,SINGLE VIEW on DOS: 09/23/24, DI CHEST,SINGLE VIEW on DOS: 09/11/24 FINDINGS: Lines and Tubes: None Lungs: No focal consolidation. Pleura: No effusion. No pneumothorax. Cardiomediastinal contours: Unremarkable Bones: left lower posterior ribs healing fractures. IMPRESSION: 1. No radiographic evidence of acute cardiopulmonary disease.
[2024-11-30 18:58] LABS: CREATININE 1.10 MG/DL (0.40-0.90); TOTAL CARBON DIOXIDE 28.3 MMOL/L (24-32); eCRCL 72 ML/MIN; eGFR 55 ML/MIN
[2024-11-30 19:07] LABS: PRO BRAIN NATRIURETIC PEPTIDE 1263 PG/ML (0-125)
[2024-11-30] MEDS ORDERED: potassium Cl 40MEQ/1/2NS 520ml 520 ML IV PRN (23:30)
[2024-11-30] MEDS ORDERED: magnesium sulf-water 2g/50mL 50 ML IV PRN (23:30)
[2024-11-30] MEDS ORDERED: magnesium hydroxide 30ml (MOM) UD suspension PO PRN (23:30)
[2024-11-30] MEDS ORDERED: magnesium sulf-water 4G/100mL 100 ML IV PRN (23:30)
[2024-11-30] MEDS ORDERED: magnesium Cl slow-release 64mg tablet PO PRN (23:30)
[2024-11-30] MEDS ORDERED: ondansetron/PF 4mg/2ml inj IV PRN (23:30)
[2024-11-30] MEDS ORDERED: potassium Cl 20 mEq SR tablet PO PRN (23:30)
[2024-11-30] MEDS ORDERED: HYDROcodone/acetaminophen 5mg/325mg tablet PO PRN (23:30)
[2024-11-30] MEDS ORDERED: mag hydrox/Alum hydrox/simeth 30ml oral suspension PO PRN (23:30)
[2024-11-30] MEDS ORDERED: ipratropium/albuterol 3ml nebule NEB PRN (23:55)
[2024-12-01] VITALS (10 sets, daily range): BP systolic 95–119; BP diastolic 62–68; PULSE 70–111; RESP 13–19; TEMP 97.4–98.1; O2SAT 94–98
[2024-12-01] MEDS: furosemide 10 MG/1 ML 10ml inj IV ONE (01:02)
[2024-12-01 03:22] LABS: MEAN PLATELET VOLUME 7.2 FL (7.4-10.4); RED CELL DISTRIBUTION WIDTH 13.9 % (11.5-14.5)
[2024-12-01 03:42] LABS: CREATININE 0.85 MG/DL (0.40-0.90); TOTAL CARBON DIOXIDE 28.8 MMOL/L (24-32); eCRCL 93 ML/MIN; eGFR 74 ML/MIN
--- NOTE | 2024-12-01 05:00 | HISTORY AND PHYSICAL-Residence ---
History & Physical Providers to CC Resident Creating Document: MICHI ROGERS, RES ~ History of Present Illness Primary Medical Doctor: bette pond Reason for Admit\Complaint: Weight gain 6 lb in 10 days, shortness of breath, chest pain History of Present Illness 39-year-old female past medical history of CHF, diabetes mellitus, pulmonary arterial hypertension presented to the ED after she was told by her move coordinator at [facility] over one appointment come to the ED and get evaluated. Patient reports that she gained 6 lb over the last 10 days and has a been having worsening shortness of breaths, associated with orthopnea and paroxysmal nocturnal dyspnea with the last one day. Patient also reports chest pain that has been present since a long time but has been more constant and more severe over the past seven days. She stated that the chest pain is in the center of her chest and occasionally radiates to the left arm. She describes the chest pain as sharp pain. Reported that the chest pain does not have any specific triggers and can also occur when she is resting. Patient denied any recent fever, chills. She also reports chronic productive cough that has not changed. Patient stated that initially she used to have swelling of her legs whenever she accumulated fluid secondary to her pulmonary hypertension and right-sided heart failure but currently is noticing the fluid to be accumulating more in her belly and this time has noticed significant distention of her belly with the last seven days. The patient stated that she has a history of methamphetamine abuse due to which she developed congestive heart failure and is currently being evaluated at [facility] by (cardiology) and (pulmonology) for pulmonary arterial hypertension leading to right heart failure. The patient also reported that she has a right heart catheterization scheduled next week but her move coordinator wanted her to get evaluated today due to acute changes in her condition. The patient states that she has been abstinent of any recreational drugs for the past three months. She is currently living at [facility]. Reported that her smoking has a increased recently and has been smoking at least one pack of cigarettes every day. The patient denied any other acute concerns or complaints. She denied any headaches, confusion, dizziness, palpitations, nausea, vomiting, diarrhea, constipation. Allergies: Coded Allergies: Penicillins (Verified Allergy, Unknown, Rash, 11/30/24) Home Medications Home Medications Active Carvedilol 3.125 Mg Tablet 0.5 Tab PO Q12H 30 Days Do not take the medication if blood pressure is less than 90/60 mmHg Lasix (Furosemide) 40 Mg Tablet 1 Tab PO DAILY 30 Days Do not take if blood pressure is less than 90/60 mmHg Sildenafil (Sildenafil Citrate) 20 Mg Tablet 1 Tab PO Q8H 30 Days Atorvastatin Calcium 20 Mg Tablet 20 Mg PO DAILY 30 Days Aspirin 81 Mg Tab.chew 1 Tab PO DAILY 30 Days Jardiance (Empagliflozin) 10 Mg Tablet 1 Tab PO DAILY 30 Days Culturelle (Lactobacillus Rhamnosus) 10 Billion Cell Capsule 1 Cap PO BID 30 Days Reported Habitrol 14 MG Patch* (Nicotine) 1 Each Patch.td24 1 Patch TD DAILY Naltrexone Hcl 50 Mg Tablet 1 Tab PO DAILY Hydroxyzine HCl 50 Mg Tablet 1 Tab PO HS Past Medical History Past Medical History Methamphetamine induced cardiomyopathy Pulmonary arterial hypertension Right-sided heart failure Diabetes mellitus Past Surgical History Surgical History Comment Drain/wound VAC in her left arm Family History Family History: Blood clots MOTHER FH: breast cancer MOTHER FH: heart disease FATHER MOTHER FH: stroke FATHER Past Social History Social History Comment Currently smoking a pack of cigarettes per day. Has a history of methamphetamine use. Quit alcohol eight years ago. Living at [facility] Smoking: Cigarettes Alcohol Use: Sober Drug Use: Methamphetamine Lives with: Other Lives In: Other Occupation: unemployed ROS ROS As stated above in the HPI, otherwise all systems are reviewed and negative. Exam Vitals: Vital Signs Date Time Temp Pulse Resp B/P (MAP) Pulse Ox O2 Delivery O2 Flow Rate FiO2 12/01/24 00:47 111 15 98 Room Air* 0 21 11/30/24 19:17 General: General: Awake and Alert, no acute distress. HEENT: Conjunctiva pink, Sclera clear, Mucus Membranes moist. Neck: Supple without masses and tenderness. Resp: Unlabored. MIld Bibasilar crackles heard. Heart: Regular Rate and rhythm, normal S1 and S2 without murmur, rub or gallop. Abdomen: Soft, distended, fluid wave present. Extremities: 1+ edema in bilateral lower extremities. Skin: Warm and Dry. Neurology: No focal motor or sensory deficits. Musculoskeletal: No restricted range motion. No deformities. Psychiatric: Normal mood and affect. Diagnostic Data Last Recorded Lab Results: 12/01/24 0248 12/01/24 0248 Advance Care Planning Advanced Care planning: Add on additional 30 min Additional Plan Acute on chronic hypoxemic respiratory failure Acute congestive heart failure Pulmonary arterial hypertension leading to right-sided heart failure Meth induced cardiomyopathy Patient reported that she gained 6 lb of weight in the last 10 days. Reports chronic chest pain. EKG negative for any acute ST segment changes. EKG when compared to the previous EKGs was similar without any changes. Patient has Troponinemia most likely secondary to type 2 AK due to demand ischemia. Continue to trend the patient's troponins. Patient also has a history of positive stress test during her previous admission. Per the move coordinator team of Dr. Perry it is most likely due to stress from the right heart failure. Consider consultation of a were on-call move coordinator. Started the patient on IV Lasix 40 b.i.d. We will restart the patient on GDMT with carvedilol 3.125 mg once med reconciliation is done. Hold Jardiance as the patient reports that the move coordinator at [facility] once her Jardiance to be held one week prior to her right heart catheterization which is scheduled next Tuesday. Strict input and output monitoring. Daily weight. Fluid restriction to 1.5 L per day. Follow up with a repeat echocardiogram. Last echo was on 09/12/2024. Ascites Due to right heart failure Start the patient on IV Lasix 40 b.i.d. Strict input and output monitoring. Fluid restriction as mentioned above. Follow up with the ultrasound of the abdomen. Pulmonary arterial hypertension Start the patient on home dose of sildenafil. Patient has a right heart catheterization scheduled at [facility] on Tuesday next week. Her supervisor cured meats is Dr. Misael Lara. History of substance abuse Tobacco use disorder Patient reports that she has a history of recreational drug use such as methamphetamine. Has been clean since the past three months. He is staying at a recovery home. Currently smoking a pack of cigarettes every day. Recommended lifestyle modification and reiterated the importance of quitting smoking. TRISTIAN Most likely secondary to renal tubular stasis. Patient's TRISTIAN has improved. Follow up with renal function test closely. Diabetes mellitus Started the patient on hyperglycemia/hypoglycemia protocol. Held Jardiance as recommended by her move coordinator at [facility]. CODE STATUS: Limited-no intubation DVT prophylaxis: Heparin 5000 units subQ b.i.d. GI prophylaxis: None Diet: Heart healthy diet Disposition: Continue medical management. Consider cardiology consultation in view of her advanced pulmonary arterial hypertension and right-sided heart failure. Awaiting med reconciliation. Michi Rogers MD Internal Medicine Resident, PGY-3 I saw and evaluated and discussed this patient with the resident team Agree with assessment and plan as documented Date of Service: Dec 01, 2024 Billing Provider: BRANDON MAGDALENO MD, SURYA PRATIK, [facility] Dec 01, 2024 05:00 BRANDON MAGDALENO MD Dec 01, 2024 09:20
[2024-12-01] MEDS ORDERED: dextrose 50%-water 50ml dispensing syringe IV PRN ×2 (05:20)
[2024-12-01] MEDS ORDERED: glucagon, human recombinant 1mg kit SUBCUT PRN (05:20)
[2024-12-01] MEDS ORDERED: DEXTROSE 15 GM of carb/4 tabs (each vial/BOTTLE has 4 tablets) PO PRN ×2 (05:20)
[2024-12-01] MEDS: K and/or MAG REPLACEMENT MC SCH (06:45)
[2024-12-01] MEDS: INSULIN LISPRO 100 UNIT/ML INSULN.PEN MULTI-DOSE SQ SCH (07:00)
[2024-12-01] MEDS: docusate sod 100mg capsule PO SCH (07:29)
[2024-12-01] MEDS: heparin, porcine 5000 units/ml vial SQ SCH (07:29)
[2024-12-01] MEDS: furosemide 10 MG/1 ML 10ml inj IV SCH ×2 (07:29→16:06)
[2024-12-01 08:02] LABS: LEUKOCYTE ESTERASE ,URINE NEGATIVE (Neg); NITRITES, URINE NEGATIVE (Neg); OCCULT BLOOD,URINE NEGATIVE (Neg)
[2024-12-01 08:18] LABS: UA COLLECTION TYPE CLN CATCH MIDSTREAM
[2024-12-01 08:22] LABS: URINE AMPHETAMINE SCREEN NEGATIVE (Neg); URINE BARBITUATE SCREEN NEGATIVE (Neg); URINE BENZODIAZEPINES SCREEN NEGATIVE (Neg); URINE CANNABINOID SCREEN NEGATIVE (Neg); URINE COCAINE SCREEN NEGATIVE (Neg); URINE METHADONE SCREEN NEGATIVE (Neg); URINE OPIATE SCREEN NEGATIVE (Neg); URINE PHENCYCLIDINE SCREEN NEGATIVE (Neg)
--- NOTE | 2024-12-01 09:59 | CARDIOLOGY REPORT ---
APPROVED REPORT EXAM: Limited 2D, Doppler, and color-flow Echocardiogram. Patient Location: ER 15 Blood Pressure: 110/77 mmHg Heart Rate: 103 bpm Rhythm: Sinus with incomplete RBBB Indications Congestive Heart Failure Known PA Hypertension Right Sided HF Elevated Troponins (139, 137) ProBNP (1263) Spanish Professor: Dr. Ashford, [facility] Previous echo: 09/12/2024 [facility] EF:65-70%, sev RV, sev RA, nor LA 2D Dimensions RVDd 4.6 cm LA Diam3.0 cm RA Minor4.6 cmIVC 15.16 mm CO 2.4 L/min M-Mode Dimensions IVSd 1.04 (0.7-1.1cm) LVDd 3.60 (4.0-5.6cm) PWd 1.06 (0.7-1.1cm) IVSs 1.35 cm LVDs 2.26 (2.0-3.8cm) FS (%) 36 % PWs 1.19 cm ESV(Teich) 14.8 ml LVEF(%) 67 (>50%) Tricuspid Valve TR P. Velocity 370 cm/s RAP ESTIMATE 10 mmHg TR Peak Gr. 55 mmHg RVSP 65 mmHg LEFT VENTRICLE Reduced LV size with normal wall thickness. Overall systolic function is normal. Flattened septum con sistent with right ventricular volume and pressure overload. Overall LVEF is 65-70%. RIGHT VENTRICLE Right ventricle is severely dilated with reduced systolic function. Estimated PA systolic pressure is 65 mmHg. ATRIA The left atrium size is normal. AORTIC VALVE Aortic valve is grossly normal in structure. MITRAL VALVE Mitral valve is grossly normal in structure. TRICUSPID VALVE TV appears mildly thickened with mild to moderate regurgitation. PERICARDIUM Normal pericardium. No pericardial effusion seen. Other Information Study Quality: Adequate Conclusion Overall LVEF is 65-70%. Reduced LV size with normal wall thickness. Overall systolic function is normal. Flattened septum con sistent with right ventricular volume and pressure overload. Right ventricle is severely dilated with reduced systolic function. Estimated PA systolic pressure is 65 mmHg. Aortic valve is grossly normal in structure. Mitral valve is grossly normal in structure. TV appears mildly thickened with mild to moderate regurgitation. Normal pericardium. No pericardial effusion seen.
--- NOTE | 2024-12-01 15:09 | PROGRESS NOTE- Residence ---
Progress Note - Resident Providers to CC Resident Creating Document: PAULA SUBRAMANIAN RES ~ Antibiotic Timeout Antibiotic Ordered?: No Subjective Patient was seen and examined at bedside. She is feeling tired, complains of occasional chest pain and shortness of breath with exertion. No palpitation, dizziness or lightheadedness. Objective Vital Signs Date Time Temp Pulse Resp B/P (MAP) Pulse Ox O2 Delivery O2 Flow Rate FiO2 12/01/24 11:00 97.4 85 13 100/66 (77) 95 Room Air 12/01/24 08:28 2 28 Result Diagram: 12/01/24 0248 12/01/24 0248 General: Awake and Alert, no acute distress. HEENT: Conjunctiva pink, Sclera clear, Mucus Membranes moist. Neck: Supple without masses and tenderness. Resp: Unlabored. Minimal bibasilar crackles noted. Heart: Regular Rate and rhythm, normal S1 and S2 without murmur, rub or gallop. Abdomen: Soft, distended, no organomegaly, no guarding or rebound Extremities: trace edema in bilateral lower extremities. Skin: Warm and Dry. Neurology: No focal motor or sensory deficits. Musculoskeletal: No restricted range motion. No deformities. Psychiatric: Normal mood and affect. Plan Plan Assessment and plan 1. Acute on chronic hypoxemic respiratory failure 2. Acute congestive right heart failure with preserved EF (65-70%) 3. Pulmonary arterial hypertension leading to right-sided heart failure and ascites 4. Type 2 myocardial infarction secondary to acute on chronic CHF 5. Methamphetamine induced cardiomyopathy Assessment Patient reported that she gained 6 lb of weight in the last 10 days. Presence of ascites and lower extremity edema. Reports chronic chest pain. EKG negative for any acute ST segment changes. EKG when compared to the previous EKGs was similar without any changes. Patient has Troponinemia most likely secondary to type 2 CA due to demand ischemia. Continue to trend the patient's troponins. Patient also has a history of positive stress test during her previous admission. Per the extractive metallurgist team of Dr. Perry it is most likely due to stress from the right heart failure. Patient has a scheduled right heart catheterization next Tuesday at [facility] Plan Started the patient on IV Lasix 40 b.i.d. We will restart the patient on GDMT with carvedilol 3.125 mg once med reconciliation is done. Hold Jardiance as the patient reports that the extractive metallurgist at [facility] once her Jardiance to be held one week prior to her right heart catheterization which is scheduled next Tuesday. Strict input and output monitoring. Daily weight. Fluid restriction to 1.5 L per day. Follow up with a repeat echocardiogram. Last echo was on 09/12/2024. 12/01/2024 Echo: Reduced LV size with normal wall thickness. Overall systolic function is normal. Flattened septum consistent with right ventricular volume and pressure overload. Overall LVEF is 65-70%. Right ventricle is severely dilated with reduced systolic function. Estimated PA systolic pressure is 65 mmHg. Med rec still pending Lasix increased to 40mg IV t.i.d Continue sildenafil 6. History of substance abuse 7. Tobacco use disorder Patient reports that she has a history of recreational drug use such as methamphetamine. Has been clean since the past three months. He is staying at a recovery home. Currently smoking a pack of cigarettes every day. Recommended lifestyle modification and reiterated the importance of quitting smoking. 8. Chronic kidney disease stage II Cr 1.1, BUN 28 at admission, GFR 66mL/min/1.73 Cr Improved to 0.85 today 12/01/2024 Follow up with renal function test closely. 9. Type 2 Diabetes mellitus - well controlled A1c 6.7 in August 2024 Started the patient on hyperglycemia/hypoglycemia protocol. Held Jardiance as recommended by her extractive metallurgist at [facility]. CODE STATUS: Limited-no intubation DVT prophylaxis: Heparin 5000 units subQ b.i.d. GI prophylaxis: None Diet: Heart healthy diet Disposition: Continue medical management. Awaiting med reconciliation. Date of Service: Dec 01, 2024 Billing Provider: SHOBHA CUEVA MD, LUCAS, RES Dec 01, 2024 15:09
[2024-12-01] MEDS ORDERED: QUET25TA PO (15:30)
[2024-12-01] MEDS: insulin glargine (Lantus) pen - multi-dose SQ SCH (21:00)
[2024-12-01] MEDS ORDERED: PRAZ1CAP5 PO (21:23)
[2024-12-01] MEDS: insulin glargine (Lantus) pen - multi-dose SQ ONE (21:35)
[2024-12-01] MEDS: nicotine 14mg patch - 24hr TD SCH (21:38)
[2024-12-02 02:00] VITALS: RESP 12; TEMP 97.3
[2024-12-02 02:40] VITALS: BP 102/74; PULSE 73; O2SAT 95
[2024-12-02 07:00] VITALS: BP 99/56; PULSE 70; RESP 12; TEMP 97.4; O2SAT 98
[2024-12-02 07:17] LABS: MEAN PLATELET VOLUME 7.2 FL (7.4-10.4); RED CELL DISTRIBUTION WIDTH 13.8 % (11.5-14.5)
[2024-12-02 07:38] LABS: CREATININE 0.88 MG/DL (0.40-0.90); TOTAL CARBON DIOXIDE 30.1 MMOL/L (24-32); eCRCL 90 ML/MIN; eGFR 72 ML/MIN
[2024-12-02] MEDS: potassium Cl 20 mEq SR tablet PO PRN (09:09)
[2024-12-02] MEDS ORDERED: NALT50TA5 PO (09:12)
[2024-12-02] MEDS ORDERED: LAMO-24 PO (09:19)
[2024-12-02 11:00] VITALS: BP 116/71; PULSE 76; RESP 18; TEMP 97.7; O2SAT 96
[2024-12-02] MEDS ORDERED: FURO-149 PO (13:11)
--- NOTE | 2024-12-02 17:08 | DISCHARGE SUMMARY-Residence ---
Discharge Summary Providers to CC Resident Creating Document: PAULA SUBRAMANIAN RES ~ Discharge Summary Admission Diagnosis: CHF exacerbation, Acute on chronic resp failure Hospital Course DATE OF ADMISSION: 11/30/2024 DATE OF DISCHARGE: 12/02/2024 Chest x-ray: No radiographic evidence of acute cardiopulmonary disease. Echocardiogram: Overall LVEF is 65-70%. Reduced LV size with normal wall thickness. Overall systolic function is normal. Flattened septum consistent with right ventricular volume and pressure overload. Right ventricle is severely dilated with reduced systolic function. Estimated PA systolic pressure is 65 mmHg. Aortic valve is grossly normal in structure. Mitral valve is grossly normal in structure. TV appears mildly thickened with mild to moderate regurgitation. Normal pericardium. No pericardial effusion seen. Laboratory Tests Test 11/30/24 18:20 11/30/24 20:38 12/01/24 02:48 12/01/24 07:15 White Blood Count 6.4 X10'3 7.2 X10'3 Red Blood Count 4.67 X10'6 5.07 X10'6 Hemoglobin 14.1 g/dl 15.3 g/dl Hematocrit 40.8 % 44.1 % Mean Corpuscular Volume 87.3 FL 87.0 FL Mean Corpuscular Hemoglobin 30.2 PG 30.2 PG Mean Corpuscular Hemoglobin Concent 34.6 g/dL 34.7 g/dL Red Cell Distribution Width 13.8 % 13.9 % Platelet Count 271 X10'3 282 X10'3 Mean Platelet Volume 6.9 FL 7.2 FL Neutrophils (%) (Auto) 50.9 % 44.0 % Lymphocytes (%) (Auto) 34.3 % 40.7 % Monocytes (%) (Auto) 9.8 % 10.0 % Eosinophils (%) (Auto) 4.1 % 4.2 % Basophils (%) (Auto) 0.9 % 1.1 % Neutrophils # (Auto) 3.3 X10'3 3.2 X10'3 Lymphocytes # (Auto) 2.2 X10'3 2.9 X10'3 Monocytes # (Auto) 0.6 X10'3 0.7 X10'3 Eosinophils # (Auto) 0.3 X10'3 0.3 X10'3 Basophils # (Auto) 0.1 X10'3 0.1 X10'3 CBC Comment Sodium Level 138 MMOL/L 137 MMOL/L Potassium Level 3.9 MMOL/L 3.7 MMOL/L Chloride Level 101 MMOL/L 100 MMOL/L Carbon Dioxide Level 28.3 MMOL/L 28.8 MMOL/L Anion Gap 9 8 Blood Urea Nitrogen 28 MG/DL 25 MG/DL Creatinine 1.10 MG/DL 0.85 MG/DL Estimated GFR/1.73 m2 55 ML/MIN 74 ML/MIN BUN/Creatinine Ratio 25.5 29.4 Glucose Level 128 MG/DL 121 MG/DL Calcium Level 9.1 MG/DL 9.2 MG/DL Total Bilirubin 2.2 MG/DL 2.3 MG/DL Aspartate Amino Transf (AST/SGOT) 36 U/L 40 U/L Alanine Aminotransferase (ALT/SGPT) 54 U/L 62 U/L Alkaline Phosphatase 171 IU/L 172 IU/L Troponin I High Sensitivity 139 ng/L 137 ng/L 150 ng/L Pro-B-Type Natriuretic Peptide 1263 PG/ML Total Protein 7.9 G/DL 7.6 G/DL Albumin 4.0 G/DL 4.0 G/DL Globulin 3.9 G/DL 3.6 G/DL Albumin/Globulin Ratio 1.0 1.1 Chemistry Comments Troponin I High Sens Percent Delta 1 % 9 % Troponin I Hi Sens Absolute Change -2 ng/L 13 ng/L Hemoglobin A1c 6.5 % Magnesium Level 2.2 MG/DL Urine Specimen Description Cln catch midstream Urine Color Yellow Urine Clarity Clear Urine pH 5.5 Urine Specific [place] 1.020 Urine Protein Negative mg/dl Urine Glucose (UA) 250 mg/dl Urine Ketones Negative mg/dl Urine Occult Blood Negative Urine Nitrite Negative Urine Bilirubin Negative Urine Urobilinogen 0.2 E.U/dL Urine Leukocyte Esterase Negative Urine Culture Indicated Not ind Volume Urine Centrifuged 10 ml Urine Comment Glucometer 150 mg/dl Urine Opiates Screen Negative Urine Methadone Screen Negative Urine Fentanyl Screen Negative Urine Barbiturates Screen Negative Urine Phencyclidine Screen Negative Urine Amphetamines Screen Negative Urine Benzodiazepines Screen Negative Urine Cocaine Screen Negative Urine Cannabinoids Screen Negative Drug Screen Comment Test 12/01/24 07:24 12/01/24 12:24 12/01/24 17:14 12/01/24 20:45 Troponin I High Sensitivity 154 ng/L Troponin I High Sens Percent Delta 2 % Troponin I Hi Sens Absolute Change 4 ng/L Glucometer 91 mg/dl 105 mg/dl 106 mg/dl Test 12/02/24 06:43 12/02/24 13:09 White Blood Count 4.5 X10'3 Red Blood Count 5.02 X10'6 Hemoglobin 15.1 g/dl Hematocrit 43.6 % Mean Corpuscular Volume 87.0 FL Mean Corpuscular Hemoglobin 30.2 PG Mean Corpuscular Hemoglobin Concent 34.7 g/dL Red Cell Distribution Width 13.8 % Platelet Count 287 X10'3 Mean Platelet Volume 7.2 FL Neutrophils (%) (Auto) 41.6 % Lymphocytes (%) (Auto) 42.2 % Monocytes (%) (Auto) 10.1 % Eosinophils (%) (Auto) 5.3 % Basophils (%) (Auto) 0.8 % Neutrophils # (Auto) 1.9 X10'3 Lymphocytes # (Auto) 1.9 X10'3 Monocytes # (Auto) 0.5 X10'3 Eosinophils # (Auto) 0.2 X10'3 Basophils # (Auto) 0.0 X10'3 CBC Comment Sodium Level 136 MMOL/L Potassium Level 3.3 MMOL/L Chloride Level 98 MMOL/L Carbon Dioxide Level 30.1 MMOL/L Anion Gap 8 Blood Urea Nitrogen 22 MG/DL Creatinine 0.88 MG/DL Estimated GFR/1.73 m2 72 ML/MIN BUN/Creatinine Ratio 25.0 Glucose Level 100 MG/DL Calcium Level 9.3 MG/DL Magnesium Level 2.3 MG/DL Total Bilirubin 2.7 MG/DL Aspartate Amino Transf (AST/SGOT) 42 U/L Alanine Aminotransferase (ALT/SGPT) 60 U/L Alkaline Phosphatase 161 IU/L Total Protein 7.3 G/DL Albumin 3.7 G/DL Globulin 3.6 G/DL Albumin/Globulin Ratio 1.0 Chemistry Comments Glucometer 93 mg/dl Discharge Diagnosis\Comment: 1. Acute on chronic hypoxemic respiratory failure 2. Acute congestive right heart failure with preserved EF (65-70%) 3. Pulmonary arterial hypertension leading to right-sided heart failure and ascites 4. Type 2 myocardial infarction secondary to acute on chronic CHF 5. Methamphetamine induced cardiomyopathy 6. History of substance abuse 7. Tobacco use disorder 8. Chronic kidney disease stage II 9. Type 2 Diabetes mellitus - well controlled Operations\Procedures: None Consultants: None Complications: None Condition on DC: Stable Changed Medications: Furosemide (Lasix) 40 Mg Tablet 1 TAB PO TID for 30 Days, #90 TAB 0 Refills (Changed from: DAILY; 30; Do not take if blood pressure is less than 90/60 mmHg) Do not take if blood pressure is less than 90/60 mmHg. Take 3 times a day, but avoid taking after 5:00 p.m. so you can sleep without waking up to go to the bathroom. You can take at 6am, 12am and 4pm, but you are allowed to a adapt based on your medication schedule. Continued Medications: Aspirin (Aspirin) 81 Mg Tab.chew 1 TAB PO DAILY for 30 Days, #30 TAB.CHEW Atorvastatin Calcium (Atorvastatin Calcium) 20 Mg Tablet 20 MG PO DAILY for 30 Days, #30 TAB Carvedilol (Carvedilol) 3.125 Mg Tablet 0.5 TAB PO Q12H for 30 Days, #15 TAB 0 Refills Do not take the medication if blood pressure is less than 90/60 mmHg Hydroxyzine HCl (Hydroxyzine HCl) 50 Mg Tablet 1 TAB PO HS Lactobacillus Rhamnosus (Culturelle) 10 Billion Cell Capsule 1 CAP PO BID for 30 Days, #60 CAP 0 Refills Lamotrigine (Lamotrigine) 25 Mg Tablet 25 MG PO DAILY Naltrexone Hcl (Naltrexone Hcl) 50 Mg Tablet 1 TAB PO DAILY Nicotine 14 MG Patch* (Habitrol 14 MG Patch*) 1 Each Patch.td24 1 PATCH TD DAILY, PATCH Prazosin Hcl (Prazosin Hcl) 1 Mg Capsule 1 CAP PO HS Quetiapine Fumarate (Seroquel) 25 Mg Tablet 1 TAB PO HS for 30 Days, #30 TAB 0 Refills Sildenafil Citrate (Sildenafil) 20 Mg Tablet 1 TAB PO Q8H for 30 Days, #90 TAB 0 Refills Discharge Summary: HPI 39-year-old female past medical history of CHF, diabetes mellitus, pulmonary arterial hypertension presented to the ED after she was told by her tile setter apprentice at [facility] over one appointment come to the ED and get evaluated. Patient reports that she gained 6 lb over the last 10 days and has a been having worsening shortness of breaths, associated with orthopnea and paroxysmal nocturnal dyspnea with the last one day. Patient also reports chest pain that has been present since a long time but has been more constant and more severe over the past seven days. She stated that the chest pain is in the center of her chest and occasionally radiates to the left arm. She describes the chest pain as sharp pain. Reported that the chest pain does not have any specific triggers and can also occur when she is resting. Patient denied any recent fever, chills. She also reports chronic productive cough that has not changed. Patient stated that initially she used to have swelling of her legs whenever she accumulated fluid secondary to her pulmonary hypertension and right-sided heart failure but currently is noticing the fluid to be accumulating more in her belly and this time has noticed significant distention of her belly with the last seven days. The patient stated that she has a history of methamphetamine abuse due to which she developed congestive heart failure and is currently being evaluated at [facility] by (cardiology) and (pulmonology) for pulmonary arterial hypertension leading to right heart failure. The patient also reported that she has a right heart catheterization scheduled next week but her tile setter apprentice wanted her to get evaluated today due to acute changes in her condition. The patient states that she has been abstinent of any recreational drugs for the past three months. She is currently living at [facility]. Reported that her smoking has a increased recently and has been smoking at least one pack of cigarettes every day. The patient denied any other acute concerns or complaints. She denied any headaches, confusion, dizziness, palpitations, nausea, vomiting, diarrhea, constipation. Hospital Course: 39-year-old male patient admitted with main complaint of increasing shortness a breath and weight gain for the last two weeks. She was recommended to be evaluated more to increased diuresis. Patient was treated with Lasix 40 mg t.i.d. and had significant improvement since admission. Today the patient denies shortness of breath, chest pain, palpitation, dizziness or any other symptoms. She is stable to be discharged with oral Lasix 40 mg t.i.d.. Patient has a scheduled right heart catheterization this Tuesday and can be followed by his primary team. She had mildly increased creatinine that has returned back to baseline. Discharge physical exam: General: Awake and Alert, no acute distress. HEENT: Conjunctiva pink, Sclera clear, Mucus Membranes moist. Neck: Supple without masses and tenderness. Resp: Unlabored. Minimal bibasilar crackles noted. Heart: Regular Rate and rhythm, normal S1 and S2 without murmur, rub or gallop. Abdomen: Soft, distended, no organomegaly, no guarding or rebound Extremities: trace edema in bilateral lower extremities. Skin: Warm and Dry. Neurology: No focal motor or sensory deficits. Musculoskeletal: No restricted range motion. No deformities. Psychiatric: Normal mood and affect. Discharge medications: See below Discharge instructions: Follow-up with the primary care physician in 1-2 weeks Follow-up with your primary team at [facility] Take Lasix 40 mg 3 times a day until cardiology evaluation Continue home medication Come back in case of chest pain, severe shortness for breath, fever, productive cough or any concerning symptoms *Problems/Diagnosis: (1) Type 2 IN (myocardial infarction) Status: Chronic (2) Cor pulmonale Status: Chronic (3) Congestive heart failure Status: Chronic (4) Right-sided heart failure Status: Chronic (5) Chest pain Status: Chronic (6) Acute hypoxic respiratory failure Status: Acute (7) Pulmonary hypertension Status: Chronic (8) Elevated troponin Status: Chronic (9) Acute exacerbation of congestive heart failure Status: Acute Total Time Spent on D/C: > 30 Minutes Date of Service: Dec 02, 2024 Billing Provider: SHOBHA CUEVA MD Common Visit Codes: 14177-WFG/OBS DISCH DAY >30min PAULA SUBRAMANIAN RES Dec 02, 2024 16:56 SHOBHA CUEVA MD Dec 03, 2024 05:56
== END 2024-12-02 13:48 | disposition home or self-care (01) | DRG 133 ==
LOC: ER 17:54 → ED HOLD 23:48 → PCU 3S 12-01 09:13
PROVIDERS: ADMIT Internal Medicine; ATTEND Internal Medicine
DX: J96.21 Acute and chronic respiratory failure with hypoxia (principal); I50.33 Acute on chronic diastolic (congestive) heart failure; I21.A1 Myocardial infarction type 2; I27.21 Secondary pulmonary arterial hypertension; R18.8 Other ascites; I42.9 Cardiomyopathy, unspecified; F17.210 Nicotine dependence, cigarettes, uncomplicated; E11.22 Type 2 diabetes mellitus with diabetic chronic kidney disease; N18.2 Chronic kidney disease, stage 2 (mild); F15.90 Other stimulant use, unspecified, uncomplicated; Z82.49 Family history of ischemic heart disease and other diseases of the circulatory system
CPT/HCPCS: 36415; 71045; 80053; 80305; 81003; 82948; 83036; 83735; 83880; 84484; 85025; 87081; 93005; 93308; 94760; 99285; A4615; G0378; J1644; J1815; J1938

== ENCOUNTER 2025-01-15 12:57 | Emergency (ER) | payer MEDICAID ==
[~2025-01-15] VITALS: Ht 175.3 cm; Wt 85.7 kg
[~2025-01-15 12:57] MED LIST changes: -EMPA10TA PO; +LAMO-24 PO; +PRAZ1CAP5 PO; +QUET25TA PO; -SILD20TA14 PO; +SILD20TA42 PO
[2025-01-15 13:31] LABS: MEAN PLATELET VOLUME 6.7 FL (7.4-10.4); RED CELL DISTRIBUTION WIDTH 13.9 % (11.5-14.5)
--- NOTE | 2025-01-15 13:35 | ELECTROCARDIOGRAPH REPORT ---
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
--- NOTE | 2025-01-15 13:43 | RADIOLOGY REPORT ---
EXAM: DI CHEST,SINGLE VIEW Indication: CP Technique: Single frontal view of the chest was obtained Comparison: DI CHEST,SINGLE VIEW on DOS: 11/30/24, DI CHEST,SINGLE VIEW on DOS: 10/22/24, DI CHEST,SINGLE VIEW on DOS: 10/04/24, DI CHEST,SINGLE VIEW on DOS: 09/25/24, DI CHEST,SINGLE VIEW on DOS: 09/23/24 FINDINGS: Lines and Tubes: None Lungs: No focal consolidation. Pleura: No effusion. No pneumothorax. Cardiomediastinal contours: Unremarkable Bones: No acute osseous abnormality. IMPRESSION: No acute cardiopulmonary disease.
[2025-01-15 13:51] LABS: CREATININE 0.81 MG/DL (0.40-0.90); TOTAL CARBON DIOXIDE 30.0 MMOL/L (24-32); eCRCL 97 ML/MIN; eGFR 79 ML/MIN
[2025-01-15 13:58] LABS: PRO BRAIN NATRIURETIC PEPTIDE 956 PG/ML (0-125)
--- NOTE | 2025-01-15 14:31 | Physician Documentation ---
History of Present Illness General Chief Complaint: Chest Pain Stated Complaint: CHF SOB Time Seen by MD: 14:30 OK to notify your PCP?: No Primary Medical Doctor: bette pond Source: patient, family, RN notes reviewed Mode of Arrival: POV Exam Limitations: no limitations History of Present Illness Initial Comments 39-year-old female, with a history of CHF and pulmonary hypertension, presents complaining of generalized headache, nausea, low blood pressure, and chest pain for the last two days. She also describes an episode of lightheadedness today and reports her oxygen saturation was 84% of the time, however her blood pressure had increased. She states these symptoms are a normal side effect of new medications that she started. Patient started adempas 4 days ago and ambrisentan 2 weeks ago, prescribed by HANNAH Nogueira. Jero also recommended she come into the ED today. Medication Reconciliation Allergies: Coded Allergies: Penicillins (Verified Allergy, Unknown, Rash, 11/30/24) Scheduled Aspirin (Aspirin), 1 TAB PO DAILY Atorvastatin Calcium (Atorvastatin Calcium), 20 MG PO DAILY Carvedilol (Carvedilol), 0.5 TAB PO Q12H Furosemide (Lasix), 1 TAB PO TID Hydroxyzine HCl (Hydroxyzine HCl), 1 TAB PO HS, (Reported) Lactobacillus Rhamnosus (Culturelle), 1 CAP PO BID Lamotrigine (Lamotrigine), 25 MG PO DAILY, (Reported) Naltrexone Hcl (Naltrexone Hcl), 1 TAB PO DAILY, (Reported) Nicotine 14 MG Patch* (Habitrol 14 MG Patch*), 1 PATCH TD DAILY, (Reported) Prazosin Hcl (Prazosin Hcl), 1 CAP PO HS, (Reported) Quetiapine Fumarate (Seroquel), 1 TAB PO HS, (Reported) Sildenafil Citrate (Sildenafil), 1 TAB PO Q8H Past Medical History Past Medical History: No Pertinent History, Congestive Heart Failure, Pulmonary HTN, Bipolar Past Surgical History: noncontributory Smoking: Cigarettes Alcohol Use: Sober Drug Use: methamphetamine Lives with: Other Lives In: Other Occupation: unemployed Review of Systems All Other Systems at this time: Reviewed and Negative ROS As stated above in the HPI, otherwise all systems are reviewed and negative. Physical Exam Physical Exam Vital Signs: RN Vital Signs have been reviewed: Yes, Temperature: 98.0, Source: Temporal, Heart Rate: 82, Respiratory Rate: 18, BP: 95/58, Pulse Oximetry: 94, Weight: 85.700 Oxygen Flow Rate: 0 Pulse Oximetry Reflects: adequate oxygenation Physical Exam VITALS: Reviewed and as above. GENERAL: Alert, no apparent distress. HEENT: Normocephalic, atraumatic, PERRL, EOMI, dry mucosa RESPIRATORY: Lungs clear, normal breath sounds, no respiratory distress. CHEST: No accessory muscle use, no retractions CV: Regular rate, regular rhythm, no edema, no murmur, No: JVD GI: Soft, non-tender, bowels sounds present, no rebound, guarding, or rigidity MUSCULOSKELETAL No deformities, no edema SKIN: Warm and dry, no rash NEURO: Oriented x4, No motor or sensory deficit PSYCH: Normal mood and affect, no agitation Progress Results/Orders Reviewed/noted all lab results: Yes Results/Orders Vital Signs 01/15/25 01/15/25 01/15/25 01/15/25 13:20 14:32 14:37 15:23 Temp 98.0 98.0 98.0 Pulse 82 71 83 Resp 18 15 13 13 B/P (MAP) 95/58 97/60 (72) 114/70 (85) Pulse Ox 94 95 97 O2 Flow Rate 0 0 0 Laboratory Tests Test 01/15/25 13:04 White Blood Count 5.4 Red Blood Count 4.39 Hemoglobin 13.5 Hematocrit 38.8 Mean Corpuscular Volume 88.5 Mean Corpuscular Hemoglobin 30.8 Mean Corpuscular Hemoglobin Concent 34.8 Red Cell Distribution Width 13.9 Platelet Count 273 Mean Platelet Volume 6.7 L Neutrophils (%) (Auto) 62.4 Lymphocytes (%) (Auto) 26.5 Monocytes (%) (Auto) 7.7 Eosinophils (%) (Auto) 2.6 Basophils (%) (Auto) 0.8 Neutrophils # (Auto) 3.4 Lymphocytes # (Auto) 1.4 Monocytes # (Auto) 0.4 Eosinophils # (Auto) 0.1 Basophils # (Auto) 0.0 CBC Comment Sodium Level 138 Potassium Level 3.3 L Chloride Level 101 Carbon Dioxide Level 30.0 Anion Gap 7 L Blood Urea Nitrogen 15 Creatinine 0.81 Estimated GFR/1.73 m2 79 BUN/Creatinine Ratio 18.5 Glucose Level 132 H Calcium Level 8.9 Total Bilirubin 2.8 H Aspartate Amino Transf (AST/SGOT) 42 H Alanine Aminotransferase (ALT/SGPT) 65 Alkaline Phosphatase 177 H Troponin I High Sensitivity 98 *H Pro-B-Type Natriuretic Peptide 956 H Total Protein 7.7 Albumin 4.0 Globulin 3.7 Albumin/Globulin Ratio 1.1 Chemistry Comments EKG/XRAY/CT/US/VASC/MRI EKG : Additional Comment 1306: EKG interpreted by myself to show NSR at a rate of 91bpm. Left axis deviation, nonspecific ST changes. Chest X-Ray : Additional Comments EXAM: DI CHEST,SINGLE VIEW Indication: CP Technique: Single frontal view of the chest was obtained Comparison: DI CHEST,SINGLE VIEW on DOS: 11/30/24, DI CHEST,SINGLE VIEW on DOS: 10/22/24, DI CHEST,SINGLE VIEW on DOS: 10/04/24, DI CHEST,SINGLE VIEW on DOS: 09/25/24, DI CHEST,SINGLE VIEW on DOS: 09/23/24 FINDINGS: Lines and Tubes: None Lungs: No focal consolidation. Pleura: No effusion. No pneumothorax. Cardiomediastinal contours: Unremarkable Bones: No acute osseous abnormality. IMPRESSION: No acute cardiopulmonary disease. Reviewed by myself (Dr. Tang) Departure Time of Disposition: 15:25 Disposition: HOME / SELF CARE / HOMELESS Impression: Primary Impression: Dizziness Additional Impression: Elevated troponin Condition: Stable Discharge Instructions: Dizziness, [id number], Troponin Test Additional Instructions: Continue taking medications prescribed via HANNAH Nogueira. Follow up with the HANNAH Nogueira in the next week. Return to the ER for new or worsening symptoms or other concerns. Education Educated: Patient Educated regarding: diagnosis, treatment, need for follow up Signature Scribe Signature: Scribed for Jean Carlos Tang MD by Alf Winters . 01/15/25 14:42 JEAN CARLOS TANG MD Jan 15, 2025 14:31 ALF JACOBS Jan 15, 2025 14:45
[2025-01-15 15:23] VITALS: TEMP 98
[2025-01-15 15:38] VITALS: BP 106/69; PULSE 69; RESP 18; O2SAT 98
== END 2025-01-15 15:41 | disposition home or self-care (01) ==
LOC: ER 12:58
DX: R42 Dizziness and giddiness (principal); R79.89 Other specified abnormal findings of blood chemistry; I50.9 Heart failure, unspecified; F31.9 Bipolar disorder, unspecified; F15.90 Other stimulant use, unspecified, uncomplicated; F17.210 Nicotine dependence, cigarettes, uncomplicated; Z79.82 Long term (current) use of aspirin; Z79.899 Other long term (current) drug therapy; Z56.0 Unemployment, unspecified; Z88.0 Allergy status to penicillin
CPT/HCPCS: 36415; 71045; 80053; 83880; 84484; 85025; 93005; 99285; A4615

== ENCOUNTER 2025-01-20 08:19 | Emergency (ER) | payer MEDICAID ==
[~2025-01-20] VITALS: Ht 175.3 cm; Wt 88.0 kg
[2025-01-20 08:20] VITALS: BP 107/64; PULSE 77; RESP 16; TEMP 98.3; O2SAT 95
[2025-01-20 09:13] LABS: STREP A SCREEN NEGATIVE (Neg)
--- NOTE | 2025-01-20 09:16 | Physician Documentation ---
History of Present Illness ~ Chief Complaint: Sore Throat Stated Complaint: POSS STREP Time Seen by MD: 09:06 OK to notify your PCP?: Yes Primary Medical Doctor: bette pond Source: patient, RN/, RN notes reviewed, old records Mode of Arrival: POV Exam Limitations: no limitations HPI This patient is a 39 y/o female who presents to ED with chief complaint of sore throat and cough. Patient states that her partner at home has been sick with similar symptoms including sore throat, runny nose, and cough. Her symptoms started two days ago and have been wrosening since, stating her sore throat is her biggest complaint. She denies any fevers. Patient denies any other as sociated symptoms at this time. Patient denies any other alleviating or exacerbating factors. Medication Reconciliation Allergies: Coded Allergies: Penicillins (Verified Allergy, Unknown, Rash, 11/30/24) Scheduled Aspirin (Aspirin), 1 TAB PO DAILY Atorvastatin Calcium (Atorvastatin Calcium), 20 MG PO DAILY Azithromycin (Zithromax), 1 TAB PO DAILY Carvedilol (Carvedilol), 0.5 TAB PO Q12H Furosemide (Lasix), 1 TAB PO TID Hydroxyzine HCl (Hydroxyzine HCl), 1 TAB PO HS, (Reported) Lactobacillus Rhamnosus (Culturelle), 1 CAP PO BID Lamotrigine (Lamotrigine), 25 MG PO DAILY, (Reported) Naltrexone Hcl (Naltrexone Hcl), 1 TAB PO DAILY, (Reported) Nicotine 14 MG Patch* (Habitrol 14 MG Patch*), 1 PATCH TD DAILY, (Reported) Prazosin Hcl (Prazosin Hcl), 1 CAP PO HS, (Reported) Quetiapine Fumarate (Seroquel), 1 TAB PO HS, (Reported) Sildenafil Citrate (Sildenafil), 1 TAB PO Q8H Past Medical History Past Medical History: No Pertinent History, Congestive Heart Failure, Pulmonary HTN, Bipolar Past Surgical History: noncontributory Patient History: Blood clots MOTHER FH: breast cancer MOTHER FH: heart disease FATHER MOTHER FH: stroke FATHER Smoking Status: Unknown if ever smoked Alcohol Use: Sober Drug Use: methamphetamine Lives with: Other Lives In: Other Occupation: unemployed Review of Systems All Other Systems at this time: Reviewed and Negative Physical Exam Vital Signs: RN Vital Signs have been reviewed: Yes, Temperature: 98.3, Source: Oral, Heart Rate: 77, Respiratory Rate: 16, BP: 107/64, Pulse Oximetry: 95, Weight: 88.000 Oxygen Flow Rate: 0 Physical Exam General: The patient is well developed, well nourished, nontoxic appearing and is in no acute distress. Skin: [place], warm and dry with no rashes. HEENT: Nasal congestion. Pharyngeal erythema with petechiae. The mouth and oropharynx were otherwise clear with moist mucous membranes.Head was normocephalic and atraumatic. Eyes - pupils equal, round, reactive to light and accommodation. Extraocular movements were intact. Conjunctivae were nonicte radha. Neck: Lymphadenopathy. Neck otherwise supple and nontender. There was no jugular venous distention, thyromegaly or masses. Chest: Clear to auscultation bilaterally without wheezes, rales or rhonchi. No accessory muscle use. No dullness to percussion. Heart: Rate regular and rhythmic. S1, S2. No murmurs. Palpation of the chest wall was normal. No rubs or thrills. Abdomen: Soft, nontender and nondistended. Positive bowel sounds. No guarding or rebound. No hepatosplenomegaly or palpable masses. Extremities: No cyanosis, clubbing or edema. The patient moves all extremities. Pulses were equal and symmetric. Neurologic: Cranial nerves II-XII were intact. Sensation was intact to light touch throughout. Motor strength was 5/5 in all four extremities. Deep tendon reflexes were intact in both upper and lower extremities. Psychologic: The patient was oriented to person, place and time. The patient demonstrated appropriate judgement and insight. Progress Results/Orders Reviewed/noted all lab results: Yes Results/Orders Orders - JOSE E DAVILA MD Cult Throat + R/O Beta Strep (01/20/25 09:13) Completed Orders - JOSE E DAVILA MD Strep A Rapid (01/20/25 08:23) Dexamethasone Inj (Decadron 10mg/Ml Inj) (01/20/25 09:19) Diphenhydramine Oral Solution (Hydramine (01/20/25 09:20) Azithromycin Tablet (Zithromax Tablet) (01/20/25 09:20) Naproxen Tablet (Naprosyn Tablet) (01/20/25 09:25) Medications Received in ER Medications (Trade) Dose Ordered Sig/Sydnee Route PRN Reason Start Time Stop Time Status Last Admin Dose Admin (Decadron 10mg/ ml inj) 10 mg ONCE STAT PO 01/20/25 09:19 01/20/25 09:22 DC 01/20/25 09:38 10 MG (Zithromax tablet) 500 mg ONCE ONCE PO 01/20/25 09:20 01/20/25 09:28 DC 01/20/25 09:37 500 MG (Naprosyn tablet) 500 mg ONCE ONCE PO 01/20/25 09:25 01/20/25 09:26 DC 01/20/25 09:38 500 MG Vital Signs 01/20/25 08:20 Temp 98.3 Pulse 77 Resp 16 B/P (MAP) 107/64 Pulse Ox 95 O2 Flow Rate 0 Laboratory Tests Test 01/20/25 08:24 Group A Streptococcus Rapid Negative Re-Evaluation Re-Evaluation : Re-Evaluation: Improved Progress Patient was seen and examined. Patient is given reassurance. Patient received steroids, liquid Benadryl, naproxen for pain and started on antibiotics for presumed strep pharyngitis. Physical exam had some petechiae redness very suspicious for strep pharyngitis. Patient was having some low-grade fevers but also had some URI like complaints such as some nasal congestion denies any exposure to COVID this is not the worst sore throat that they have had in the past. With the extensive petechiae on the oropharynx patient will be treated for strep pharyngitis. Later the culture came back as negative but will continue the bacterial treatment. Medical Decision Making Additional information obtaine: old records Findings Viral versus bacterial pharyngitis however COVID is also in the differential. Ear Diff. Dx: Considerations: Include: Other Eye Diff. Dx: Considerations: Include: Other Nose Diff. Dx: Considerations: Include: Other Tooth Diff. Dx: Considerations: Include: Other Throat Diff Dx: Considerations: Include: Epiglottitis, Esophageal candidiasis, Hand foot mouth disease, Herpangina, Herpetic stomatitis, Herpes simplex, Infection mononucleosis, Immunodeficiency, Sebastian's angina, Peritonsillar abscess, Peritonsillar cellulitis, Pharyngitis-strepococcal, Pharyngitis-viral, Thrush, URI, Other Departure Time of Disposition: 09:27 Disposition: 01 HOME / SELF CARE / HOMELESS Impression: Primary Impression: Strep pharyngitis Condition: Stable Discharge Instructions: Strep Throat, Adult Referrals: NO PRIMARY CARE PROVIDER (PCP) Prescriptions Azithromycin (Zithromax) 250 Mg Tablet 1 TAB PO DAILY, #4 TAB Prov: JOSE E DAVILA MD 01/20/25 Education Educated: Patient Educated regarding: diagnosis, treatment, need for follow up Signature Scribe Signature: Scribed for Jose E Davila MD by Lindsey Clemons . 01/20/25 09:27 Attestation: The note accurately reflects work and decisions made by me.Jose E Davila MD 01/20/25 09:16 JOSE E DAVILA MD Jan 20, 2025 09:16
[2025-01-20] MEDS ORDERED: AZIT-164 PO (09:22)
[2025-01-20] MEDS: dexamethasone sod phosphate 10mg/ml inj PO STA (09:38)
[2025-01-20] MEDS: diphenhydrAMINE 25 MG/10 ML UD oral solution PO ONE (09:50)
== END 2025-01-20 10:10 | disposition home or self-care (01) ==
LOC: ER 08:19
DX: J02.0 Streptococcal pharyngitis (principal); Z88.0 Allergy status to penicillin; Z79.82 Long term (current) use of aspirin; Z88.8 Allergy status to other drugs, medicaments and biological substances
CPT/HCPCS: 87081; 87880; 99284; J1100; Q0163

== ENCOUNTER 2025-02-24 18:04 | Inpatient (IN) | payer MEDICAID ==
[~2025-02-24] VITALS: Ht 175.3 cm; Wt 90.1 kg
--- NOTE | 2025-02-24 18:14 | ELECTROCARDIOGRAPH REPORT ---
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 Pham Horvath Measurements Intervals [place] Rate: 74 P: 40 [place]: 181 QRS: 98 QRSD: 112 T: 18 QT: 481 QTc: 534 Interpretive Statements Sinus rhythm Borderline intraventricular conduction delay RSR' in V1 or V2, right VCD or RVH Prolonged QT interval Electronically Signed On 02-24-2025 18:29:[address] Pham Horvath Please click the below link to view image of tracing.
[2025-02-24] MEDS: ondansetron/PF 4mg/2ml inj IV ONE (18:33)
[2025-02-24 18:51] LABS: MEAN PLATELET VOLUME 6.5 FL (7.4-10.4); RED CELL DISTRIBUTION WIDTH 12.6 % (11.5-14.5)
--- NOTE | 2025-02-24 19:04 | RADIOLOGY REPORT ---
CHEST RADIOGRAPH Indication: CP Technique: Single frontal view of the chest was obtained Comparison: DI CHEST,SINGLE VIEW on DOS: 01/15/25, DI CHEST,SINGLE VIEW on DOS: 11/30/24, DI CHEST,SINGLE VIEW on DOS: 10/22/24 FINDINGS: Lines and Tubes: None Lungs: No focal consolidation. Interstitial prominence. Pleura: No effusion. No pneumothorax. Cardiomediastinal contours: Unremarkable Bones: No acute osseous abnormality. IMPRESSION: Mild pulmonary vascular congestion.
[2025-02-24 19:05] LABS: CREATININE 0.96 MG/DL (0.40-0.90); PRO BRAIN NATRIURETIC PEPTIDE 876 PG/ML (0-125); TOTAL CARBON DIOXIDE 29.2 MMOL/L (24-32); eCRCL 82 ML/MIN; eGFR 65 ML/MIN
[2025-02-24] MEDS: albuterol 2.5 MG/3 ML nebule NEB ONE ×2 (20:10)
[2025-02-24 20:11] VITALS: PULSE 72; RESP 22; O2SAT 88
--- NOTE | 2025-02-24 20:11 | Physician Documentation ---
History of Present Illness ~ Chief Complaint: Shortness of Breath Stated Complaint: SOB Time Seen by MD: 18:13 OK to notify your PCP?: Yes Primary Medical Doctor: bette pond Source: patient, RN/MD, EMS, RN notes reviewed, EMS notes reviewed, old records Mode of Arrival: EMS Exam Limitations: no limitations HPI This patient has a history of heart failure secondary to pulmonary hypertension as well as prior methamphetamine use in the past. Patient is followed by [facility] and was taken off of sildenafil and started on other pulmonary hyper tensive medications. She states tonight she started having significant shortness of breath difficulty breathing and some chest pain as well. Normally she is not have chest pain. Her medications are at her bedside but she was unable to get it because EMS zip dry out. She was 92% on room air when she was seen by EMS she has stage III pulmonary hypertension. He is wheezing four word sentences has a history of COPD and asthma as well. She is not on any steroids and was said to be discharged from the hospital yesterday for shortness of breath. Review of the medical record shows she was not seen here yesterday and must has been seen at [facility]. Patient has chronic EKG changes per the medical record and also has chronic troponins. Chest pain is new for the patient at home pt takes Bumax 2 g Adempas 1.5 mg TID Ambrisentan 10 mg Medication Reconciliation Allergies: Coded Allergies: Penicillins (Verified Allergy, Unknown, Rash, 11/30/24) Scheduled Ambrisentan (Ambrisentan), 1 TAB PO Q24H, (Reported) Aspirin (Aspir 81), 1 TAB PO DAILY, (Reported) Atorvastatin Calcium (Atorvastatin Calcium), 1 TAB PO DAILY, (Reported) Bumetanide (Bumetanide), 2 TAB PO QAM, (Reported) Carvedilol (Carvedilol), 1 TAB PO BIDBD, (Reported) Empagliflozin (Jardiance), 1 TAB PO QAM, (Reported) Hydroxyzine HCl (Hydroxyzine HCl), 1 TAB PO TID, (Reported) Nicotine 21 MG Patch* (Habitrol 21 MG Patch*), 1 PATCH TOP DAILY, (Reported) Potassium Chloride* (K-Dur*), 1 TAB PO DAILY, (Reported) Prazosin Hcl (Prazosin Hcl), 2 CAP PO HS, (Reported) Riociguat (Adempas), 1 TAB PO Q8H, (Reported) Spironolactone (Spironolactone), 1 TAB PO DAILY, (Reported) Scheduled PRN Zolpidem Tartrate (Zolpidem Tartrate), 1-1.5 TAB PO HS PRN for sleep, (Reported) Discontinued Medications Aspirin (Aspirin), 1 TAB PO DAILY Discontinued Reason: completed med therapy Atorvastatin Calcium (Atorvastatin Calcium), 20 MG PO DAILY Discontinued Reason: completed med therapy Carvedilol (Carvedilol), 0.5 TAB PO Q12H Discontinued Reason: completed med therapy Furosemide (Lasix), 1 TAB PO TID Discontinued Reason: completed med therapy Lactobacillus Rhamnosus (Culturelle), 1 CAP PO BID Discontinued Reason: completed med therapy Lamotrigine (Lamotrigine), 25 MG PO DAILY, (Reported) Discontinued Reason: completed med therapy Naltrexone Hcl (Naltrexone Hcl), 1 TAB PO DAILY, (Reported) Discontinued Reason: completed med therapy Nicotine 14 MG Patch* (Habitrol 14 MG Patch*), 1 PATCH TD DAILY, (Reported) Discontinued Reason: completed med therapy Quetiapine Fumarate (Seroquel), 1 TAB PO HS, (Reported) Discontinued Reason: completed med therapy Sildenafil Citrate (Sildenafil), 1 TAB PO Q8H Discontinued Reason: completed med therapy Past Medical History Past Medical History: No Pertinent History, Congestive Heart Failure, Pulmonary HTN, Bipolar Past Surgical History: noncontributory Patient History: Blood clots MOTHER FH: breast cancer MOTHER FH: heart disease FATHER MOTHER FH: stroke FATHER Smoking Status: Current every day smoker Alcohol Use: Sober Drug Use: methamphetamine Lives with: Other Lives In: Other Occupation: unemployed Review of Systems All Other Systems at this time: Reviewed and Negative Physical Exam Vital Signs: RN Vital Signs have been reviewed: Yes, Temperature: 97.9, Source: Oral, Heart Rate: 74, Respiratory Rate: 22, BP: 100/52, Pulse Oximetry: 92, Weight: 75.000 Oxygen Flow Rate: 4.0 Physical Exam General: The patient is well developed, well nourished, nontoxic appearing and is in no acute distress. Skin: [place], warm and dry with no rashes. HEENT: Head was normocephalic and atraumatic. Eyes - pupils equal, round, reactive to light and accommodation. Extraocular movements were intact. Conj unctivae were nonicteric. The mouth and oropharynx were clear with moist mucous membranes. There were no pharyngeal exudates or erythema. Neck: Supple and nontender. There was no jugular venous distention, lymphadenopathy, thyromegaly or masses. Chest: Positive accessory muscle use. No dullness to percussion. Short shallow breath sounds few word sentences expiratory wheezing and prolonged expiratory phase Heart: Rate regular and rhythmic. S1, S2. No murmurs. Palpation of the chest wall was normal. No rubs or thrills. Abdomen: Soft, nontender and nondistended. Positive bowel sounds. No guarding or rebound. No hepatosplenomegaly or palpable masses. Extremities: No cyanosis, clubbing or edema. The patient moves all extremities. Pulses were equal and symmetric. Neurologic: Motor sensory grossly intact Psychologic: The patient was oriented to person, place and time. The patient demonstrated appropriate judgement and insight. Progress Progress Note Patient was presented to the hospitalist at 8:40 p.m. Patient came in with extreme respiratory difficulty given multiple neb yudy atments laboratory work was obtained patient will be admitted to the hospitalist service for further workup and care. Results/Orders Results/Orders Orders - JOSE E HORVATH MD Chest,Single View (02/24/25 18:50) Monitor (02/24/25 18:12) Saline Lock (02/24/25 18:12) Oxygen (02/24/25 18:12) Electrocardiogram (02/24/25 18:12) Heliox Svn Treatment (02/24/25 ) Heliox Svn Treatment (02/24/25 ) Svn Treatment (02/24/25 20:05) Heliox Svn Treatment (02/24/25 20:06) Page Hospitalist (02/24/25 20:12) Fill Out Med Reconciliation (02/24/25 20:12) Completed Orders - JOSE E HORVATH MD Chest,Single View (02/24/25 18:50) Cbc/Diff (02/24/25 18:12) BMP (02/24/25 18:12) PBNP (02/24/25 18:12) Electrocardiogram (02/24/25 18:12) Hs Troponin I W Calculations (02/24/25 18:12) Hs Troponin I W Calculations (02/24/25 20:12) Hs Troponin I W Calculations (02/24/25 21:12) Methylprednisolone Sod Succ (Solumedrol (02/24/25 18:15) Ondansetron Inj. (Zofran 4mg/2ml Vial) (02/24/25 18:30) Albuterol 2.5mg/3ml Nebule (Proventil 2. (02/24/25 20:05) Albuterol 2.5mg/3ml Nebule (Proventil 2. (02/24/25 20:10) Magnesium Sulf-Water 2g/50ml (Magnesium (02/24/25 20:25) Potassium Cl Sr Tablet (K-Dur Tablet) (02/24/25 20:25) Potassium Cl 10meq/100ml Bag (Potassium (02/24/25 20:25) Magnesium Oxide Tablet (Mag-Ox 400mg Tab (02/24/25 20:25) Liver Panel (02/24/25 20:22) MG (02/24/25 20:22) Morphine 2mg/Ml Inj. (Morphine Inj.) (02/24/25 20:40) Aspirin 81mg Chew Tablet (Aspirin 81mg C (02/24/25 20:40) Enoxaparin Syringe (Lovenox Syringe) (02/24/25 20:40) Medications Received in ER Medications (Trade) Dose Ordered Sig/Sydnee Route PRN Reason Start Time Stop Time Status Last Admin Dose Admin (SoluMEDROL 125mg inj) 125 mg ONCE ONCE IV 02/24/25 18:15 02/24/25 18:19 DC 02/24/25 18:35 125 MG (Zofran 4mg/2ml vial) 4 mg ONCE ONCE IV 02/24/25 18:30 02/24/25 18:31 DC 02/24/25 18:33 4 MG (Proventil 2.5 MG/3ML nebule) 2.5 mg ONCE ONCE NEB 02/24/25 20:05 02/24/25 20:07 DC 02/24/25 20:10 2.5 MG Magnesium Sulfate 50 ml @ 25 mls/hr ONCE ONCE IV 02/24/25 20:25 02/24/25 22:24 DC 02/24/25 21:39 25 MLS/HR (K-DUR tablet) 20 meq ONCE ONCE PO 02/24/25 20:25 02/24/25 20:35 DC 02/24/25 21:31 20 MEQ (aspirin 81MG chew tablet) 324 mg ONCE ONCE PO 02/24/25 20:40 02/24/25 20:41 DC 02/24/25 21:31 324 MG (Lovenox syringe) 75 mg ONCE ONCE SUBCUT 02/24/25 20:40 02/24/25 20:41 DC 02/24/25 21:36 75 MG Vital Signs 02/24/25 02/24/25 02/24/25 02/24/25 18:07 18:12 19:15 20:11 Temp 97.9 97.9 Pulse 74 81 74 72 Resp 14 22 22 B/P (MAP) 96/54 100/60 (73) 100/52 (68) Pulse Ox 93 90 92 88 O2 Delivery Simple Mask* O2 Flow Rate 4.0 6 FiO2 N/A 02/24/25 02/24/25 20:15 20:25 Temp 97.9 Pulse 71 68 Resp 24 18 B/P (MAP) 100/55 (70) Pulse Ox 88 94 O2 Delivery Simple Mask* O2 Flow Rate 4.0 6 FiO2 N/A Laboratory Tests Test 02/24/25 18:28 02/24/25 20:25 White Blood Count 8.9 Red Blood Count 4.51 Hemoglobin 13.8 Hematocrit 39.8 Mean Corpuscular Volume 88.2 Mean Corpuscular Hemoglobin 30.6 Mean Corpuscular Hemoglobin Concent 34.7 Red Cell Distribution Width 12.6 Platelet Count 249 Mean Platelet Volume 6.5 L Neutrophils (%) (Auto) 75.1 H Lymphocytes (%) (Auto) 15.5 L Monocytes (%) (Auto) 6.8 Eosinophils (%) (Auto) 2.0 Basophils (%) (Auto) 0.6 Neutrophils # (Auto) 6.6 Lymphocytes # (Auto) 1.4 Monocytes # (Auto) 0.6 Eosinophils # (Auto) 0.2 Basophils # (Auto) 0.1 CBC Comment Sodium Level 138 Potassium Level 3.4 L Chloride Level 102 Carbon Dioxide Level 29.2 Anion Gap 7 L Blood Urea Nitrogen 12 Creatinine 0.96 H Estimated GFR/1.73 m2 65 BUN/Creatinine Ratio 12.5 Glucose Level 103 Calcium Level 8.9 Troponin I High Sensitivity 62 *H 62 *H Pro-B-Type Natriuretic Peptide 876 H Albumin 4.1 4.0 Chemistry Comments Magnesium Level 2.1 Total Bilirubin 2.5 H Direct Bilirubin 0.4 H Aspartate Amino Transf (AST/SGOT) 27 Alanine Aminotransferase (ALT/SGPT) 36 Alkaline Phosphatase 163 H Troponin I High Sens Percent Delta 0 Troponin I Hi Sens Absolute Change 0 Total Protein 7.6 Globulin 3.6 Albumin/Globulin Ratio 1.1 EKG/XRAY/CT/US/VASC/MRI EKG : Additional Comment 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 Jose E Horvath Measurements Intervals [place] Rate: 74 P: 40 [place]: 181 QRS: 98 QRSD: 112 T: 18 QT: 481 QTc: 534 Interpretive Statements Sinus rhythm Borderline intraventricular conduction delay RSR' in V1 or V2, right VCD or RVH Prolonged QT interval Electronically Signed On 02-24-2025 18:29:[address] Jose E Horvath Please click the below link to view image of tracing. Chest X-Ray : Additional Comments CHEST RADIOGRAPH Indication: CP Technique: Single frontal view of the chest was obtained Comparison: DI CHEST,SINGLE VIEW on DOS: 01/15/25, DI CHEST,SINGLE VIEW on DOS: 11/30/24, DI CHEST,SINGLE VIEW on DOS: 10/22/24 FINDINGS: Lines and Tubes: None Lungs: No focal consolidation. Interstitial prominence. Pleura: No effusion. No pneumothorax. Cardiomediastinal contours: Unremarkable Bones: No acute osseous abnormality. IMPRESSION: Mild pulmonary vascular congestion. : With Contrast?: Yes Impression CTA Chest with intravenous contrast INDICATION: pe history , sob , pulmonary hypertension COMPARISON: DI CHEST,SINGLE VIEW on DOS: 02/24/25, DI CHEST,SINGLE VIEW on DOS: 01/15/25, DI CHEST,SINGLE VIEW on DOS: 11/30/24, DI CHEST,SINGLE VIEW on DOS: 10/22/24, DI CHEST,SINGLE VIEW on DOS: 10/04/24 TECHNIQUE: Multidetector spiral CTA of the chest was performed of the chest with intravenous contrast. PULMONARY ANGIOGRAPHY PROTOCOL was utilized using a bolus-tracking technique centered on the main pulmonary artery. Axial, coronal and sagittal multiplanar and MIP reformats were performed. Radiation Dose : 1. Chest: CTDI volume is 15.88 mGy. Dose-length product is 567.04 mGy*cm The dose indicators for CT are the volume Computed Tomography (CT) Dose Index (CTDIvol) and the Dose Length Product (DLP), and are measured in units of mGy a nd mGy-cm, respectively. These indicators are not patient dose, but values generated from the CT scanner acquisition factors. The report includes radiation exposure data for exposures received during this examination. Findings: Pulmonary artery: No pulmonary embolism Lower neck: Normal thyroid. Lungs: Mild bronchial wall thickening. Streaky bibasilar atelectatic changes. Heart/Vascular Structures: Normal heart size. No pericardial effusion. Lymph Nodes: No adenopathy Pleura: No pleural effusion or significant pneumothorax. Musculoskeletal: No acute osseous abnormality. Soft tissues: Normal. Upper abdomen: Limited portions of the upper abdomen are unremarkable. IMPRESSION: No pulmonary embolus. Airways inflammation with streaky atelectatic changes. Heart Score: Heart Score Response (Comments) Value History Slightly Suspicious 0 EKG Repolarization Disturb 1 Age <45 0 Risk Factors 1 or 2 risk factors 1 Troponin 1-2 x's Normal limit 1 Total 3 Medical Decision Making Additional information obtaine: old records Findings Patient has a history of pulmonary hypertension. Patient received multiple neb treatments including Heliox as well. Her hypertensive meds for tonight have not been taken. Laboratory work was obtained CBC is within normal limits no left shift. Patient's troponin is elevated at 62. Potassium slightly low at 34. Patient was then given potassium and magnesium supplementation. Additionally patient's troponin is 62 aspirin and Lovenox was then given for the patient. After multiple neb treatments including Heliox and Solu-Medrol patient was then admitted to the hospitalist service for further workup and care. Continuous monitoring coordinator interpretation shows normal sinus rhythm heart rate 70s, no ectopy, normal, my interpretation. Pulse oximetry monitor interpretation shows low oxygenation at 94% on 6 L oxygen, abnormal, my interpretation. Heart Score: 3 Differential Dx:Considerations: Include: anxiety, asthma, bronchitis, cardiogenic shock, CHF, COPD, dysrhythmia, hypertension, accelerated, hypertension, essential, hypertension, malignant, hyperventilation, hyponatremia, myocardial infarction, panic attack, pneumonia, pneumonitis, p neumothorax, PSVT, pulmonary embolism, respiratory distress, respiratory failure, sinusitis, upper resp. infection, other Departure Disposition: ADMITTED INPATIENT Admission Level of Care: PCU with Tele Impression: Primary Impression: Pulmonary hypertension Additional Impressions: Acute exacerbation of congestive heart failure Qualified Codes: I50.43 - Acute on chronic combined systolic (congestive) and diastolic (congestive) heart failure Acute exacerbation of chronic obstructive airways disease Hypokalemia Elevated troponin Condition: Fair Referrals: NO PRIMARY CARE PROVIDER (PCP) Education Educated: Patient Educated regarding: diagnosis, treatment Critical Care Note Total Time (mins): 30 Critical Care Note The very real possibility of a deterioration of this patient's condition required the highest level of my preparedness for sudden, emergent intervention. I provided critical care services, which included medication orders, frequent reevaluations of the patient's condition and response to treatment, ordering and reviewing test results, and discussing the case with various consultants. Excludes time spent performing separately billable procedures. The critical care time associated with the care of the patient was. 30 minutes Signature Scribe Signature: The note accurately reflects work and decisions made by me.Jose E Horvath MD 02/24/25 20:16 Attestation: The note accurately reflects work and decisions made by me.Jose E Horvath MD 02/24/25 20:16 JOSE E HORVATH MD Feb 24, 2025 20:11
[2025-02-24 20:25] VITALS: PULSE 68; RESP 18; O2SAT 94
[2025-02-24] MEDS ORDERED: magnesium Cl slow-release 64mg tablet PO PRN (20:40)
[2025-02-24] MEDS ORDERED: HYDROcodone/acetaminophen 5mg/325mg tablet PO PRN (20:40)
[2025-02-24] MEDS ORDERED: potassium Cl 20 mEq SR tablet PO PRN ×2 (20:40)
[2025-02-24] MEDS ORDERED: potassium Cl 40MEQ/1/2NS 520ml 520 ML IV PRN (20:40)
[2025-02-24] MEDS ORDERED: magnesium sulf-water 2g/50mL 50 ML IV PRN (20:40)
[2025-02-24] MEDS ORDERED: magnesium hydroxide 30ml (MOM) UD suspension PO PRN (20:40)
[2025-02-24] MEDS ORDERED: magnesium sulf-water 4G/100mL 100 ML IV PRN (20:40)
[2025-02-24] MEDS: magnesium sulf-water 2g/50mL 50 ML IV ONE (20:51)
[2025-02-24] MEDS: potassium CL 10mEq/100ml bag 100 ML IV ONE (20:51)
[2025-02-24] MEDS: potassium Cl 20 mEq SR tablet PO ONE (21:31)
[2025-02-24] MEDS: enoxaparin 100mg/ml syringe SUBCUT ONE (21:36)
--- NOTE | 2025-02-24 22:02 | HISTORY AND PHYSICAL-Residence ---
History & Physical Providers to CC Resident Creating Document: JIMI ELIZABETH RES ~ History of Present Illness Primary Medical Doctor: [facility] Reason for Admit\Complaint: Shortnes of Breath History of Present Illness This is a 39-year-old female with past medical history of CHF, COPD, asthma, DVT, diabetes mellitus type 2, pulmonary hypertension presented in the ER with chief complaint of shortness of breath. Patient reports two days ago she experienced shortness of breath which is mostly exertional and can walk up to only 10-15 feet before becoming breathless, and for the past two days she is also complaining of short of breath when lying completely flat due to which she sleeps in a reclined position. She reports home oxygen saturation reading of 88% with oxygen and 85% without oxygen. SHe also complains of often cold sweats and had one episode of vomiting approximately half a cup in volume which was foamy, did not contain any blood. In addition to that she is also complaining of chest pain which is sharp 2-4/10 intensity radiating into the neck and chest pain is worsened with cough. Patient also report history of PE, but at the same she is unsure about it , and she reports she dont take any blood thinners except aspirin 81 mg. Patient average blood pressure is 110/71 , as per phone kedar record. She is coming from [facility] at [address] [place] [address]. Patient reports she missed her one dose adempas because she was coming here and she did not bring her medications at hospital because she reports she was told by EMS not to bring medications as you will get all medications to hospital. Patient reports she will get pulmonary hypertension medications in morning at 6 am. Patient used oxygen at home 2-4 L 18/10. Patient follows up at [facility] for pulmonary arterial hypertension, she quit sildenafil two months ago in, currently ambersartan, adempas. She also had cardiac catheterization done at [facility] by Dr. Lobo Pineda at [facility], patient reports that cardiac catheterization was done on 08 November 2024 patient reports his cardiac catheterization showed right ventricular failure. PCP is Dr. Tavon Ruiz at [facility]. Internet Marketing Intern is Zully Ashford at [facility] Grinding Wheel Facer is Misael Suresh Allergies: Coded Allergies: Penicillins (Verified Allergy, Unknown, Rash, 11/30/24) Home Medications Home Medications Active Lasix (Furosemide) 40 Mg Tablet 1 Tab PO TID 30 Days Do not take if blood pressure is less than 90/60 mmHg. Take 3 times a day, but avoid taking after 5:00 p.m. so you can sleep without waking up to go to the bathroom. You can take at 6am, 12am and 4pm, but you are allowed to a adapt based on your medication schedule. Carvedilol 3.125 Mg Tablet 0.5 Tab PO Q12H 30 Days Do not take the medication if blood pressure is less than 90/60 mmHg Sildenafil (Sildenafil Citrate) 20 Mg Tablet 1 Tab PO Q8H 30 Days Atorvastatin Calcium 20 Mg Tablet 20 Mg PO DAILY 30 Days Aspirin 81 Mg Tab.chew 1 Tab PO DAILY 30 Days Culturelle (Lactobacillus Rhamnosus) 10 Billion Cell Capsule 1 Cap PO BID 30 Days Reported Lamotrigine 25 Mg Tablet 25 Mg PO DAILY Naltrexone Hcl 50 Mg Tablet 1 Tab PO DAILY Prazosin Hcl 1 Mg Capsule 1 Cap PO HS Seroquel (Quetiapine Fumarate) 25 Mg Tablet 1 Tab PO HS 30 Days Habitrol 14 MG Patch* (Nicotine) 1 Each Patch.td24 1 Patch TD DAILY Hydroxyzine HCl 50 Mg Tablet 1 Tab PO HS Past Medical History Past Medical History DM type 2 HTN Stage II CHF Pulmonary arterial hypertension Stage 3 DVT Past Surgical History Surgical History Comment Denies past surgical history. Family History Family History: Blood clots MOTHER FH: breast cancer MOTHER FH: heart disease FATHER MOTHER FH: stroke FATHER Past Social History Social History Comment Smokes 4-6 Ciggrates daily, since age 12 Quit alcohol 12 years ago, before that she used to drink all time. Smoked pots 10 years ago. Quit methamphetamine 6 months. Denies other illicit drug use history PCP is Dr. Tavon Ruiz at [facility]. Internet Marketing Intern is Zully Ashford at [facility] Grinding Wheel Facer is Misael Suresh ROS ROS All reviewed and negative except for pertinent positive findings mentioned in HPI. Exam Vitals: Vital Signs Date Time Temp Pulse Resp B/P (MAP) Pulse Ox O2 Delivery O2 Flow Rate FiO2 02/24/25 21:09 92 Simple Mask* 4 N/A 02/24/25 21:06 97.9 71 22 111/62 (78) General: General: awake, alert oriented to place, time, and person HEENT: No pallor present, icterus present, moist mucous membranes Neck: No masses and tenderness Resp: in respiratory distress, wheezing and crackles on examination, S1 S1 normal, no murmur or rub. Chest: Normal expansion. Cardiovascular: Regular Rate and rhythm, normal S1 and S2 without murmur, rub or gallop Abdomen: Soft and non tender in epigastrium, no organomegaly, no guarding and rigidity, bowel sounds present Neuro: No focal weakness in the upper and lower limb muscles, power of the muscles 5/5 bilateral upper and lower extremities, normal reflexes bilaterally. Cranial nerves intact Extremities: No cyanosis,clubbing or edema Skin: Warm and Dry. Psych: Normal affect Diagnostic Data Last Recorded Lab Results: 02/24/25182702/24/251827 Advance Care Planning Advanced Care plannin - 30 Minutes (I spent 17 minutes in discussing various resuscitative measures with patient and she choose to be full code.) Additional Plan Acute hypoxemic respiratory failure likely secondary to COPD exacerbation Acute on chronic heart failure with preserved ejection secondary to PH, methamphetamine use Heart Score 4 Echo on 12/01/24:Overall LVEF is 65-70%. Reduced LV size with normal wall thickness. Overall systolic function is normal. Flattened septum consistent with right ventricular volume and pressure overload. Probnp 876 Chest x-ray shows vascular congestion, crackles and wheezing present on examination Continue spirnolactone 25 and bumex 2 mg. Received one dose of Bumex in ER Patient reports she recently had the flu which could contribute to COPD exacerbation Incentive spirometry, Duonebs q4H prn Patient received one dose of Solu-Medrol 125 mg in ER Maintaining oxygen satt on 4 L of air. Start patient on Solu-Medrol 60 mg daily, rocephin 1 gm and doxycycline(Due to prolong QT interval). Strict Is&Os and daily weights On home oxygen 2-4 L (18/10). Patient reports she had cardiac catheterization Dr. Lobo Pineda at [facility],as per patient which showed right ventricular failure , however CTA chest done here at [facility] negative for PE. Lexiscan on Reversible defects of the septum, anterior argueta. Global dyskinesis 2. Pulmonary Hypertension (PAH) Stage 3 Cor Pulmonale Patient reports she has stage 3 PAH Patient follows up at [facility] for pulmonary arterial hypertension, she quit sildenafil two months ago in, currently ambrisentan, adempas. Echo on 11/27/24: Right ventricle is severely dilated with reduced systolic function. Estimated PA systolic pressure is 65 mmHg,LVEF 65-70%. Requested patient to bring adempass from home, as its not available in pharmacy. Continue Ambrisentan 10 mg Her average blood pressure is 105/70 as per her phone application records. Patient having PH usually have soft BP. CTA chest negative for PE Patient reports she will get pulmonary hypertension medications in morning at 6 am, transfer patient to High level of care if she dont get her medications ,as skipping medication can cause rebound pulmonary hypertension. Consult Grinding Wheel Facer in am History of Pulmonary Embolism Patient reports she was diagnosed with PE however she also reports she is not sure, she is not on any anticoagulant, reports does not use blood thinner except aspirin 81 mg She just use aspirin 81 mg daily, CT CHEST NEGATIVE FOR PE Type 2 ME likely secondary to pulmonary arterial hypertension Trops elevated strain on right heart which can cause elevated Trops. Trops 62,62,56 EKG shows no STEMI, sinus rhythm Received aspirin 324 mg and Lovenox 75 mg in ER Continue aspirin 81 mg LDL 46 , Cholestrol 123 Patient reports that on 08 November 2024 she had cardiac catheterization which showed right heart failure and pulmonary embolism. Hyperbilirubinemia Total Bilibrubin 2.5 Direct biliruin elevated , Elevated Alkaline phosphatase , follow up with [facility]. Hep A ,Hep Cantibody , Hep Bcoreantibody Igm and HbsAg negative on 09/12/24 Follow up with Abdominal U/S. Type 2 diabetes mellitus A1c on 02/24/25 : 5.1 On low-dose supplemental insulin protocol Tobacco use disorder Substance use navigator consulted Code status full code DVT prophylaxis heparin GI prophylaxis pantoprazole 40 mg p.o. Disposition: Continue monitoring patient, Please be careful while adminstering any hypertensive medcation including nitroglycern, patient quit sildenafil 2 months ago and currently on ambrisentan, adempas. Her Average blood pressure is 110/71 as per phone kedar She is coming from [facility] at [address] [place] [address]. Patient reports she missed her one dose adempas because she was coming here and she did not bring her medications at hospital because she reports she was told by EMS not to bring medications as you will get all medications to hospital. Patient reports she will get pulmonary hypertension medications in morning at 6 am, transfer patient to High level of care if she dont get her medications. Jimi Elizabeth PGY 1 IM Date of Service: Feb 24, 2025 Billing Provider: MARIO MCQUEEN MD Addendum agree with resident recommend restarting the home PHT meds as soon as possible- advised the patient to bring her own home meds abx- ceftriaxone and doxy patient is not on anticoagulation at home even thought there is a history of PE in the past CT chest this admisison is negative for PE recommend pulmonary consul in am JIMI ELIZABETH, RES Feb 24, 2025 22:02 MARIO MCQUEEN MD Feb 25, 2025 04:28
[2025-02-24] MEDS ORDERED: BUME2TAB7 PO (22:06)
[2025-02-24] MEDS ORDERED: AMBR10TA5 PO (22:06)
[2025-02-24] MEDS ORDERED: CARV3.122 PO (22:06)
[2025-02-24] MEDS ORDERED: RIOC1.5T PO (22:07)
[2025-02-24] MEDS ORDERED: ZOLP5TAB18 PO (22:08)
[2025-02-24 22:18] LABS: LEUKOCYTE ESTERASE ,URINE NEGATIVE (Neg); NITRITES, URINE NEGATIVE (Neg); OCCULT BLOOD,URINE TRACE-INTACT (Neg)
[2025-02-24 22:21] LABS: UA COLLECTION TYPE NON-SPECIFIED
[2025-02-24 22:25] LABS: SQUAMOUS EPITHELIAL CELL,UR FEW /LPF (FEW)
[2025-02-24 22:27] LABS: URINE AMPHETAMINE SCREEN NEGATIVE (Neg); URINE BARBITUATE SCREEN NEGATIVE (Neg); URINE BENZODIAZEPINES SCREEN NEGATIVE (Neg); URINE CANNABINOID SCREEN NEGATIVE (Neg); URINE COCAINE SCREEN NEGATIVE (Neg); URINE METHADONE SCREEN NEGATIVE (Neg); URINE OPIATE SCREEN NEGATIVE (Neg); URINE PHENCYCLIDINE SCREEN NEGATIVE (Neg)
[2025-02-24] MEDS ORDERED: POTA-207 PO (22:30)
[2025-02-24] MEDS ORDERED: EMPA10TA PO (22:31)
[2025-02-24] MEDS ORDERED: ASPI-611 PO (22:31)
[2025-02-24] MEDS ORDERED: ATOR20TA66 PO (22:31)
[2025-02-24] MEDS ORDERED: NICO-687 TOP (22:33)
[2025-02-24] MEDS ORDERED: SPIR25TA5 PO (22:33)
[2025-02-24 22:48] LABS: CHOL/HDL RATIO 1.9 (0.00-4.99); LDL CHOLESTEROL 46 MG/DL (50-100)
--- NOTE | 2025-02-24 22:57 | RADIOLOGY REPORT ---
CTA Chest with intravenous contrast INDICATION: pe history , sob , pulmonary hypertension COMPARISON: DI CHEST,SINGLE VIEW on DOS: 02/24/25, DI CHEST,SINGLE VIEW on DOS: 01/15/25, DI CHEST,SINGLE VIEW on DOS: 11/30/24, DI CHEST,SINGLE VIEW on DOS: 10/22/24, DI CHEST,SINGLE VIEW on DOS: 10/04/24 TECHNIQUE: Multidetector spiral CTA of the chest was performed of the chest with intravenous contrast. PULMONARY ANGIOGRAPHY PROTOCOL was utilized using a bolus- tracking technique centered on the main pulmonary artery. Axial, coronal and sagittal multiplanar and MIP reformats were performed. Radiation Dose : 1. Chest: CTDI volume is 15.88 mGy. Dose-length product is 567.04 mGy*cm The dose indicators for CT are the volume Computed Tomography (CT) Dose Index (CTDIvol) and the Dose Length Product (DLP), and are measured in units of mGy and mGy-cm, respectively. These indicators are not patient dose, but values generated from the CT scanner acquisition factors. The report includes radiation exposure data for exposures received during this examination. Findings: Pulmonary artery: No pulmonary embolism Lower neck: Normal thyroid. Lungs: Mild bronchial wall thickening. Streaky bibasilar atelectatic changes. Heart/Vascular Structures: Normal heart size. No pericardial effusion. Lymph Nodes: No adenopathy Pleura: No pleural effusion or significant pneumothorax. Musculoskeletal: No acute osseous abnormality. Soft tissues: Normal. Upper abdomen: Limited portions of the upper abdomen are unremarkable. IMPRESSION: No pulmonary embolus. Airways inflammation with streaky atelectatic changes.
[2025-02-24] MEDS ORDERED: DEXTROSE 15 GM of carb/4 tabs (each vial/BOTTLE has 4 tablets) PO PRN ×2 (23:20)
[2025-02-24] MEDS ORDERED: dextrose 50%-water 50ml dispensing syringe IV PRN ×2 (23:20)
[2025-02-24] MEDS ORDERED: glucagon, human recombinant 1mg kit SUBCUT PRN (23:20)
[2025-02-25] VITALS (12 sets, daily range): BP systolic 103–120; BP diastolic 53–74; PULSE 65–87; RESP 12–22; TEMP 97.3–97.7; O2SAT 84–96
[2025-02-25 00:19] LABS: INFLUENZA TYPE A ANTIGEN RAPID NEGATIVE (Negative); INFLUENZA TYPE B ANTIGEN RAPID NEGATIVE (Negative)
--- NOTE | 2025-02-25 03:22 | ELECTROCARDIOGRAPH REPORT ---
[facility] Test Date: 2025-02-25 Test Time: 03:19:19 Pat Name: ALDAIR ESCALERA Department: [facility]-ED [facility] Patient ID: [facility]-[id number] Room: ED 7 1 Gender: F Strategic Planning Consultant: : 1985 Requested By: SYMONE PEREZ Order Number: [id number] Reading MD: Dr. Jose E Horvath Measurements Intervals [place] Rate: 72 P: 57 FL: 169 QRS: 92 QRSD: 122 T: 13 QT: 494 QTc: 541 Interpretive Statements Sinus rhythm RBBB and LPFB Electronically Signed On 02-25-2025 5:01:[address] Jose E Horvath Please click the below link to view image of tracing.
[2025-02-25] MEDS: mag hydrox/Alum hydrox/simeth 30ml oral suspension PO PRN (03:28)
[2025-02-25 06:26] LABS: URINE HCG NEGATIVE (NEG)
[2025-02-25 06:47] LABS: MEAN PLATELET VOLUME 6.5 FL (7.4-10.4); RED CELL DISTRIBUTION WIDTH 12.6 % (11.5-14.5)
[2025-02-25 06:58] LABS: APTT 33 SECONDS (22-32); INR 1.0 INR
[2025-02-25] MEDS: INSULIN LISPRO 100 UNIT/ML INSULN.PEN MULTI-DOSE SQ SCH (07:00)
[2025-02-25 07:25] LABS: CREATININE 1.22 MG/DL (0.40-0.90); PHOSPHORUS 3.4 MG/DL (2.3-4.5); TOTAL CARBON DIOXIDE 28.0 MMOL/L (24-32); eCRCL 65 ML/MIN; eGFR 49 ML/MIN
[2025-02-25 07:35] LABS: HCG SERUM QL NEGATIVE
[2025-02-25] MEDS: K and/or MAG REPLACEMENT MC SCH (08:00)
[2025-02-25] MEDS: docusate sod 100mg capsule PO SCH (08:00)
[2025-02-25] MEDS: aspirin 81mg, enteric-coated 1 TAB TABLET.DR PO SCH (08:36)
[2025-02-25] MEDS: pantoprazole 40mg Tablet.DR PO SCH (08:38)
--- NOTE | 2025-02-25 08:40 | RADIOLOGY REPORT ---
INDICATION: ELEVATED BILIRUBIN LEVEL TECHNIQUE: Multiple real-time sonographic images of the abdomen were obtained. COMPARISON: CT CT ABDOMEN PELVIS W/ IV CONTRAST on DOS: 09/11/24, US ULTRASOUND OF ABDOMEN on DOS: 09/11/24 FINDINGS: The liver is heterogeneous and coarse in echogenicity. The liver measures 17.4 cm. No intrahepatic biliary ductal dilatation is noted. The gallbladder wall measures 0.2 cm and is unremarkable. There is a gallstone measuring 0.5 cm. There is sludge in the gallbladder. The common duct measures 0.2 cm and is unremarkable. No pericholecystic fluid is noted. Negative sonographic michele's sign. The right kidney measures 10.9 cm. No hydronephrosis. The pancreas is not well visualized due to obscuration from bowel gas. The visualized portions of the IVC and aorta are grossly unremarkable. IMPRESSION: 1. Cholelithiasis and gallbladder sludge without sonographic evidence of acute cholecystitis. 2. Heterogeneous and coarse liver parenchyma suggestive of chronic liver disease.
[2025-02-25] MEDS: heparin, porcine 5000 units/ml vial SQ SCH (08:47)
[2025-02-25] MEDS: CefTRIAXone/D5W-Rocephin 1gm 50 ML IV SCH (08:47)
[2025-02-25] MEDS: ondansetron/PF 4mg/2ml inj IV PRN (09:40)
[2025-02-25] MEDS: doxycycline 100mg/NS 100mL PB 100 ML IV SCH (09:46)
--- NOTE | 2025-02-25 17:02 | PROGRESS NOTE- Residence ---
Progress Note - Resident Providers to CC Resident Creating Document: OVIDIO MORAN, [place] ~ Central Line/PICC still needed: No Prater-Non Protocol Prater Indications Met/Not Met: F/C Indications Not Met Antibiotic Timeout Antibiotic Ordered?: No Subjective Patient was examined bedside. Maintaining oxygen saturation with 6 L O2 via mask. He is complaining of generalized itching over her body and rashes in her hand. No changes were made in her medication. Objective Vital Signs Date Time Temp Pulse Resp B/P (MAP) Pulse Ox O2 Delivery O2 Flow Rate FiO2 02/25/25 15:00 97.6 73 19 110/63 (79) 96 Venturi Mask 15.0 02/25/25 12:28 50 Result Diagram: 02/25/2562402/25/25624 General: Well alert, well oriented, not confused, not agitated, not in acute distress, well cooperated during the physical. HEENT: Conjunctive are pink, sclerae clear, no icterus, pupil is equal in both sides, reactive to light, no ear discharge, no pharyngeal erythema or an edema. Neck: Supple, no JVD, no lymphadenopathy and thyromegaly. Chest: Equal air entry on both lungs, no added sounds, no wheeze. Cardiovascular: S1-S2 regular sinus rhythm and, regular rate, no gallops, no rubs, no murmurs Abdomen: No visible peristalsis, Bowel sounds present on auscultation, soft, nontender, no guarding, no rigidity Extremities: No obvious deformities, no pitting edema bilaterally, capillary refill intact, peripheral pulsations are intact on both sides Central Nervous System: No focal neurological deficits, no motor or sensory weakness in all 4 extremities, could move all 4 extremities, 2+ deep tendon reflexes, negative Babinski. Musculoskeletal: No joint swelling, deformities, inflammations, and no scoliosis and back tenderness Skin: Warm and dry. Coagulation Studies Laboratory Tests Test 02/25/25 06:25 Prothrombin Time 10.3 SECONDS (9.0-12.0) INR International Normalized Ratio 1.0 INR Activated Partial Thromboplast Time 33 SECONDS (22-32) H Coagulation Comments Counseling Services Smoking & Tobacco Cessation: N/A Advance Care Planning Advanced Care planning: N/A Assessment Assessment This is a 39-year-old female with past medical history of COPD, CHF secondary to pulmonary artery hypertension and methamphetamine use, type 2 diabetes who came in from [facility] this could be project with complaints of shortness of Breath. She was found to be in acute hypoxic respiratory failure secondary to COPD exacerbation and acute exacerbation of CHF. She is being treated for pulmonary artery hypertension and [facility]. Plan Plan Acute hypoxemic respiratory failure secondary to COPD exacerbation And acute on chronic heart failure with preserved ejection fraction secondary to pulmonary Denise hypotension and methamphetamine use. Pulmonary embolism ruled out with CTA chest in ER Heart score of 3. Vitals: Stable Chest x-ray shows pulmonary vascular congestion EKG: Sinus rhythm, no ischemic changes Previous echo 11/27/2024 shows ejection fraction of 65-70% with RVSP of 65. NT proBNP 876 Incentive spirometry, DuoNebs q.4h Continue Solu-Medrol 60 mg p.o. daily, Rocephin 1 mg and doxycycline day 1. Continue home medication Jardiance 10 mg p.o. daily, aspirin 81 mg p.o. daily, Bumex 2 mg p.o. b.i.d. atorvastatin 20 mg p.o. daily and spironolactone 25 mg p.o. daily Held carvedilol in view of soft blood pressure and heart rate in 60s. We will reassess and continue tomorrow. Strict input and output monitoring and daily weights Group 1 Pulmonary artery hypertension with functional stage III Cor pulmonale Patient follows up with [facility] for pulmonary artery hypertension She underwent right heart catheterization couple of months ago. Continue home medication a Adempas 1 mg and ambrisentan 10 mg Type 2 NM likely secondary to pulmonary artery hypertension Elevated trops-downtrending EKG, sinus rhythm no ischemic changes Received aspirin 325 mg in the ER, continue aspirin 81 mg. Congestive hepatopathy Total bilirubin 2.5, direct bilirubin elevated. Similar trends in her previous LFTs. Abdominal ultrasound shows cholelithiasis with gallbladder sludge without evidence of cholecystitis, and heterogeneous and coarse of the parenchyma. Serology including hepatitis panel negative patient complaining of generalized itching. Started the patient on Benadryl 50 mg q.6h, we will evaluate tomorrow. Type 2 diabetes Hemoglobin A1c 5.2 Continue Jardiance 10 mg p.o. daily Code status: Full code DVT prophylaxis: Heparin 5000 subcutaneous q.8h Analgesia/sedation: Morphine/[place] Line/tube: PIV GI prophylaxis: None Nutrition: Heart healthy diet with 75 g carb controlled PT: Ordered. Prognosis: Guarded Disposition: Continue medical management. Ovidio Moran MD PGY1, Internal Medicine [facility] Date of Service: Feb 25, 2025 Billing Provider: SHOBHA CUEVA MD Common Visit Codes: [id number] INP/OBS CARE(HIGH) OVIDIO MORAN, RES Feb 25, 2025 17:02 SHOBHA CUEVA MD Feb 26, 2025 07:41
[2025-02-26] VITALS (18 sets, daily range): BP systolic 98–120; BP diastolic 39–65; PULSE 64–93; RESP 13–24; TEMP 96.7–98.3; O2SAT 90–98
[2025-02-26 06:03] LABS: MEAN PLATELET VOLUME 6.8 FL (7.4-10.4); RED CELL DISTRIBUTION WIDTH 12.3 % (11.5-14.5)
[2025-02-26 06:13] LABS: APTT 26 SECONDS (22-32); INR 0.9 INR
[2025-02-26 06:22] LABS: CREATININE 1.23 MG/DL (0.40-0.90); PHOSPHORUS 3.5 MG/DL (2.3-4.5); TOTAL CARBON DIOXIDE 29.3 MMOL/L (24-32); eCRCL 64 ML/MIN; eGFR 49 ML/MIN
[2025-02-26] MEDS: EMPAGLIFLOZIN 10 MG TABLET PO SCH (07:59)
[2025-02-26] MEDS: ipratropium/albuterol 3ml nebule NEB PRN (09:30)
[2025-02-26] MEDS: ipratropium/albuterol 3ml nebule NEB SCH (12:01)
[2025-02-26] MEDS: DOXYCYCLINE 100MG CAPSULE PO ONE (12:41)
--- NOTE | 2025-02-26 17:23 | PROGRESS NOTE- Residence ---
Progress Note - Resident Providers to CC Resident Creating Document: OVIDIO MORAN RES ~ Central Line/PICC still needed: N\A Prater-Non Protocol Prater Indications Met/Not Met: F/C Indications Not Met Antibiotic Timeout Antibiotic Ordered?: Yes Subjective Patient was examined bedside. Maintaining oxygen saturation with 15 L O2 via mask. Her complaints of generalized burning itching , mainly in the upper extremity, around the sticker sites reduced with Benadryl. No acute symptoms overnight. Objective Vital Signs Date Time Temp Pulse Resp B/P (MAP) Pulse Ox O2 Delivery O2 Flow Rate FiO2 02/26/25 16:34 72 18 Nasal Cannula 6.0 28 Venturi Mask 02/26/25 16:27 92 02/26/25 10:57 97.9 117/60 (79) Result Diagram: 02/27/25 0647 02/26/25 0546 General: Well alert, well oriented, not confused, not agitated, not in acute distress, well cooperated during the physical. HEENT: Conjunctive are pink, sclerae clear, no icterus, pupil is equal in both sides, reactive to light, no ear discharge, no pharyngeal erythema or an edema. Neck: Supple, no JVD, no lymphadenopathy and thyromegaly. Chest: Equal air entry on both lungs, bilateral diffuse wheeze in all lung quadrants, bilateral basal Crepts. Cardiovascular: S1-S2 regular sinus rhythm and, regular rate, no gallops, no rubs, no murmurs Abdomen: No visible peristalsis, Bowel sounds present on auscultation, soft, nontender, no guarding, no rigidity Extremities: No obvious deformities, no pitting edema bilaterally, capillary refill intact, peripheral pulsations are intact on both sides Central Nervous System: No focal neurological deficits, no motor or sensory weakness in all 4 extremities, could move all 4 extremities, 2+ deep tendon reflexes, negative Babinski. Musculoskeletal: No joint swelling, deformities, inflammations, and no scoliosis and back tenderness Skin: Warm and dry. Coagulation Studies Laboratory Tests Test 02/26/25 05:46 Prothrombin Time 9.7 SECONDS (9.0-12.0) INR International Normalized Ratio 0.9 INR Activated Partial Thromboplast Time 26 SECONDS (22-32) Coagulation Comments Assessment Assessment This is a 39-year-old female with past medical history of COPD, CHF secondary to pulmonary artery hypertension and methamphetamine use, type 2 diabetes who came in from [facility] with complaints of shortness of Breath. She was found to be in acute hypoxic respiratory failure secondary to COPD exacerbation and acute exacerbation of CHF. She is being treated for pulmonary artery hypertension and [facility]. Her doctor in [facility] was contacted today in view of low diastolic blood pressures. He recommended to continue the current dose of adempas, unless she is having sustained low diastolic blood pressure, symptomatic hypotension. On auscultation today, she had predominant wheeze rather than crepitations. Plan Plan Acute hypoxemic respiratory failure secondary to COPD exacerbation And acute on chronic heart failure with preserved ejection fraction secondary to pulmonary artery hypertension and methamphetamine use. Pulmonary embolism ruled out with CTA chest in ER Heart score of 3. Vitals: Episodes of of hypotension with diastolic blood pressure going was 55 overnight, asymptomatic. Chest x-ray shows pulmonary vascular congestion Chest CTA shows bronchitis picture. EKG: Sinus rhythm, no ischemic changes Previous echo 11/27/2024 shows ejection fraction of 65-70% with RVSP of 65. NT proBNP 876 Incentive spirometry, DuoNebs q.4h , doxycycline 100 mg p.o. b.i.d.. Bumex 2 mg IV b.i.d. with 1.5 L fluid restriction. Continue Solu-Medrol 60 mg p.o. daily, Rocephin 1 mg and doxycycline day 1. Continue home medication Jardiance 10 mg p.o. daily, aspirin 81 mg p.o. daily, atorvastatin 20 mg p.o. daily and spironolactone 25 mg p.o. daily Held carvedilol in view of soft blood pressure and heart rate in 60s. We will reassess and continue tomorrow. Strict input and output monitoring and daily weights Group 1 Pulmonary artery hypertension with functional stage III Cor pulmonale Continue home medication a Adempas 1.5 mg and ambrisentan 10 mg To reduce the adempas to 1 mg in case the patient is having symptomatic and sustained hypotension. Type 2 OR likely secondary to pulmonary artery hypertension Elevated trops-downtrending EKG, sinus rhythm no ischemic changes Received aspirin 325 mg in the ER, continue aspirin 81 mg. Congestive hepatopathy Total bilirubin 2.5, direct bilirubin elevated. Similar trends in her previous LFTs. Abdominal ultrasound shows cholelithiasis with gallbladder sludge without evidence of cholecystitis, and heterogeneous and coarse of the parenchyma. Serology including hepatitis panel negative Type 2 diabetes Hemoglobin A1c 5.2 Continue Jardiance 10 mg p.o. daily Code status: Full code DVT prophylaxis: Heparin 5000 subcutaneous q.8h Analgesia/sedation: Morphine/[place] Line/tube: PIV GI prophylaxis: None Nutrition: Heart healthy diet with 75 g carb controlled with 1.5 L fluid restriction PT: Ordered. Prognosis: Guarded Disposition: Continue medical management. Ovidio Moran MD PGY1, Internal Medicine [facility] Addendum poss ac bronchitis, on doxy Date of Service: Feb 26, 2025 Billing Provider: SHOBHA CUEVA MD Common Visit Codes: [id number] INP/OBS CARE(HIGH) OVIDIO MORAN, RES Feb 26, 2025 17:23 SHOBHA CUEVA MD Feb 27, 2025 07:36
[2025-02-26] MEDS: DOXYCYCLINE 100MG CAPSULE PO SCH (20:47)
[2025-02-27] VITALS (11 sets, daily range): BP systolic 105–123; BP diastolic 57–67; PULSE 61–99; RESP 13–18; TEMP 96.3–97.5; O2SAT 88–98
[2025-02-27 07:06] LABS: MEAN PLATELET VOLUME 6.7 FL (7.4-10.4); RED CELL DISTRIBUTION WIDTH 12.4 % (11.5-14.5)
[2025-02-27 07:20] LABS: APTT 25 SECONDS (22-32)
[2025-02-27 07:24] LABS: INR 0.9 INR
[2025-02-27 07:57] LABS: CREATININE 1.05 MG/DL (0.40-0.90); PHOSPHORUS 4.1 MG/DL (2.3-4.5); TOTAL CARBON DIOXIDE 29.1 MMOL/L (24-32); eCRCL 75 ML/MIN; eGFR 58 ML/MIN
[2025-02-27] MEDS ORDERED: salt irrigation nasal spray 45 ML SPRAY NS PRN (10:20)
[2025-02-27] MEDS ORDERED: IPRA3AMP9 NEB (10:44)
[2025-02-27] MEDS ORDERED: BUME2TAB7 PO (10:44)
[2025-02-27] MEDS ORDERED: DOXY-243 PO (10:44)
[2025-02-27] MEDS: nicotine 14mg patch - 24hr TD SCH (10:59)
--- NOTE | 2025-02-27 15:17 | DISCHARGE SUMMARY-Residence ---
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 pulmonary artery hypertension Congestive hepatopathy Type 2 diabetes Operations\Procedures: None Consultants: None Complications: None Condition on DC: Stable New Medications: Doxycycline Hyclate (Doxycycline Hyclate) 100 Mg Tablet.dr 100 MG PO BID for 5 Days, #10 TAB Ipratropium/Albuterol Sulfate (IPRAT-ALBUT 0.5-3(2.5) MG/3 ML nebule) 0.5 Mg-3 Mg (2.5 Mg Base)/3 Ml Ampul.neb 1 VIAL NEB Q8H for 7 Days, #21 VIAL 0 Refills Changed Medications: Bumetanide (Bumetanide) 2 Mg Tablet 2 TAB PO TID for 30 Days, #90 TAB (Changed from: QAM) Continued Medications: Ambrisentan (Ambrisentan) 10 Mg Tablet 1 TAB PO Q24H for 30 Days, #30 TAB 0 Refills Aspirin (Aspir 81) 81 Mg Tablet.dr 1 TAB PO DAILY for 30 Days, #30 TAB Atorvastatin Calcium (Atorvastatin Calcium) 20 Mg Tablet 1 TAB PO DAILY for 30 Days, #30 TAB 0 Refills Carvedilol (Carvedilol) 3.125 Mg Tablet 1 TAB PO BIDBD for 30 Days, #60 TAB 0 Refills Empagliflozin (Jardiance) 10 Mg Tablet 1 TAB PO QAM Hydroxyzine HCl (Hydroxyzine HCl) 50 Mg Tablet 1 TAB PO TID Nicotine 21 MG Patch* (Habitrol 21 MG Patch*) 1 Each Patch.td24 1 PATCH TOP DAILY Potassium Chloride* (K-Dur*) 20 Meq Tab.prt.sr 1 TAB PO DAILY Prazosin Hcl (Prazosin Hcl) 1 Mg Capsule 2 CAP PO HS Riociguat (Adempas) 1.5 Mg Tablet 1 TAB PO Q8H Spironolactone (Spironolactone) 25 Mg Tablet 1 TAB PO DAILY Zolpidem Tartrate (Zolpidem Tartrate) 5 Mg Tablet 1-1.5 TAB PO HS PRN for sleep Discharge Summary: History of present illness: This is a 39-year-old female who has been diagnosed with CHF with preserved ejection fraction, COPD, diabetes type 2, pulmonary artery hypertension, DVT who came to the ER with complaints of progressive shortness of breath, and orthopnea. Her shortness of breath progressed to an extent where she is breathless at rest. She also complained of cough with copious amount of whitish phlegm. She has been complaining of chest pain, left lateral, 2/10 in intensity, radiating to neck a worsened with cough. Patient reported that she missed a few doses of her Adempas. She is treated for pulmonary artery hypertension in [facility]. She had a recent right heart catheterization in October 2024. PCP is Dr. Tavon Ruiz at [facility]. 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 Pulmonary embolism was ruled out in the ER with CTA chest. She seemed to be in a fluid overload state. Her home dose of Bumex was increased to 2 mg IV b.i.d. with fluid restrictions. She has been diuresing well. Rest of her home m edications were continued. She was treated with doxycycline (in view of QT prolongation) and DuoNeb for acute bronchitis. She had mild elevation of troponin on arrival, which was down trending. EKG showed no ischemic changes. This was likely type 2 VA secondary to pulmonary artery hypertension CMP showed hyperbilirubinemia with elevated liver enzymes an ultrasound showed course liver architecture, unchanged from previous echo pointing towards her previous diagnosis of congestive hepatopathy. She improved with above treatment, she was hemodynamically stable and symptomatically better and hence being discharged with the following instructions. Vital Signs Date Time Temp Pulse Resp B/P (MAP) Pulse Ox O2 Delivery O2 Flow Rate FiO2 02/27/25 11:02 66 16 Venturi Mask 3.0 24 02/27/25 11:01 97.5 123/67 (85) 94 Laboratory Tests Test 02/25/25 22:21 12/2/25 05:46 02/26/25 12:08 02/26/25 17:09 Glucometer 139 mg/dl 152 mg/dl 154 mg/dl White Blood Count 6.6 X10'3 Red Blood Count 4.33 X10'6 Hemoglobin 13.2 g/dl Hematocrit 38.2 % Mean Corpuscular Volume 88.4 FL Mean Corpuscular Hemoglobin 30.5 PG Mean Corpuscular Hemoglobin Concent 34.6 g/dL Red Cell Distribution Width 12.3 % Platelet Count 254 X10'3 Mean Platelet Volume 6.8 FL Neutrophils (%) (Auto) 91.5 % Lymphocytes (%) (Auto) 7.2 % Monocytes (%) (Auto) 1.2 % Eosinophils (%) (Auto) 0 % Basophils (%) (Auto) 0.1 % Neutrophils # (Auto) 6.0 X10'3 Lymphocytes # (Auto) 0.5 X10'3 Monocytes # (Auto) 0.1 X10'3 Eosinophils # (Auto) 0.0 X10'3 Basophils # (Auto) 0.0 X10'3 CBC Comment Prothrombin Time 9.7 SECONDS INR International Normalized Ratio 0.9 INR Activated Partial Thromboplast Time 26 SECONDS Coagulation Comments Sodium Level 135 MMOL/L Potassium Level 4.2 MMOL/L Chloride Level 99 MMOL/L Carbon Dioxide Level 29.3 MMOL/L Anion Gap 7 Blood Urea Nitrogen 26 MG/DL Creatinine 1.23 MG/DL Estimated GFR/1.73 m2 49 ML/MIN BUN/Creatinine Ratio 21.1 Glucose Level 196 MG/DL Calcium Level 9.0 MG/DL Phosphorus Level 3.5 MG/DL Magnesium Level 2.4 MG/DL Total Bilirubin 1.4 MG/DL Aspartate Amino Transf (AST/SGOT) 19 U/L Alanine Aminotransferase (ALT/SGPT) 30 U/L Alkaline Phosphatase 152 IU/L Total Protein 7.9 G/DL Albumin 3.9 G/DL Globulin 4.0 G/DL Albumin/Globulin Ratio 1.0 Chemistry Comments Test 02/26/25 20:44 02/27/25 06:47 Glucometer 191 mg/dl White Blood Count 7.7 X10'3 Red Blood Count 4.21 X10'6 Hemoglobin 13.0 g/dl Hematocrit 37.2 % Mean Corpuscular Volume 88.3 FL Mean Corpuscular Hemoglobin 30.9 PG Mean Corpuscular Hemoglobin Concent 35.0 g/dL Red Cell Distribution Width 12.4 % Platelet Count 280 X10'3 Mean Platelet Volume 6.7 FL Neutrophils (%) (Auto) 90.0 % Lymphocytes (%) (Auto) 6.6 % Monocytes (%) (Auto) 3.4 % Eosinophils (%) (Auto) 0 % Basophils (%) (Auto) 0 % Neutrophils # (Auto) 7.0 X10'3 Lymphocytes # (Auto) 0.5 X10'3 Monocytes # (Auto) 0.3 X10'3 Eosinophils # (Auto) 0.0 X10'3 Basophils # (Auto) 0.0 X10'3 CBC Comment Prothrombin Time 9.5 SECONDS INR International Normalized Ratio 0.9 INR Activated Partial Thromboplast Time 25 SECONDS Coagulation Comments Sodium Level 139 MMOL/L Potassium Level 3.5 MMOL/L Chloride Level 100 MMOL/L Carbon Dioxide Level 29.1 MMOL/L Anion Gap 10 Blood Urea Nitrogen 29 MG/DL Creatinine 1.05 MG/DL Estimated GFR/1.73 m2 58 ML/MIN BUN/Creatinine Ratio 27.6 Glucose Level 158 MG/DL Calcium Level 9.0 MG/DL Phosphorus Level 4.1 MG/DL Magnesium Level 2.5 MG/DL Total Bilirubin 1.0 MG/DL Aspartate Amino Transf (AST/SGOT) 14 U/L Alanine Aminotransferase (ALT/SGPT) 28 U/L Alkaline Phosphatase 141 IU/L Total Protein 7.9 G/DL Albumin 3.9 G/DL Globulin 4.0 G/DL Albumin/Globulin Ratio 1.0 Chemistry Comments Imaging: Chest x-ray: Mild pulmonary vascular congestion. Chest CTA: No pulmonary embolus. Airways inflammation with streaky atelectatic changes. Abdominal ultrasound: 1. Cholelithiasis and gallbladder sludge without sonographic evidence of acute cholecystitis. 2. Heterogeneous and coarse liver parenchyma suggestive of chronic liver disease. Physical exam on discharge: General: Well alert, well oriented, not confused, not agitated, not in acute distress, well cooperated during the physical. HEENT: Conjunctive are pink, sclerae clear, no icterus, pupil is equal in both sides, reactive to light, no ear discharge, no pharyngeal erythema or an edema. Neck: Supple, no JVD, no lymphadenopathy and thyromegaly. Chest: Equal air entry on both lungs, bilateral diffuse wheeze in all lung quadrants, bilateral basal Crepts. Cardiovascular: S1-S2 regular sinus rhythm and, regular rate, no gallops, no rubs, no murmurs Abdomen: No visible peristalsis, Bowel sounds present on auscultation, soft, nontender, no guarding, no rigidity Extremities: No obvious deformities, no pitting edema bilaterally, capillary refill intact, peripheral pulsations are intact on both sides Central Nervous System: No focal neurological deficits, no motor or sensory weakness in all 4 extremities, could move all 4 extremities, 2+ deep tendon reflexes, negative Babinski. Musculoskeletal: No joint swelling, deformities, inflammations, and no scoliosis and back tenderness Skin: Warm and dry. Discharge instructions: You been started on 2 new medication. Doxycycline 100 mg p.o. b.i.d. for 5 days DuoNeb q.8h for 7 days Home medication Bumex 2 mg p.o. b.i.d. has been increased to 2 mg p.o. t.i.d. for 7 days. 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 *Problems/Diagnosis: (1) Pulmonary artery hypertension Status: Chronic (2) COPD with acute exacerbation Status: Acute (3) Acute bronchitis Status: Acute (4) Heart failure with preserved ejection fraction Status: Chronic Total Time Spent on D/C: > 30 Minutes Counseling Services Smoking & Tobacco Cessation: > 10 Minutes Date of Service: Feb 27, 2025 Billing Provider: SHOBHA CUEVA MD Common Visit Codes: 42800-ZDG/OBS DISCH DAY >30min OVIDIO MOSELEY, RES Feb 27, 2025 15:08 SHOBHA CUEVA MD Feb 28, 2025 06:47
== END 2025-02-27 11:48 | disposition home or self-care (01) | DRG 133 ==
LOC: ER 18:05 → ED HOLD 20:42 → PCU 3S 02-25 07:00
PROVIDERS: ADMIT Internal Medicine Critical Care Medicine; ATTEND Internal Medicine
PROC: B32T1ZZ Computerized Tomography (CT Scan) of Left Pulmonary Artery using Low Osmolar Contrast (ICD-10-PCS; principal; 2025-02-24)
PROC: B3201ZZ Computerized Tomography (CT Scan) of Thoracic Aorta using Low Osmolar Contrast (ICD-10-PCS; 2025-02-24)
PROC: B32S1ZZ Computerized Tomography (CT Scan) of Right Pulmonary Artery using Low Osmolar Contrast (ICD-10-PCS; 2025-02-24)
DX: J96.21 Acute and chronic respiratory failure with hypoxia (principal); I50.43 Acute on chronic combined systolic (congestive) and diastolic (congestive) heart failure; I21.A1 Myocardial infarction type 2; I27.21 Secondary pulmonary arterial hypertension; J44.1 Chronic obstructive pulmonary disease with (acute) exacerbation; E11.9 Type 2 diabetes mellitus without complications; Z20.822 Contact with and (suspected) exposure to COVID-19; I95.9 Hypotension, unspecified; J20.9 Acute bronchitis, unspecified; F15.90 Other stimulant use, unspecified, uncomplicated; E87.6 Hypokalemia; Z86.73 Personal history of transient ischemic attack (TIA), and cerebral infarction without residual deficits; Z87.891 Personal history of nicotine dependence
CPT/HCPCS: 36415; 71045; 71275; 76700; 80048; 80053; 80061; 80076; 80305; 81001; 81025; 82948; 82977; 83036; 83735; 83880; 84100; 84484; 84703; 85025; 85610; 85730; 87081; 87804; 87811; 93005; 94640; 94760; 99291; A4615; A4620; G0378; J0696; J1200; J1271; J1644; J1650; J1815; J2270; J2405; J2919; J3490; J7040; Q0163; Q0177; Q9967